=== PATIENT | male | born 1935 | race Caucasian/White ===

== ENCOUNTER 2019-12-08 00:03 | Day surgery (SDC) | payer MEDICARE, OTHER ==
[~2019-12-08 00:03] MED LIST: ACET325 PO; AMIT25 PO; AMLO10 PO; AMOCLA875 PO; ATOR20 PO; AZIT500 PO; Aspirin EC81 MG PO; BASAGLAR K100 UNIT/1 SC; DOXY100 IV; GABA100 PO; GABA300; GUAI600T33 PO; INSUASPI; INSULANI SC; LISI5 PO; OMEP20ER PO; PIOG15 PO; POTA10T PO; RANI150 PO; SACC250C PO; SIMV20; SULTRIDS PO; TORSE20 PO
[2019-12-14] MEDS ORDERED: CLIN300 PO (11:14)
[2019-12-14] MEDS ORDERED: PROBIOTIC ACID PO (11:18)
== END 2019-12-08 12:02 | disposition home or self-care (01) ==
LOC: ATC 00:03
DX: E11.621 Type 2 diabetes mellitus with foot ulcer (principal); L97.419 Non-pressure chronic ulcer of right heel and midfoot with unspecified severity; L03.115 Cellulitis of right lower limb; I10 Essential (primary) hypertension; E11.42 Type 2 diabetes mellitus with diabetic polyneuropathy; K21.9 Gastro-esophageal reflux disease without esophagitis; E11.22 Type 2 diabetes mellitus with diabetic chronic kidney disease; I12.9 Hypertensive chronic kidney disease with stage 1 through stage 4 chronic kidney disease, or unspecified chronic kidney disease; N18.3 Chronic kidney disease, stage 3 (moderate); E78.5 Hyperlipidemia, unspecified; F32.9 Major depressive disorder, single episode, unspecified; Z79.899 Other long term (current) drug therapy; Z79.4 Long term (current) use of insulin; Z79.82 Long term (current) use of aspirin; Z88.8 Allergy status to other drugs, medicaments and biological substances; Z87.891 Personal history of nicotine dependence; Z66 Do not resuscitate; Z85.51 Personal history of malignant neoplasm of bladder
CPT/HCPCS: 96365; 96366; C1751

== ENCOUNTER 2020-01-04 12:46 | Inpatient (IN) | payer OTHER, MEDICARE ==
[~2020-01-04] VITALS: Ht 190.5 cm; Wt 109.0 kg
[~2020-01-04 12:46] MED LIST changes: +CLIN300 PO; +PROBIOTIC ACID PO
[2020-01-04 13:29] LABS: BASOPHILS ABSOLUTE AUTO 0.04 K/mm3 (0.00-0.23); BASOPHILS PERCENT AUTO 0 % (0-2); EOSINOPHILS ABSOLUTE AUTO 0.04 K/mm3 (0.00-0.68); EOSINOPHILS PERCENT AUTO 0 % (0-6); Hematocrit 34.1 % (37.0-53.0); IMMATURE GRAN ABSOLUTE AUTO 0.08 K/mm3 (0.00-0.10); IMMATURE GRAN PERCENT AUTO 1 % (0-1); LYMPHOCYTES PERCENT AUTO 22 % (21-46); MONOCYTES ABSOLUTE AUTO 0.97 K/mm3 (0.16-1.47); MONOCYTES PERCENT AUTO 10 % (4-13); Mean Corpuscular HGB Conc 32.3 g/dL (31.5-36.5); Mean Corpuscular Volume 96 fL (80-100); NEUTROPHILS ABSOLUTE AUTO 6.51 K/mm3 (1.96-9.15); NEUTROPHILS PERCENT AUTO 67 % (41-73); Platelet Count 220 K/mm3 (150-400); RDW Coefficient Variation 15.5 % (11.7-14.2); RDW Standard Deviation 54.4 fL (35.1-46.3); Red Blood Cell Count 3.55 M/mm3 (4.30-5.90); White Blood Cell Count 9.74 K/mm3 (4.00-11.30)
[2020-01-04 13:55] LABS: Albumin, Blood 2.5 g/dL (3.4-5.0); Albumin/Globulin Ratio 0.8 (0.8-1.8); Bilirubin, Total 0.7 mg/dL (0.1-1.0); Bun/Creatinine Ratio 13.1 (12.0-20.0); Calcium, Blood 8.5 mg/dL (8.5-10.1); Creatinine, Blood 1.68 mg/dL (0.60-1.20); Globulin, Blood 3.3 g/dL (2.2-4.0); Potassium, Blood 3.5 mmol/L (3.5-5.5); Total Protein, Blood 5.8 g/dL (6.4-8.2); Troponin I 0.2 ng/mL (0.000-0.040)
[2020-01-04] MEDS ORDERED: CARVEDILOL12.5 MG PO (14:11)
[2020-01-04] MEDS ORDERED: ATOR20 PO (14:11)
[2020-01-04] MEDS ORDERED: AMLO10 PO (14:11)
[2020-01-04] MEDS ORDERED: BASAGLAR K100 UNIT/1 SC (14:11)
[2020-01-04] MEDS ORDERED: OMEP20ER PO (14:12)
[2020-01-04] MEDS ORDERED: LEVO750 PO (14:12)
[2020-01-04] MEDS ORDERED: Aspir 8181 MG PO (14:13)
[2020-01-04] MEDS ORDERED: SENN187 PO (14:13)
[2020-01-04] MEDS ORDERED: PREG150 PO (14:14)
[2020-01-04] MEDS ORDERED: DOCU100 PO (16:38)
[2020-01-04] MEDS ORDERED: Vitamin B Comple1 EA PO (16:39)
[2020-01-04] MEDS ORDERED: MULTI-VITAMIN1 EAC2 PO (16:39)
--- NOTE | 2020-01-04 22:07 | NUR ---
2138 PT ADMITTED TO ROOM 361 PER CART FROM ER; PT MOVED INTO BED VIA SLIDER SHEET X 4 ASSIST; PT ALERT AND ORIENTED X 4; PICTURES OBTAINED LEFT FOOT (PERMIT SIGNED); DENIES PAIN.
--- NOTE | 2020-01-04 23:08 | NUR ---
PTS NIGHTLY MEDS WERE INITIALLY ORDERED TO START 01/05/20; THIS NURSE CALLED Siena LANDAVERDE NP REGARDING PT REQUESTING NIGHT MEDS WITH THE FOLLOWING MEDS ORDERED: --LYRICA 150MG PO NOW --ASA 81MG PO NOW --LIPITOR 20MG PO NOW
--- NOTE | 2020-01-05 04:19 | NUR ---
SHIFT SUMMARY: 84 Y/O MALE RESTED COMFORTABLY ALL SHIFT; PTS RIGHT FOOT WITH DRAINAGE AND LEFT OPEN TO AIR; DENIES PAIN OR NAUSEA; PT HAS PODIATRY CONSULT WITH NO SERVICES AVAILABLE UNTIL 01/06; ALERT AND ORIENTED X 4; BED LOW POSITION WITH CALL LIGHT AT SIDE.
[2020-01-05 05:10] LABS: BASOPHILS ABSOLUTE AUTO 0.02 K/mm3 (0.00-0.23); BASOPHILS PERCENT AUTO 0 % (0-2); EOSINOPHILS ABSOLUTE AUTO 0.09 K/mm3 (0.00-0.68); EOSINOPHILS PERCENT AUTO 1 % (0-6); Hematocrit 32.3 % (37.0-53.0); Hemoglobin 10.5 g/dL (13.5-17.5); IMMATURE GRAN ABSOLUTE AUTO 0.05 K/mm3 (0.00-0.10); IMMATURE GRAN PERCENT AUTO 1 % (0-1); LYMPHOCYTES ABSOLUTE AUTO 1.76 K/mm3 (0.84-5.20); LYMPHOCYTES PERCENT AUTO 23 % (21-46); MONOCYTES ABSOLUTE AUTO 0.71 K/mm3 (0.16-1.47); MONOCYTES PERCENT AUTO 9 % (4-13); Mean Corpuscular HGB 30.7 pg (26.0-34.0); Mean Corpuscular HGB Conc 32.5 g/dL (31.5-36.5); Mean Corpuscular Volume 94 fL (80-100); Mean Platelet Volume 9.3 fL (9.1-12.4); NEUTROPHILS ABSOLUTE AUTO 4.91 K/mm3 (1.96-9.15); NEUTROPHILS PERCENT AUTO 65 % (41-73); Platelet Count 236 K/mm3 (150-400); RDW Coefficient Variation 15.6 % (11.7-14.2); RDW Standard Deviation 53.6 fL (35.1-46.3); Red Blood Cell Count 3.42 M/mm3 (4.30-5.90); White Blood Cell Count 7.54 K/mm3 (4.00-11.30)
--- NOTE | 2020-01-05 13:41 | NUR ---
ECHOCARDIOGRAM COMPLETE
--- NOTE | 2020-01-05 17:06 | NUR ---
SHIFT SUMMARY PATIENT HAS BEEN ALERT AND ORIENTED THROUGHOUT THIS SHIFT. PATIENT IS FRIENDLY AND COOPERATIVE WITH CARE. PATIENT HAS BEEN IN BED THROUGHOUT THIS SHIFT DUE TO DIFFICULTY TRANSFERING WITH WOUND ON HIS FOOT. PATIENT'S SPOUSE IN THE ROOM THIS AM. PATIENT CURRENTLY LAYING IN BED SLEEPING.
--- NOTE | 2020-01-05 22:14 | NUR ---
ALERT AND ORIENTED. TOLERATED HS MEDS, REQUESTED AND RECEIVED STOOL SOFTENER WHICH WAS ALREADY ORDERED - CUSHION DRESSING APPLIED TO DRY ULCER ON BOTTOM OF RIGHT FOOT. VOICED HE WOULD DISCUSS IT WITH THE MD IN THE AM. CALL LIGHT IN REACH
[2020-01-06 04:51] LABS: BASOPHILS ABSOLUTE AUTO 0.02 K/mm3 (0.00-0.23); BASOPHILS PERCENT AUTO 0 % (0-2); EOSINOPHILS ABSOLUTE AUTO 0.08 K/mm3 (0.00-0.68); EOSINOPHILS PERCENT AUTO 1 % (0-6); Hematocrit 33.5 % (37.0-53.0); Hemoglobin 10.8 g/dL (13.5-17.5); IMMATURE GRAN ABSOLUTE AUTO 0.05 K/mm3 (0.00-0.10); IMMATURE GRAN PERCENT AUTO 1 % (0-1); LYMPHOCYTES ABSOLUTE AUTO 2.19 K/mm3 (0.84-5.20); LYMPHOCYTES PERCENT AUTO 31 % (21-46); MONOCYTES ABSOLUTE AUTO 0.72 K/mm3 (0.16-1.47); MONOCYTES PERCENT AUTO 10 % (4-13); Mean Corpuscular HGB 30.7 pg (26.0-34.0); Mean Corpuscular HGB Conc 32.2 g/dL (31.5-36.5); Mean Corpuscular Volume 95 fL (80-100); Mean Platelet Volume 9.2 fL (9.1-12.4); NEUTROPHILS ABSOLUTE AUTO 3.96 K/mm3 (1.96-9.15); NEUTROPHILS PERCENT AUTO 56 % (41-73); Platelet Count 247 K/mm3 (150-400); RDW Coefficient Variation 15.8 % (11.7-14.2); RDW Standard Deviation 55.3 fL (35.1-46.3); Red Blood Cell Count 3.52 M/mm3 (4.30-5.90); White Blood Cell Count 7.02 K/mm3 (4.00-11.30)
--- NOTE | 2020-01-06 05:03 | NUR ---
SHIFT SUMMARY HAS BEEN RESTING QUIETLY WITH FEW INTERRUPTIONS THIS SHIFT. RECEIVED PAIN MED X 1, MED EFFECTIVE. THOMAS DRAINING. CALL LIGHT IN REACH
[2020-01-06 05:25] LABS: Bun/Creatinine Ratio 11.5 (12.0-20.0); Calcium, Blood 8.7 mg/dL (8.5-10.1); Creatinine, Blood 1.3 mg/dL (0.60-1.20); Potassium, Blood 3.7 mmol/L (3.5-5.5)
--- NOTE | 2020-01-06 14:55 | NUR ---
PATIENT HAS NO ACUTE EVENTS TO REPORT OF AT THIS TIME. CONTINUES ON IV ABX WITHOUT S/SX OF ADVERSE REACTIONS NOTED OR REPORTED. VITALS ARE STABLE. WILL CONTINUE TO MONITOR AND PROVIDE CARE NEEDED.
[2020-01-06 16:08] LABS: Vancomycin, Trough 9.8 ug/mL (5.0-10.0)
--- NOTE | 2020-01-06 19:33 | NUR ---
AWAKENED FOR SHIFT CHANGE. AFFECT PLEASANT. REQUESTED AND RECEIVED CUP OF COLD WATER AND EYE DROPS. NO COMPLAINTS VOICED. CALL LIGHT IN REACH.
--- NOTE | 2020-01-07 05:40 | NUR ---
SHIFT SUMMARY HAS BEEN RESTING QUIETLY WITH EFW INTERRUPTIONS THIS SHIFT AFTER RECEIVING HS MEDS. NO NOTED DISTRESS. DRESSING OF RIGHT FOOT INTACT. CALL LIGHT IN REACH.
--- NOTE | 2020-01-07 17:59 | NUR ---
SHIFT SUMMARY PT IS A&OX4. PT IS NON WEIGHT BEARING AND HAS REMAINED IN BED DURING SHIFT. PT ABLE TO CHANGE POSITIONS IN BED WITHOUT ASSISTANCE. HE HAS COMPLAINED OF EYE PAIN DURING SHIFT. PRN ACETOMENTOPHEN AND COOL WASH CLOTH WAS USED TO REDUCE PAIN LEVEL. BEFORE ADDITIONAL ACETAMINOPHEN COULD BE GIVEN PT REQUESTED ADDITIONAL PAIN MED FOR EYE PAIN. PRN NORCO WAS GIVEN, COOLD WASH CLOTH WAS USED AND EYE PAIN REDUCED. PT STILL USING COOL WASH CLOTH ON EYE. PT HAS BEEN IN ROOM THROUGHOUT SHIFT. PT DENIES N/V. PT IS DNR BUT IS NOT WEARING BRACELET. PT DOES NOT WANT TO WEAR BRACELET IN SURGERY BUT CONFIRMED DNR STATUS. PT IN ROOM WITH WATCHING TV.
--- NOTE | 2020-01-08 04:32 | NUR ---
SHIFT SUMMARY HAS BEEN RESTING QUIETLY WITH EFW INTERRUPTIONS THIS SHIFT. MED TELE SINUS ERIC. REQUESTED AND RECEIVED "TWO SENOKOT". RESTING QUIETLY AT THIS WRITING. CALL LIGHT IN REACH. RIGHT FOOT SLIGHTLY SWOLLEN, AWAITING PROCEDURE APPARENTLY SCHEDULED FOR TOMORROW.
[2020-01-08 05:00] LABS: BASOPHILS ABSOLUTE AUTO 0.03 K/mm3 (0.00-0.23); BASOPHILS PERCENT AUTO 0 % (0-2); EOSINOPHILS ABSOLUTE AUTO 0.13 K/mm3 (0.00-0.68); EOSINOPHILS PERCENT AUTO 1 % (0-6); Hematocrit 34.6 % (37.0-53.0); IMMATURE GRAN ABSOLUTE AUTO 0.09 K/mm3 (0.00-0.10); IMMATURE GRAN PERCENT AUTO 1 % (0-1); LYMPHOCYTES PERCENT AUTO 24 % (21-46); MONOCYTES ABSOLUTE AUTO 0.82 K/mm3 (0.16-1.47); MONOCYTES PERCENT AUTO 8 % (4-13); Mean Corpuscular HGB 30.1 pg (26.0-34.0); Mean Corpuscular HGB Conc 31.8 g/dL (31.5-36.5); Mean Corpuscular Volume 95 fL (80-100); Mean Platelet Volume 8.9 fL (9.1-12.4); NEUTROPHILS ABSOLUTE AUTO 6.48 K/mm3 (1.96-9.15); NEUTROPHILS PERCENT AUTO 65 % (41-73); Platelet Count 253 K/mm3 (150-400); RDW Coefficient Variation 15.8 % (11.7-14.2); RDW Standard Deviation 54.5 fL (35.1-46.3); Red Blood Cell Count 3.65 M/mm3 (4.30-5.90); White Blood Cell Count 9.95 K/mm3 (4.00-11.30)
[2020-01-08 05:24] LABS: Anion Gap 4 mmol/L (6-16); Blood Urea Nitrogen 13 mg/dL (8-24); Bun/Creatinine Ratio 10.9 (12.0-20.0); CO2, Blood 28 mmol/L (21-32); Chloride, Blood 110 mmol/L (98-108); Creatinine, Blood 1.19 mg/dL (0.60-1.20); Glomerular Filtration Rate >60 (60-); Glucose, Blood 66 mg/dL (70-99); Potassium, Blood 4.4 mmol/L (3.5-5.5); Sodium, Blood 142 mmol/L (136-145)
--- NOTE | 2020-01-08 11:28 | NUR ---
Pt. id much better encouraged pt. and offered prayers.
[2020-01-08 15:43] LABS: Vancomycin, Trough 13.8 ug/mL (5.0-10.0)
--- NOTE | 2020-01-08 17:56 | NUR ---
SHIFT SUMMARY PT IS A&OX4. PT EXPERIENCED EYE PAIN IN THE MORNING AND MEDICATED WITH PRN NORCO THAT HELPED TO REDUCE THE PAIN. PT HAD A HEADACHE IN THE AFTERNOON AND RECEIVED PRN ACETAMENOPHEN AND COOL WASHCLOTH. PT REPORTED THE HEADACHE WAS RESOLVED. PT FAMILY, AND DAUGHTER, HAS COME TO VISIT DURING SHIFT. PT WAS GIVEN THE OKAY TO SIT ON THE SIDE OF THE BED DRUING MEALS BY PT. SURGERY IS SCHEDULE FOR TOMORROW. AFTERNOON SCHEDULED COREG HELD DUE TO PULSE OF 53. PT IS WATCHING TV IN ROOM, DENIES N,V & P AT THIS.
--- NOTE | 2020-01-09 00:25 | NUR ---
covid 19 specimen obtained and taken to lab for processing. Call light in reach
--- NOTE | 2020-01-09 03:57 | NUR ---
SHIFT SUMMARY HAS BEEN NPO SINCE 99 FOR PROCEDURE SCHEDULED TODAY OF RIGHT FOOT. RESTING QUIETLY WITH FEW INTERRUPTIONS. CALL LIGHT IN REACH
--- NOTE | 2020-01-09 13:37 | NUR ---
Met. pt. lying in bed and is much better,encouraged pt. and offered spirfitual support and prayers
--- NOTE | 2020-01-09 15:00 | NUR ---
TRANSFERED TO [facility]IA GURNEY FROM [facility]. History, Chart, Medications and Allergies reviewed before start of procedure. Lungs clear T/O to Auscultation. Patient confirms NPO status and agrees with scheduled surgery. Pre-Op teaching done. Pt verbalizes understanding.
--- NOTE | 2020-01-09 17:21 | NUR ---
DR. GIL ORDERED 25ML 50% DEXTROSE IV NOW FOR CBG 81.
--- NOTE | 2020-01-09 17:24 | NUR ---
SHIFT SUMMARY PT NPO FOR SURGICAL PROCEDURE. PT BG AT 66 AND GAVE IV DEXTROSE X2 THIS SHIFT PRIOR TO SURGERY. PT TRANSFERRED FOR SURGERY AT 1435. PT MEDICATED X1 FOR HEADACHE THIS SHIFT PRIOR TO SURGERY PER EMAR. CURRENTLY AWAITING PT TRANSFER BACK TO UNIT.
--- NOTE | 2020-01-10 06:43 | NUR ---
SHIFT SUMMARY PT IS AN 84 Y/O MALE, ADMITTED FOR RLE OSTEOMYELITIS. HE IS A&0 X 2, AND CURRENTLY ON BEDREST. PT IS 1 DAY POST R GREAT TOE AMPUTATION. SURGICAL DRESSING IS C/D/I. PT WAS MEDICATED ONCE FOR PAIN IN HIS SURGICAL SITE WITH PO NORCO. NO COMPLAINTS OF NAUSEA OR SOB. UROSTOMY IN PLACE, PATENT AND DRAINING CLEAR YELLOW URINE. TELE SHOWING SINUS ERIC IN THE 50S. VITAL SIGNS OTHERWISE STABLE. PT SLEPT WELL THROUGH THE NIGHT. NO OTHER ACUTE CHANGES IN PT CONDITION NOTED. WILL CONTINUE TO MONITOR AND TREAT PER EMAR UNTIL HAND OFF TO DAY SHIFT RN.
[2020-01-10 15:35] LABS: Vancomycin, Trough 17.1 ug/mL (5.0-10.0)
--- NOTE | 2020-01-10 17:20 | NUR ---
SHIFT SUMMARY PT MEDICATED FOR PAIN X3 THIS SHIFT. PT GROANS WHEN IN PAIN AND DID NOT CALL TO NOTIFY ABOUT PAIN. FREQUENT ROUNDING REQUIRED TO MANAGE PT STATUS DUE TO PT COGNITION. PT REPORTS INFREQUENT PAIN IN RIGHT FOOT. PT DID NOT NEED INSULIN COVERAGE THIS SHIFT AND HAS POOR INTAKE FOR BREAKFAST AND LUNCH. PT WORKED WITH THE PT THIS AM. PT REPORTS PT IS A 2 PERSON TRANSFER. PATIENT IS AOX2-3. RIGHT FOOT IS ELEVATED ON A PILLOW. HAS BEEN IN AND OUT THROUGHOUT THE DAY. CALL LIGHT IS IN REACH AND BED IS IN LOW POSITION.
--- NOTE | 2020-01-11 06:26 | NUR ---
SHIFT SUMMARY PT IS AN 84 Y/O MALE, ADMITTED FOR RLE OSTEOMYELITIS AND 1 DAY POST R GREAT TOE AMPUTATION. SURGICAL DRESSING IS C/D/I. PT IS A&O X 2, AND CURRENTLY ON BEDREST/2P MAX ASSIST. HE WAS MEDICATED TWICE FOR PAIN WITH PRN HYDROCODONE. NO COMPLAINTS OF NAUSEA OR SOB. VITAL SIGNS STABLE. PT SLEPT WELL THROUGH THE NIGHT. NO ACUTE CHANGES IN PT CONDITION NOTED. WILL CONTINUE TO MONITOR AND TREAT PER EMAR UNTIL HAND OFF TO DAY SHIFT RN.
--- NOTE | 2020-01-11 07:21 | NUR ---
ASSUMED CARE OF PT- BEDSIDE REPORT COMPLETED WITH NIGHT NATE JOY. PT ALERT AND ORIENTED 2P MAX ASSIST WITH TRANSFERS RIGHT GREAT TOE AMPUTATION TUESDAY. STILL HAS SURGICAL DRESSING IN PLACE. PT ON TELE SBR AT 57. PT CALLED JUST AFTER REPORT C/O "REAL PAIN" IN HIS RIGHT FOOT. PT HAS PAIN MEDS IN EMAR AVAILABLE SHORTLY, WILL MEDICATE WHEN AVAILABLE.
[2020-01-11 09:14] LABS: Albumin, Blood 2.4 g/dL (3.4-5.0); Anion Gap 6 mmol/L (6-16); Blood Urea Nitrogen 16 mg/dL (8-24); Bun/Creatinine Ratio 15.2 (12.0-20.0); CO2, Blood 25 mmol/L (21-32); Calcium, Blood 8.4 mg/dL (8.5-10.1); Chloride, Blood 108 mmol/L (98-108); Creatinine, Blood 1.05 mg/dL (0.60-1.20); Glomerular Filtration Rate >60 (60-); Glucose, Blood 98 mg/dL (70-99); Phosphorus, Blood 2.6 mg/dL (2.5-4.9); Potassium, Blood 4.2 mmol/L (3.5-5.5); Sodium, Blood 139 mmol/L (136-145)
[2020-01-11 09:26] LABS: Hematocrit 33.3 % (37.0-53.0); Hemoglobin 10.6 g/dL (13.5-17.5); Mean Corpuscular HGB 30.5 pg (26.0-34.0); Mean Corpuscular HGB Conc 31.8 g/dL (31.5-36.5); Mean Corpuscular Volume 96 fL (80-100); Mean Platelet Volume 9.2 fL (9.1-12.4); Platelet Count 244 K/mm3 (150-400); RDW Coefficient Variation 16.1 % (11.7-14.2); RDW Standard Deviation 55.8 fL (35.1-46.3); Red Blood Cell Count 3.48 M/mm3 (4.30-5.90); White Blood Cell Count 10.35 K/mm3 (4.00-11.30)
--- NOTE | 2020-01-11 19:49 | NUR ---
SHIFT SUMMARY- PT HAS HAD NO ACUTE CHANGE T/O THE SHIFT. PAIN MEDS PRN. CALLED DR TO GET PARAMETERS FOR CARVEDILOL THE PT HR HAS BEEN ERIC. SEE EMAR FOR DETAILS. LANTUS DOSE ADRESSED WELL SINCE THE PT BG'S HAVE BEEN A LITTLE LOW AND THE PT HAS DECLINED TO TAKE HIS LANTUS DT LOW SUGARS A COUPLE OF TIMES RECENTLY. CAME AND CHANGED THE WOUND DRESSING AT THE SURGICAL SITE. REQUESTED THAT HE PLACE WOUND CARE ORDERS FOR STAFF IF WE ARE TO DO THE DRESSING CHANGE. STATED THE DRESSING WILL NOT NEED TO BE CHANGED UNTIL TUESDAY. BEDSIDE REPORT COMPLETED WITH NIGHT RN PT IN BED CALL LIGHT IN REACH NO S&S OF DISTRESS NOTED AT THE TIME OF SHIFT CHANGE.
--- NOTE | 2020-01-12 04:02 | NUR ---
SHIFT SUMMARY ADMITTED FOR OSTEOMYELITIS OF RT FOOT. DNR CODE. PLAN IS FOR DC TO [facility], POSSIBLY TUESDAY. A UROSTOMY IS IN PLACE AND DRAINING PATENT INTO A THOMAS BAG. THAT DRESSING WAS CHANGED 01/10. THIS PT UNDERWENT AN AMPUTATION OF HIS RT GREAT TOE. HIS RT FOOT DRESSING WAS CHANGED ON 01/10. IV ANTIBIOTICS ARE SCHEDULED. TELEMETRY: ERIC @ 53 BPM. HE DOES DESATURATE WHEN LAYING FLAT. PERTINENT HX: NEUROPATHY, DM2
--- NOTE | 2020-01-12 07:17 | NUR ---
ASSUMED CARE OF PT- BEDSIDE REPORT COMPLETED WITH NIGHT NATE RUBI. PT HAD NO ACUTE CHANGE T/O THE NIGHT. PT REFUSED TO WEAR THE CPAP SATS MAINTAINED UNTIL HE SLEPT ON HIS BACK THEN HE DESATURATED TO THE LOW 80'S. SATS IN THE LOW TO MID 90'S AT THIS TIME LYING ON HIS RIGHT SIDE.
[2020-01-12 15:40] LABS: Vancomycin, Trough 16.9 ug/mL (5.0-10.0)
--- NOTE | 2020-01-12 17:15 | NUR ---
SHIFT SUMMARY- PT HAS HAD NO ACUTE CHANGES T/O THE SHIFT. PT HAS BEEN UP IN CHAIR FOR ALL MEALS AND RECIEVED A FULL BED BATH. ALL HEPARIN INJECTIONS REQUIRE A BANDAID. PT WILL BLEED PROFUSELY FROM THE INJECTION SITE WITHOUT IT. PT CURRENTLY UP IN THE CHAIR AWAITING DINNER, MEDICATED FOR PAIN IN THE RIGHT FOOT /10 PER EMAR. PT CARVEDILOL GIVEN, HR HAS BEEN TRENDING IN THE 60'S MOST OF THE DAY. PER MD PARAMETERS MED ADMINISTERED.
--- NOTE | 2020-01-13 04:01 | NUR ---
[employer] UNIT FEEDER SUMMARY PT APPEARED TO SLEEP T/O MOST OF SHIFT. USES CALL LIGHT APPROPRIATELY. DENIES PAIN OR DISCOMFORT. NO ACUTE CHANGES OR SIGNS OF DISTRESS. RA WITH CONTINOUS BIOX IN PLACE. BED IN LOWEST POSITION WITH CALL LIGHT IN REACH. WILL CONTINUE TO MONITOR AND REPORT TO ONCOMING RN.
--- NOTE | 2020-01-13 18:43 | NUR ---
SHIFT SUMMARY- PT PLANNED TO GET BACK INTO BED AT 1630 FOR THE VANCO INFUSION AND RN WOULD PERFORM WOUND CARE. BOTH OF PT IV ACCESS WERE LOST ONE INFILTRATED AND THE OTHER NOT PATENT AND LEAKING. ATTEMPTED TO START IV IN THE RIGHT FOREARM, UNSUCESSFUL, CALLED CLINICAL ACCOUNT MANAGER TO ATTEMPT A POWER GLIDE, CLINICAL ACCOUNT MANAGER TRIED PG PLACEMENT AND THEN TRIED A PERIPHERAL AND GOT A GOOD PATENT IV IN THE LEFT AC. PT MAY NEED A PICC LINE FOR OUT PT ABX. IV VANCO STARTED LATE D/T NO ACCESS, PO CARVEDILOL HAS BEEN HELD TODAY D/T BRADYCARDIA ON TELE PER PARAMETERS. PT HAS NOT YET HAD THE PLANNED WOUND CARE TODAY D/T ATTEMPTS TO GAIN IV ACCESS. PT HAS HAD NO ACUTE CHANGES T/O THE SHIFT AND HAS NOT NEEDED ANY PAIN MANAGEMENT MEDS TODAY SO FAR. PT CURRENTLY IN BED CALL LIGHT IN REACH, IV VANCO RUNNING IN NEW LEFT AC IV AND PT IS ATTEMPTING TO EAT DINNER.
[2020-01-14] MEDS ORDERED: UBID10 PO (11:37)
[2020-01-14] MEDS ORDERED: AMOCLA875 PO (11:38)
[2020-01-14] MEDS ORDERED: ARTIFICIAL TEAR15 M2 BOTHEYES (11:38)
[2020-01-14] MEDS ORDERED: LACT PO (11:38)
--- NOTE | 2020-01-14 12:24 | NUR ---
pt wanted to rest will return to attemtp advance directives.
--- NOTE | 2020-01-14 15:03 | NUR ---
Met pt. sitting in a chair resting ,pt. reports doing and may be harvey g home today or felicita offered prayers for the pt.
--- NOTE | 2020-01-14 16:20 | NUR ---
SUMMARY/DISCHARGE PT UP w [facility] THIS AM, AMBULATE IN [place] w [facility] TO EXERCISE ROOM & BACK. OCCTHER IN FOR TX/EVAL. PT/OT RECOMMEND HOME w HOMEHEALTH. DR SINGER INITIALLY ORDER [facility] HOWEVER CHANGE ORDERS TO HOME w HH. LEATHER PIECE INSPECTOR STATE HH WILL BE UNAVAIL X 2WKS. DR ORDER WOUND CLINIC DRSG CHANGES HOWEVER SOLE CEMENTER STATE WHEN ATTEMPT TO ARRANGE WAS TOLD WOUND CLINIC BOOKED OUT 3 WKS. ARRANGE APPT w DR LAST FOR THUR FOR NEXT WOUND CARE/DRSG CHANGE. NOC RN PLACED NEW DRSG DURING NOC. PT STATE SHE IS FAMILIAR AFTER WATCHING PROCEDURE w DR LAST, STATE FEELS CAPABLE OF WOUND CARE. SUPPLIES PROVIDED, DRSG CHANGE ORDERS REVIEWED w . D/C INSTRUCT PROVIDED. IV D/C INTACT. RECREATION THERAPY DIRECTOR PROVIDE BEDBATH & ASSIST PT TO DRESS/GATHER BELONGINGS. W/C ESCORT FROM HOSP PROVIDED. PT & STATE SATISFACTION, PLEASANT/APPRECIATIVE.
== END 2020-01-14 16:08 | disposition home health service (06) | DRG 616 ==
LOC: ER 12:46 → MEDS 22:00
PROVIDERS: Emergency Medicine; Internal Medicine; Nurse Practitioner Acute Care; Pharmacist; Podiatrist; ADMIT Internal Medicine
PROC: 0Y6R0Z0 Detachment at Right 2nd Toe, Complete, Open Approach (ICD-10-PCS; 2020-01-09)
PROC: 0Y6P0Z0 Detachment at Right 1st Toe, Complete, Open Approach (ICD-10-PCS; principal; 2020-01-09 17:15)
DX: E11.621 Type 2 diabetes mellitus with foot ulcer (principal); I21.A1 Myocardial infarction type 2; C85.90 Non-Hodgkin lymphoma, unspecified, unspecified site; M86.171 Other acute osteomyelitis, right ankle and foot; M00.9 Pyogenic arthritis, unspecified; L97.514 Non-pressure chronic ulcer of other part of right foot with necrosis of bone; Z11.59 Encounter for screening for other viral diseases; E11.69 Type 2 diabetes mellitus with other specified complication; E11.40 Type 2 diabetes mellitus with diabetic neuropathy, unspecified; F32.9 Major depressive disorder, single episode, unspecified; I35.0 Nonrheumatic aortic (valve) stenosis; I48.91 Unspecified atrial fibrillation; K21.9 Gastro-esophageal reflux disease without esophagitis; I12.9 Hypertensive chronic kidney disease with stage 1 through stage 4 chronic kidney disease, or unspecified chronic kidney disease; E11.22 Type 2 diabetes mellitus with diabetic chronic kidney disease; N18.3 Chronic kidney disease, stage 3 (moderate); R55 Syncope and collapse; K59.09 Other constipation; Z91.81 History of falling; Z85.51 Personal history of malignant neoplasm of bladder; E78.5 Hyperlipidemia, unspecified; Z85.46 Personal history of malignant neoplasm of prostate; Z87.891 Personal history of nicotine dependence; Z66 Do not resuscitate
CPT/HCPCS: 36415; 70450; 73630; 80048; 80053; 80069; 80202; 82565; 82947; 83605; 83880; 84484; 85025; 85027; 85651; 86140; 87040; 87071; 87075; 87205; 88305; 88311; 93005; 93010; 93306; 93922; 93971; 94762; 96365; 96366; 97110; 97112; 97116; 97162; 97166; 97530; 97535; 99285-25; A9270; A9270-GY; J0696; J1644; J2704; J3010; J3370; J7050; U0002

== ENCOUNTER 2020-02-16 14:40 | Inpatient (IN) | payer MEDICARE, OTHER ==
[~2020-02-16] VITALS: Ht 190.5 cm; Wt 104.1 kg
[~2020-02-16 14:40] MED LIST changes: +ARTIFICIAL TEAR15 M2 BOTHEYES; +Aspir 8181 MG PO; +CARVEDILOL12.5 MG PO; +DOCU100 PO; +LACT PO; +LEVO750 PO; +MULTI-VITAMIN1 EAC2 PO; +PREG150 PO; +SENN187 PO; +UBID10 PO; +Vitamin B Comple1 EA PO
[2020-02-16 15:13] LABS: BASOPHILS ABSOLUTE AUTO 0.05 K/mm3 (0.00-0.23); BASOPHILS PERCENT AUTO 0 % (0-2); EOSINOPHILS ABSOLUTE AUTO 0.03 K/mm3 (0.00-0.68); EOSINOPHILS PERCENT AUTO 0 % (0-6); Hematocrit 34.7 % (37.0-53.0); Hemoglobin 11.2 g/dL (13.5-17.5); IMMATURE GRAN ABSOLUTE AUTO 0.17 K/mm3 (0.00-0.10); IMMATURE GRAN PERCENT AUTO 1 % (0-1); LYMPHOCYTES ABSOLUTE AUTO 3.56 K/mm3 (0.84-5.20); LYMPHOCYTES PERCENT AUTO 18 % (21-46); MONOCYTES ABSOLUTE AUTO 1.11 K/mm3 (0.16-1.47); MONOCYTES PERCENT AUTO 6 % (4-13); Mean Corpuscular HGB 30.6 pg (26.0-34.0); Mean Corpuscular HGB Conc 32.3 g/dL (31.5-36.5); Mean Corpuscular Volume 95 fL (80-100); Mean Platelet Volume 9.4 fL (9.1-12.4); NEUTROPHILS ABSOLUTE AUTO 14.53 K/mm3 (1.96-9.15); NEUTROPHILS PERCENT AUTO 75 % (41-73); NRBC ABSOLUTE 0.03 K/mm3 (0.00-0.02); NRBC Auto 0.2 /100 WBC (0.0-0.2); Platelet Count 196 K/mm3 (150-400); RDW Coefficient Variation 18.6 % (11.7-14.2); RDW Standard Deviation 65.3 fL (35.1-46.3); Red Blood Cell Count 3.66 M/mm3 (4.30-5.90); White Blood Cell Count 19.45 K/mm3 (4.00-11.30)
[2020-02-16 15:39] LABS: Albumin, Blood 3.5 g/dL (3.4-5.0); Albumin/Globulin Ratio 1.5 (0.8-1.8); Bun/Creatinine Ratio 17.6 (12.0-20.0); Calcium, Blood 8.6 mg/dL (8.5-10.1); Creatinine, Blood 1.25 mg/dL (0.60-1.20); Globulin, Blood 2.3 g/dL (2.2-4.0); Potassium, Blood 4.1 mmol/L (3.5-5.5); Total Protein, Blood 5.8 g/dL (6.4-8.2); Troponin I 0.031 ng/mL (0.000-0.040)
[2020-02-16 18:02] LABS: Adenovirus Not Detected (NOT DETECT); Bordetella pertussis Not Detected (NOT DETECT); Chlamydophila pneumoniae Not Detected (NOT DETECT); Coronavirus 229E Not Detected (NOT DETECT); Coronavirus HKU1 Not Detected (NOT DETECT); Coronavirus NL63 Not Detected (NOT DETECT); Coronavirus OC43 Not Detected (NOT DETECT); Human Metapneumovirus Not Detected (NOT DETECT); Human Rhinovirus/Enterovirus Not Detected (NOT DETECT); Influenza A/2009-H1 Not Detected (NOT DETECT); Influenza A/H1 Not Detected (NOT DETECT); Influenza A/H3 Not Detected (NOT DETECT); Influenza B Not Detected (NOT DETECT); Mycoplasma pneumoniae Not Detected (NOT DETECT); Parainfluenza Virus 1 Not Detected (NOT DETECT); Parainfluenza Virus 2 Not Detected (NOT DETECT); Parainfluenza Virus 3 Not Detected (NOT DETECT); Parainfluenza Virus 4 Not Detected (NOT DETECT); Respiratory Syncytial Virus Not Detected (NOT DETECT); SARS-Cov-2 (COVID-19), BioFire Not Detected (NOT DETECT)
[2020-02-17 02:20] LABS: Hematocrit 35.2 % (37.0-53.0); Hemoglobin 11.3 g/dL (13.5-17.5); Mean Corpuscular HGB 30.8 pg (26.0-34.0); Mean Corpuscular HGB Conc 32.1 g/dL (31.5-36.5); Mean Corpuscular Volume 96 fL (80-100); Mean Platelet Volume 9.5 fL (9.1-12.4); Platelet Count 212 K/mm3 (150-400); RDW Coefficient Variation 18.9 % (11.7-14.2); RDW Standard Deviation 67.7 fL (35.1-46.3); Red Blood Cell Count 3.67 M/mm3 (4.30-5.90); White Blood Cell Count 32.76 K/mm3 (4.00-11.30)
[2020-02-17 02:36] LABS: Bun/Creatinine Ratio 18.7 (12.0-20.0); Calcium, Blood 8.4 mg/dL (8.5-10.1); Creatinine, Blood 1.39 mg/dL (0.60-1.20); Potassium, Blood 4.5 mmol/L (3.5-5.5)
--- NOTE | 2020-02-17 06:13 | NUR ---
SHIFT SUMMARY PT WAS A NEW ADMIT DURING THE NIGHT, ADMITTED FOR NEW ONSET CHEST PAIN. HE IS A&O X 2, VERY FORGETFUL AT TIMES. PT DENIED CHEST PAIN ON ARRIVAL, BUT PER INSULATOR APPRENTICE DID COMPLAIN OF CHEST PAIN FOR A SHORT PERIOD OF TIME WHILE IN IMAGING FOR CTA, BUT DENIED ON RETURN TO THE FLOOR. TROP INCREASED DURING THE NIGHT, FROM 0.031 IN THE ED, TO 4.190 AT 2003 [address]0 16.[address] KIMBROUGH NOTIFIED, PT STARTED ON HEPARIN DRIP AT 13 U/KG/HR OR 26 ML/HR. PT ADMITTED AND REMAINED ON BIPAP WITH 8L BLEED IN DUE TO DESATTING TO THE 80S WHEN ASLEEP. VITAL SIGNS OTHERWISE STABLE. NO COMPLAINTS OF ACUTE SOB OR NAUSEA. NO OTHER CHANGES IN PT CONDITION NOTED SINCE ADMISSION. WILL CONTINUE TO MONITOR AND TREAT PER EMAR UNTIL HAND OFF TO DAY SHIFT RN.
--- NOTE | 2020-02-17 09:38 | NUR ---
ASSUME CARE: PT IS ALERT BUT IS FORGETFUL, WAS ON BIPAP THIS MORNING WITH 8L O2 BLEED SATS ABOVE 90%, HRR SINUS AT 70'S, BP SYSTOLIC 125, AFEBRILE. PT STARTED GETTING A LITTLE AGITATED TOOK OFF HIS BIPAP PT WAS PUT ON 8L O2 VIA OXIMYZER THEN PT TOOK IT OFF AGAIN PT DESATS TO 70-80'S RT WAS CALLED AND WAS IN THE ROOM SWITCED PT BACK TO BIPAP, PT COMPLAINING HE COULDNT BREATHE WITH THE MASK ON THEN STARTED HAVING CHEST PAINS THAT STAYS ON THE CENTER OF THE CHEST 5/10 PAIN, DR BROWNLEE MADE AWARE ORDER TO DO EKG, NITRO PATCH AND TABLET. EKG SHOWS SOME ST DEPRESSION PER DR BROWNLEE, PT STATED THE NITRO HELPED WITH THE PAIN WENT DOWN TO 4/[address] BANDA AND DR BROWNLEE DISCUSSED WITH THE ABOUT THE ANGIO PROCEDURE, PT FOR ANGIO TODAY. PT REMAINED ON BIPAP, HEPARIN GTT AT 13U/KG/HR, REMAINS AT BEDSIDE.
--- NOTE | 2020-02-17 10:18 | NUR ---
PT TAKEN TO HEALTHCARE RISK CONTROL CONSULTANT AT THIS TIME FOR ANGIO PROCEDURE.
--- NOTE | 2020-02-17 12:30 | NUR ---
INITIAL ASSESSMENT PATIENT LETH[place], [place]. PATIENT ALERT AND ORIENTED EXCEPT TO TOWN AND WHY HE IS IN THE HOSPITAL. PATIENT WEAK BUT ABLE TO MOVE ALL EXTREMITIES. PATIENT AFEBRILE. PATIENT COMPLAINS OF 4/10 CHEST PAIN. NITRO DRIP INFUSING. PATIENT SATTING 90% AND GREATER ON CPAP 20/10, 8 L OXYGEN BLEED IN. INSPIRATORY WHEEZE NOTED IN RIA. RUL CLEAR. LOWER LOBES DIMINISHED TO AUSCULTATION. PATIENT COUGHING UP SMALL AMOUNT OF THIN, BLOODY SECRETIONS. PATIENT NORMALLY RA AT HOME AND USES HOME CPAP AT HS. PATIENT IN SR, HR 70S TO 80S. SBP 130S. 1+ BLE EDEMA NOTED. GI WNL. UROSTOMY TO R ABDOMEN, DRAINING ORANGE COLORED URINE. STOMA PINK AND MOIST. SKIN AROUND STOMA APPEARS C/D/I. SCATTERED BRUISING T/O BODY NOTED. MIDLINE ABD SCAR NOTED. R GREAT TOE AMPUTATED- DRESSING IN PLACE, C/D/I. R FOOT REDDENED/ SURGICAL GARMENT FITTER AMPUTATION AREA. R RADIAL TR BAND IN PLACE FROM DOUGH MOLDER HAND. 10 CC AIR INSTILLED PER DOUGH MOLDER HAND RNS. NO BLEEDING, BRUISING, OR HEMATOMA NOTED. NITRO INFUSING AT 15 MCG/ MINUTE. BED LOW, CALL LIGHT IN REACH. PRESENT. PATIENT ORIENTED TO UNIT, ROOM AND CALL LIGHT. WILL CONTINUE TO MONITOR PATIENT FREQUENTLY THROUGHOUT SHIFT.
--- NOTE | 2020-02-17 13:19 | NUR ---
ECHOCARDIOGRAM COMPLETE
--- NOTE | 2020-02-17 14:57 | NUR ---
2 CC AIR DEFLATED FROM TR BAND. NO BLEEDING, BRUISING, HEMATOMA NOTED.
--- NOTE | 2020-02-17 15:20 | NUR ---
2 CC AIR DEFLATED FROM TR BAND. SITE REMAINS WITHOUT CHANGE.
--- NOTE | 2020-02-17 15:30 | NUR ---
2 CC AIR DEFLATED FROM TR BAND. REMAINS WNL.
--- NOTE | 2020-02-17 16:00 | NUR ---
2 CC AIR REMAINS IN TR BAND. R RADIAL REMAINS WNL- NO BLEEDING, BRUISING, HEMATOMA NOTED. PATIENT REMAINS ON CPAP WITH 10 L OF O2 BLED IN. PATIENT AFEBRILE. HR 60S TO 70S. SBP 130S. PATIENT DENIES CHEST PAIN. WILL CONTINUE TO MONITOR.
--- NOTE | 2020-02-17 16:01 | NUR ---
2 CC AIR DEFLATED FROM TR BAND. SITE REMAINS STABLE WITH NO CHANGES.
--- NOTE | 2020-02-17 16:27 | NUR ---
TR BAND COMPLETELY DEFLATED. TR BAND AND ARMBOARD REMAIN IN PLACE. SITE REMAINS STABLE WITH NO BLEEDING, BRUISING, OR HEMATOMA NOTED.
--- NOTE | 2020-02-17 19:23 | NUR ---
SHIFT SUMMARY PATIENT PLEASANT AND COOPERATIVE T/O SHIFT. PATIENT STATES HE IS FEELING MUCH BETTER. STATES IT IS NICE TO SEE PATIENT SMILING AND LAUGHING AGAIN. PATIENT HAS REMAINED AFEBRILE. PATIENT CP VANISHED DURING SHIFT. DR. BROWNLEE WOULD STILL LIKE NITRO DRIP TO REMAIN ON THROUGHOUT NIGHT AT 10 MCG/ MINUTE. STATED NITRO DRIP CAN STILL BE INCREASED IF CHEST PAIN COMES BACK. PATIENT ON CPAP WITH 8 TO 10 L O2 BLEED IN. PATIENT TOOK BREAK FROM CPAP AND PLACED ONTO OXYMIZER 8 TO 10 L FOR MORE THAN TWO HOURS AND TOLERATED WELL. PATIENT REMAINED IN SR. HR AND BP STABLE. NO BM THIS SHIFT. PATIENT STARTED ON SOFT/ ADA/ CARDIAC DIET. PATIENT WAS VERY HUNGRY BUT THEN ONLY TOOK A COUPLE BITES OF HIS FOOD BEFORE WANTING TO GO BACK TO SLEEP. UROSTOMY DRAINED 550 MLS OF ORANGE COLORED URINE. NO CHANGE TO SKIN. TR BAND DEFLATED DURING SHIFT. TR BAND AND ARM BOARD REMAIN IN PLACE. NO BLEEDING, BRUISING, OR HEMATOMA NOTED. NITRO INFUSING AT 10 MCG/ MINUTE, HEPARIN AT 13 UNITS/ KG/ HOUR. PATIENT HAD ECHO THIS SHIFT. BED LOW, CALL LIGHT IN REACH. NO COMPLAINTS AT THIS TIME. REPORT HAS BEEN GIVEN TO ASSUMING MATERIAL HANDLER NURSE.
--- NOTE | 2020-02-17 21:30 | NUR ---
ASSUMPTION OF CARE PT RESTING IN BED, ORIENTED x4, PT ON 8L PER OXIMIZER, TOLERATING WELL. MONITOR SHOWS SINUS RHYTHM WITH HR 70'S, MILD HYPERTENSION NOTED. PT MOVES ALL EXTREMETIES INDEPENDENTLY, UROSTOMY IN PLACE DRAINING ORANGE COLORED URINE. AT APPROX 1930 PT REPORTED INCREASING CP TO A 4/10, NITRO GTT INCREASED, O2 SATURATIONS BEGAN DECREASING TO LOW TO MID 80'S, PT WAS PLACED ON CPAP DID NOT TOLERATE WELL AND WAS PLACED BACK ON OXIMIZER DUE TO AGITATION WITH CPAP, PTS CHEST PAIN CONTINUED TO INCREASE, PT REPROTED WORSE WITH INSPIRATION BUT WAS ALSO A CONSTANT ACHE. O2 SATURATIONS CONTINUED IN LOW 80'S, CPAP PLACED BACK ON PATIENT WITH 15L BLEED IN. CALL TO DR BROWNLEE AND NEW ORDER FOR EKG, 2MG MORPHINE Q4H PRN, AND ONE TIME DOSE OF 300mg PLAVIX PO. EKG COMPLETE, MEDICATIONS ADMINISTERED, PT CONTINUES ON CPAP WITH 15L O2 BLEED IN AND O2 SATURATIONS MAINTAINING AT 88-89%, RT CALLED TO ROOM TO ADJUST SETTINGS.
--- NOTE | 2020-02-17 23:08 | NUR ---
RT TO ROOM FOR SUSTAINED HYPOXIA, O2 SATURATIONS 88-89%, CPAP SETTINGS CHANGED TO 18/14.
--- NOTE | 2020-02-18 | NUR ---
PT RESTING WELL, DENIES CP, NITRO GTT TITRATED DOWN (SEE FLOWSHEET)
--- NOTE | 2020-02-18 02:54 | NUR ---
O2 CONTINUES TO DECREASE, PT MAINTAINING O2 SATURATIONS @ 89%, PT TRANSITIONED TO V60 WITH CPAP SETTINGS OF 10 AND FIO2 70%.
[2020-02-18 03:36] LABS: BASOPHILS ABSOLUTE AUTO 0.03 K/mm3 (0.00-0.23); BASOPHILS PERCENT AUTO 0 % (0-2); EOSINOPHILS PERCENT AUTO 0 % (0-6); Hematocrit 32.1 % (37.0-53.0); Hemoglobin 10.3 g/dL (13.5-17.5); IMMATURE GRAN ABSOLUTE AUTO 0.13 K/mm3 (0.00-0.10); IMMATURE GRAN PERCENT AUTO 1 % (0-1); LYMPHOCYTES ABSOLUTE AUTO 2.84 K/mm3 (0.84-5.20); LYMPHOCYTES PERCENT AUTO 17 % (21-46); MONOCYTES ABSOLUTE AUTO 1.32 K/mm3 (0.16-1.47); MONOCYTES PERCENT AUTO 8 % (4-13); Mean Corpuscular HGB 30.8 pg (26.0-34.0); Mean Corpuscular HGB Conc 32.1 g/dL (31.5-36.5); Mean Corpuscular Volume 96 fL (80-100); Mean Platelet Volume 9.7 fL (9.1-12.4); NEUTROPHILS ABSOLUTE AUTO 12.14 K/mm3 (1.96-9.15); NEUTROPHILS PERCENT AUTO 74 % (41-73); Platelet Count 196 K/mm3 (150-400); RDW Coefficient Variation 19.1 % (11.7-14.2); RDW Standard Deviation 67.5 fL (35.1-46.3); Red Blood Cell Count 3.34 M/mm3 (4.30-5.90); White Blood Cell Count 16.46 K/mm3 (4.00-11.30)
[2020-02-18 03:53] LABS: Albumin, Blood 2.8 g/dL (3.4-5.0); Anion Gap 5 mmol/L (6-16); Blood Urea Nitrogen 32 mg/dL (8-24); Bun/Creatinine Ratio 19.6 (12.0-20.0); CO2, Blood 25 mmol/L (21-32); Calcium, Blood 8.6 mg/dL (8.5-10.1); Chloride, Blood 112 mmol/L (98-108); Creatinine, Blood 1.63 mg/dL (0.60-1.20); Glomerular Filtration Rate 43 (60-); Glucose, Blood 144 mg/dL (70-99); Magnesium, Blood 2.1 mg/dL (1.6-2.4); Phosphorus, Blood 2.5 mg/dL (2.5-4.9); Potassium, Blood 4.2 mmol/L (3.5-5.5); Sodium, Blood 142 mmol/L (136-145)
--- NOTE | 2020-02-18 04:19 | NUR ---
NEW UROSTOMY BAG PLACED ON PT. SPECIMEN COLLECTED FROM CLEAN BAG AND SENT TO LAB.
[2020-02-18 04:29] LABS: Source, Urine Urostomy Bag
[2020-02-18 05:04] LABS: Appearance, Urine Hazy (Clear); Bilirubin, Urine Neg (Neg); Blood, Urine 5+ (Neg); Color, Urine Yellow (P-Yellow); Glucose Qualitative, Urine Neg (Neg); Ketones, Urine Neg (Neg); Leukocyte Esterase, Urine 1+ (Neg); Nitrite, Urine Neg (Neg); Protein, Urine 3+ (Neg); Specific Gravity, Urine 1.015 (1.003-1.022); Urobilinogen, Urine NORM (Normal)
[2020-02-18 05:20] LABS: Red Blood Cells, Urine 25-50 /hpf (0-2)
[2020-02-18 05:21] LABS: Squamous Epithelial Cells Not Seen /hpf (Few)
[2020-02-18 05:22] LABS: Bacteria Mod /hpf
--- NOTE | 2020-02-18 06:17 | NUR ---
SHIFT SUMMARY PT WITH INCREASED OXYGEN NEEDS THIS SHIFT, PT PLACED ON V60 CPAP 10 FIO2 70% TOLERATED WELL FOR MOST OF NIGHT. PT TRANSFERRED TO 15L PER OXYMIZER FOR BREAK FROM CPAP, O2 SATURATIONS 90-92% FOR APPROX 1.5 HOURS AND THEN STARTED DESATURATIING TO 82-86%, PT THEN REPORTED 3/10 CP, PT TRANSFERED BACK TO CPAP 10 FIO2 100% WITH SLOW RECOVER TO SATURATIONS>90%, NITRO GTT INCREASED TO 20. HEMOPTYSIS FROM BEGINNING OF SHIFT . NO CHANGES TO HEPARIN INFUSION THIS SHIFT. R RADIAL SITE STABLE WITH OPSITE OVER INSERTION SITE. PT TOLERATING PO INTAKE AND SWALLOWS PILLS WHOLE WITH WATER. URINE SPECIMENT FROM UROSTOMY SENT TO LAB, SEE CHART FOR RESULTS. PT VERY PLEASANT AND COOPERATIVE T/O NIGHT, ENJOYS REFLECTING ON HIS LIFE AND TALKING ABOUT HOW HE AND HIS MET.
--- NOTE | 2020-02-18 07:15 | NUR ---
REC'D BEDSIDE REPORT FROM NATE ZAMUDIO AND AM NOW ASSUMING CARE OF THIS PT.
--- NOTE | 2020-02-18 09:27 | NUR ---
DR BROWNLEE AT THE BEDSIDE TO ASSESS PT. UPDATED WITH PT'S CURRENT STATUS. NEW ORDER FOR METOPROLOL AND DISCUSSED POTENTIALLY STARTING SOME DIURETICS. SEE NEW ORDERS.
--- NOTE | 2020-02-18 10:36 | NUR ---
RETURNED DR LAST OFFICE CALL RE: THIS PT. DR LAST CONCERNED THAT PT'S WOUND VAC IS NOT IN PLACE. ASKED OFFICE STAFF IF DR LAST WOULD BE WILLING TO PRINTING MACHINE MECHANIC PT'S CASE AND DO A CONSULT AND FOLLOW IN THE HOSPITAL. DR ALST AGREEABLE TO TAKE ON PT'S CASE AND WILL SEE THIS AFTERNOON/EVENING.
--- NOTE | 2020-02-18 17:03 | NUR ---
Initial spiritual care note: Mr. Shen appears quite weak and very tired. He said little to me, but smiled weakly at me. I spoke to spouse at bedside and provided assurance of care. Encouraged self-care and rest. Pt and family are active in their Jainism yvrose. Father Bairon will be providing their spiritual needs throughout hospitalization. I will remain available for mental health counselor/encouragement. Spouse reports hope that pt will return to baseline.
--- NOTE | 2020-02-18 17:20 | NUR ---
DR BROWNLEE IN TO REASSESS PT AND DIURETIC EFFECT OF LASIX. WILL KEEP PT IN ICU OVERNIGHT.
--- NOTE | 2020-02-18 17:25 | NUR ---
CALLED DR BANDA TO INFORM HIM THAT PT'S IS AT THE BEDSIDE. HE WANTED TO SPEAK WITH HER ABOUT PT'S TX OPTIONS.
--- NOTE | 2020-02-18 19:00 | NUR ---
SHIFT SUMMARY: PT SOMEWHAT DROWSY T/O, BUT AWAKENS EASILY TO VERBAL STIMULI. ALERT AND ORIENTED TO SELF/FAMILY/SITUATION/FOLLOWS DIRECTIONS. ANSWERS QUESTIONS SLOWLY BUT APPROPRIATELY. LA JOLLA AND WEARS BILATERAL HEARING AIDS. PT ABLE TO MINIMALLY ASSIST WITH TURNS IN THE BED. PT'S REPORTS HIS MOBILITY HAS RAPIDLY DECLINED SINCE HIS RT GREAT TOE AMPUTATION. LUNGS ARE CLEAR IN THE UPPER LOBES, DIMINISHED IN BILATERAL BASES/RML WITH CRACKLES HEARD IN THE RT BASES. PT HAD A LONG BREAK FROM CPAP THIS AM. SP02 92-94% ON 15L O2 PER OXYMIZER, THEN PT HAS REMAINED ON CPAP FOR MOST OF THE REMAINDER OF THE SHIFT. PT WAS TAKEN OFF CPAP FOR A SHORT BREAK TO DO ORAL CARE, WHICH PT FOUND TO HAVE BLOODY CONTENT IN ORAL CAVITY. PT STARTED COUGHING UP LARGE AMTS OF THICK, BLOODY SECREATIONS IMMEDIATLY AFTER BEING TAKEN OFF CPAP, TO WHICH SP02 DECREASED TO MID 60% RANGE AND PT DID NOT RECOVER. PT QUICKLY PLACED BACK ON CPAP AND HAS REMAINED ON THIS FOR THE REST OF THIS SHIFT. PT APPEARS VERY COMFORTABLE WITH NO NOTED RESP DISTRESS WHILE ON CPAP AND ABLE TO WEAN FI02 FROM 100% TYO 65% TODAY WITH SP02 90-92%. HR REGULAR, SR-70'S RANGE. ABLE TO WEAN PT OFF TITRATED NTG THIS SHIFT AND PT STARTED ON IMDUR. ALSO ADDED METROLOL AND NORVASC THIS SHIFT. HEPARIN GTT CONT AT 14 UNITS/KG/HR PER PHARMACY. ABD ROUND/SOFT/NON-TENDER WITH ACTIVE BT'S X 4. PT ONLY ABLE TO CONSUME BREAKFAST AND WAS REQUIRING CPAP AT LUNCH AND DECLINED DINNER. PT DRAINING CLEAR, YELLOW COLORED URINE PER UROSTOMY. ADDED OVERNIGHT BAG WITH CONVERSION VALVE THIS SHIFT. PT GIVEN LASIX 40MG IVP FOR SUSPECTED FLUID OVERLOAD. -DNR STATUS -CBG'S AC/HS, NO COVERAGE NEEDED THIS SHIFT -MONITOR FOR CHEST PAIN. TX PER ORDERS
--- NOTE | 2020-02-18 19:30 | NUR ---
ASSESSMENT PT RESTING QUIELTY WITH CPAP ON. REMOVED CPAP FOR ORAL CARE. PT DENIES PAIN OR DISCOMFORT. LUNGS CLEAR BUT DECREASED IN THE BASES. PT ON 15 LITERS OXMIZER FOR ORAL CARE AND MEDS. SPO2 DOWN TO 87% AFTER ORAL CARE PLACED BACK ON CPAP 10 FIO2 65%. HEART RATE REGULAR. BP STABLE. BT+ ABD SOFT AND NONTENDER. DENIES N/V. UROSTOMY TO RIGHT ABD DRAINING CLEAR YELLOW URINE. 1+ EDEMA TO BILAT LOWER EXT. PT REPOSITONED TO BACK WITH HOB UP.
--- NOTE | 2020-02-18 19:37 | NUR ---
REPORTED OFF TO NATE ESPINAL WHOM IS ASSUMING ARE OF THIS PT. PT GIVEN 1900 NORVASC AND IMDUR. HOWEVER, PT DID NOT TOLERATE BEING OFF CPAP FOR MORE THAN 5 MINUTES SPO2 DECREAED TO 84-88% RNGE ON 15 L PER OXYMIZER.
--- NOTE | 2020-02-18 22:00 | NUR ---
UROSTOMY UROSTOMY LEAKING AROUND APPLIANCE. OLD APPLIANCE REMOVED. SKIN CLEANED AND DRIED. NEW APPLIANCE APPLIED WITH SKIN PREP. STOMA BRIGHT RED AND MOIST. PT TOLERATED WELL. REPOSITIONED PT AFTER LINEN CHANGED. PT HAD A SNACK OF ICE CREAM ATE 100%. CPAP REAPPLIED AFTER SNACK AND REPOSITIONING.
--- NOTE | 2020-02-19 02:37 | NUR ---
CPAP/SPUTUM PT TOOK OFF CPAP AND COUGHED UP LARGE AMT BLOODY SPUTUM. CONFUSED AT FIRST REGARDING WHERE HE IS. REORIENTED TO PLACE AND WHAT IS GOING ON. GOWN CHANGED AND ORAL CARE DONE. CPAP BACK ON.
--- NOTE | 2020-02-19 03:20 | NUR ---
CONFUSION PT PULLED OFF CPAP STATES,"I DON'T BELIEVE I'M AT THE HOSPITAL". TRIED TO REORIENT PT. PT STATED,"I DON'T BELIEVE YOU. I'M IN SOME ALTERNATE PLACE BUT NOT AT [facility]". PT PLACE ON 15 LITERS VIA OXMIZER. PT STATES,"I'M NOT GOING TO USE THAT MACHINE ANYMORE IT IS NOT HELPING. IT IS CAUSING ME TO HAVE O2 INTOXACATION". PT PULLING ON O2 STATING,"I'M NOT GOING TO USE THAT. I'M NO AT THE HOSPITAL. I WANT TO SEE THE POLICE".
--- NOTE | 2020-02-19 03:40 | NUR ---
PAIN PT STARTED C/O CHEST PAIN 10/30, SPO2 DOWN TO 57% ON ROOMAIR. PT CONT TO NOT BELIEVE STAFF ABOUT BEING IN THE HOSPITAL. PT FINALLY AGREED TO USE CPAP. RT PLACED PT BACK ON CPAP AT 100%. PT MED WITH MORPHINE FOR CHEST PAIN. PT NOW RESTING QUIELTY WITH CPAP ON
--- NOTE | 2020-02-19 03:55 | NUR ---
SLEEPING PT NOW SLEEPING WITH CPAP ON.
--- NOTE | 2020-02-19 06:24 | NUR ---
SHIFT SUMMARY PT RESTING QUIETLY AT THIS TIME WITH CPAP ON. COUPLE OF TIMES PT HAS HAD CONFUSION DURING THE NIGHT. NO FOLLOWING INSTUCTIONS. PT MED WITH MORPHINE ONCE FOR C/O CHEST PAIN AFTER PT TOOK OFF HIS CPAP AND REFUSED O2. AFTER CPAP BACK ON AND MORPHINE GIVEN C/P RESOLVED. VSS. PT TURNED Q2HRS. UROSTOMY APPLIANCE CHANGED DURING THE NIGHT DUE TO LEAKING. REPORT TO ON COMING NURSE.
--- NOTE | 2020-02-19 07:29 | NUR ---
REC'D REPORT FROM NATE ESPINAL AND AM NOW ASSUMING CARE OF THIS PT. PT IS VERY CONFUSED. PULLED OF CPAP MASK. PT ABLE TO STATE HE WAS AT [facility], HOWEVER, UNABLE TO REASON WITH PT AND PT NOT UNDERSTANDING THAT HE NEEDS EITHER CPAP OR 02 ON TO MAINTAIN 02 LEVELS. SP02 LEVELS QUICKLY DROPPED TO THE MID 60% RANGE AND PT WOULD NOT ALLOW ANY NURSING STAFF TO PLACE O2. PT PLACED IN BILATERAL SOFT WRIST RESTRAINTS AND EXPLAINED TO PT WHY. HIS WAS INFORMED OF BEHAVIOR AND POTENTIAL NEED FOR RESTRAINTS JUST PRIOR TO PLACING. SHE WAS AGREEABLE TO THIS. CALLED DR SHORE TO INFORM HER OR PT'S NEUROLOGICAL CHANGE. LABS/CXR PENDING.
[2020-02-19 08:26] LABS: BASOPHILS ABSOLUTE AUTO 0.03 K/mm3 (0.00-0.23); BASOPHILS PERCENT AUTO 0 % (0-2); EOSINOPHILS ABSOLUTE AUTO 0.01 K/mm3 (0.00-0.68); EOSINOPHILS PERCENT AUTO 0 % (0-6); Hematocrit 29.5 % (37.0-53.0); Hemoglobin 9.4 g/dL (13.5-17.5); IMMATURE GRAN ABSOLUTE AUTO 0.13 K/mm3 (0.00-0.10); IMMATURE GRAN PERCENT AUTO 1 % (0-1); LYMPHOCYTES ABSOLUTE AUTO 2.81 K/mm3 (0.84-5.20); LYMPHOCYTES PERCENT AUTO 24 % (21-46); MONOCYTES ABSOLUTE AUTO 1.05 K/mm3 (0.16-1.47); MONOCYTES PERCENT AUTO 9 % (4-13); Mean Corpuscular HGB 30.3 pg (26.0-34.0); Mean Corpuscular HGB Conc 31.9 g/dL (31.5-36.5); Mean Corpuscular Volume 95 fL (80-100); Mean Platelet Volume 9.5 fL (9.1-12.4); NEUTROPHILS ABSOLUTE AUTO 7.61 K/mm3 (1.96-9.15); NEUTROPHILS PERCENT AUTO 65 % (41-73); Platelet Count 213 K/mm3 (150-400); RDW Coefficient Variation 18.6 % (11.7-14.2); RDW Standard Deviation 64.5 fL (35.1-46.3); White Blood Cell Count 11.64 K/mm3 (4.00-11.30)
--- NOTE | 2020-02-19 08:39 | NUR ---
DR SHORE IN TO ASSESS PT. UPDATED ON HYPOGLYCEMIA. RECHECK WAS 97 AFTER 1/2 AMP OF D50% GIVEN. PT REPORTS HE IS HUNGRY, HOWEVER, PT UNABLE TO TOLERATE BEING OFF OF CPAP AT THIS TIME. SETTINGS REMAIN CPAP 10/100% WITH SP02 LOW 90% RANGE.
[2020-02-19 08:50] LABS: Albumin, Blood 2.6 g/dL (3.4-5.0); Albumin/Globulin Ratio 0.8 (0.8-1.8); Bilirubin, Total 1.1 mg/dL (0.1-1.0); Bun/Creatinine Ratio 23.1 (12.0-20.0); Creatinine, Blood 1.47 mg/dL (0.60-1.20); Globulin, Blood 3.1 g/dL (2.2-4.0); Magnesium, Blood 2.4 mg/dL (1.6-2.4); Potassium, Blood 3.7 mmol/L (3.5-5.5); Total Protein, Blood 5.7 g/dL (6.4-8.2)
--- NOTE | 2020-02-19 09:40 | NUR ---
CALLED AND SPOKE WITH DR MOORE RE: PT HAVING CHEST PAIN. CONSIDERING PT IS CPAP DEPENDENT AT THIS TIME, PT UNABLE TO TAKE AM IMDUR. WILL RESTART NTG GTT PER CARDIO. WILL REFER ALL FURTHER QUESTIONS TO DR BROWNLEE, WHOM IS ALSO FOLLOWING PT.
--- NOTE | 2020-02-19 10:15 | NUR ---
CALLED PALLATIVE CARE RN TO READDRESS CODE STATUS W/ PT, HE HAS SAID 2 TIMES THIS AM THAT HE DOES NOT WANT TO BE A DNR. NATE RODRIGUEZ AT THE [facility] TO ADDRESS PT'S CONCERN.
--- NOTE | 2020-02-19 10:39 | NUR ---
PT UPDATE: PT STARTED ON NTG GTT AT 20MCG/MIN IV. SHARP/SUBSTERNAL CHEST PAIN DECREASED FROM 6/10 TO 3/10. PT DENIES ANY NAUSEA/PAIN RADIATION.
--- NOTE | 2020-02-19 11:01 | NUR ---
CALLED DR SHORE: SPOKE WITH DR MARROQUIN: BLOOD SUGARS NOT MAINTAINING WHILE ON CPAP. CBG WENT FROM 97 TO 78 ON EARLY LUNCH CHECK. SEE NEW ORDERS FOR D5 IVF'S.
--- NOTE | 2020-02-19 12:28 | NUR ---
DR BROWNLEE IN TO ASSESS PT. UPDATED WITH PT'S STATUS. DISCUSSED RESTARTING NTG GTT. WILL CONTINUE ON THIS GTT FOR NOW AND CONT TO WATCH FLUID BALANCE AND KIDNEY FUNCTION IN HOPES TO TAKE PT BACK TO TOLL TEST DESK WORKER OR TUESDAY PER DR MOORE.
--- NOTE | 2020-02-19 15:03 | NUR ---
called to meet with patient and . pt very anxious and stated he had anightmare theat the room was crubling in on him and he was feafull. reassurance and carful listening. Review with his icu delirium and stress. opened blinds and had him look outside. He wanted to talk about recusitation and levels of care very anxious to settle the discussion. Slow careful conversation facilitaed him expressing his frears and needs. We reviewed CPR and life support. we reviewed advance directives and levels of care depending on dieseas process or event. pt does not want recussitation if he has a large stroke . He would want treatment for a cardiac event and a chance on the vent. If no reponse his felt she could make the decision to withdraw care. the had alphonse loving conversation that reduced some stress. nahum completed. will follow up for suppot.
--- NOTE | 2020-02-19 15:34 | NUR ---
Pt.is in bed resting prayed for him
--- NOTE | 2020-02-19 15:52 | NUR ---
DR LAST IN TO SEE PT. DISCUSSED IF PT NEEDED WOUND VAC. PLAN TO DO FOAM DRESSING, EXUDATE AT THIS TIME IS MINIMAL AND CHANGE EVERY 2-3 DAYS/PRN.
--- NOTE | 2020-02-19 18:39 | NUR ---
SHIFT SUMMARY: PT WITH MUCH IMPROVEMNT T/O SHIFT. PT INITIALLY CONFUSED AND COMBATIVE THIS AM AND REQUIRED PT BEING IN RESTAINTS R/T PT PULLING OFF CPAP AND OXYMIZER. PT IS NOW ALERT AND ORIENTED. COOPERATIVE WITH CARE. ANSWERS QUESTIONS AND FOLLOWS DIRECTIONS SLOWLY BUT APPROPRIATLEY. ASSIST WITH TURNS IN BED. LUNGS ARE DIMINISHED T/O BILATERALLY. PT INITIALLY REQUIRING CPAP 10/ [id number]% T/O MOST OF MORNING. PT PLACED ON 15L 02 VIA OXYMIZER FOR A SHORT TIME, THEN ABLE TO WEAN O2 DOWN TO 7L, UNTIL PT BECAME FATIGUED THIS EVENING AND NEEDED TO BE PLACED BACK ON CPAP- 10/FI02-35%, WITH SP02 LOW 90% RANGE. HR REGULAR, SR-70'S. PT STILL PENDING GOING BACK TO HUMANITIES COORDINATOR ONCE KINEYS IMPROVEME MORE TO PLACE STENT. CONTINUE TO FOLLOW LABS. ABD SOFT ROUND/NON-TENDER. PT WITH POOR/FAIR APPETITE. PT DID HAVE A LOW CBG DURING TIME OF CONFUSION THAT REQUIRED 1/2 AMP OF D50% TO BE GIVEN WHILE ON CPAP AND NPO. PT IS NOW MAINTAINING CBG'S HE IS EATING THIS EVENING. PT DIURESED WELL WITH LASIX IVP THROUGH UROSTOMY IN RT LOWER QUAD WITH 2300ML OUT OF CLEAR, YELLOW URINE. DR LAST IN TO ASSESS PT AND REPORTS A FOAM DRSG IS FINE DRAINAGE IS MINIMAL. RT FOOT CLEANSED AND FOAM DRSG APPLIED AND PT MCKINLEY HAS F/U APPT MADE TO F/U WITH DR LAST IN THE OFFICE POST DISCHARGE. PT/ SPOKE WITH PALLATIVE CARE AND CHANGED FROM DNR TO FULL CODE. POLST FORM ON CHART AND AWAITING DR'S SIGNATURE.
--- NOTE | 2020-02-19 19:26 | NUR ---
REPORTED OFF TO RAUL/NATE HARVEY AND IS ASSUMING CARE OF THIS PT.
--- NOTE | 2020-02-19 19:40 | NUR ---
SHIFT ASSESSMENT REPORT RECV'D FROM NATE PUENTES. PT A&0X3. APPEARS TO BE COMFORTABLE IN BED. ON CPAP c O2 SATS >94%. NO C/O CHEST PAIN. LS CLEAR, DIMINISHED LOWERS. UROSTOMY IN PLACE, DRAINING CLEAR, YELLOW URINE. BILATERAL LE PITTING EDEMA 3+. WILL CONTINUE TO MONITOR PTS TOLERANCE TO CPAP.
[2020-02-20 03:47] LABS: BASOPHILS ABSOLUTE AUTO 0.03 K/mm3 (0.00-0.23); BASOPHILS PERCENT AUTO 0 % (0-2); EOSINOPHILS ABSOLUTE AUTO 0.04 K/mm3 (0.00-0.68); EOSINOPHILS PERCENT AUTO 0 % (0-6); Hematocrit 27.9 % (37.0-53.0); Hemoglobin 9.1 g/dL (13.5-17.5); IMMATURE GRAN ABSOLUTE AUTO 0.16 K/mm3 (0.00-0.10); IMMATURE GRAN PERCENT AUTO 2 % (0-1); LYMPHOCYTES PERCENT AUTO 31 % (21-46); MONOCYTES ABSOLUTE AUTO 0.94 K/mm3 (0.16-1.47); MONOCYTES PERCENT AUTO 10 % (4-13); Mean Corpuscular HGB 30.6 pg (26.0-34.0); Mean Corpuscular HGB Conc 32.6 g/dL (31.5-36.5); Mean Corpuscular Volume 94 fL (80-100); Mean Platelet Volume 9.5 fL (9.1-12.4); NEUTROPHILS ABSOLUTE AUTO 5.28 K/mm3 (1.96-9.15); NEUTROPHILS PERCENT AUTO 57 % (41-73); NRBC ABSOLUTE 0.02 K/mm3 (0.00-0.02); NRBC Auto 0.2 /100 WBC (0.0-0.2); Platelet Count 223 K/mm3 (150-400); RDW Coefficient Variation 17.9 % (11.7-14.2); RDW Standard Deviation 62.2 fL (35.1-46.3); Red Blood Cell Count 2.97 M/mm3 (4.30-5.90); White Blood Cell Count 9.35 K/mm3 (4.00-11.30)
[2020-02-20 04:07] LABS: Albumin, Blood 2.5 g/dL (3.4-5.0); Albumin/Globulin Ratio 0.8 (0.8-1.8); Bilirubin, Total 1.1 mg/dL (0.1-1.0); Bun/Creatinine Ratio 20.8 (12.0-20.0); Calcium, Blood 8.4 mg/dL (8.5-10.1); Creatinine, Blood 1.3 mg/dL (0.60-1.20); Globulin, Blood 3.1 g/dL (2.2-4.0); Magnesium, Blood 2.1 mg/dL (1.6-2.4); Potassium, Blood 3.5 mmol/L (3.5-5.5); Total Protein, Blood 5.6 g/dL (6.4-8.2)
--- NOTE | 2020-02-20 06:34 | NUR ---
SHIFT SUMMARY PT A&OX3. NO NIGHTMARES OR BOUTS OF CONFUSION. LONG ACTING INSULIN WITHELD DUE TO THE PREVIOUS EVENINGS BORDERLINE HYPOGLYCEMIC EVENT WHICH MAY HAVE TRIGGERED THE CONFUSION. SLEPT INTERMITTENTLY T/O THE NIGHT. BREAKS FROM CPAP PROVIDED T/O THE NIGHT. OXYMIZER SUPPLEMENTED DURING BREAKS UNTIL O2 SATS WOULD DROP BELOW 90%, CORRESPONDING c PT FALLING BACK ASLEEP. PTS O2 SATS WOULD QUICKLY RECOVER ONCE CPAP PUT BACK ON. NO C/O CP T/O THE NIGHT/MORNING.
--- NOTE | 2020-02-20 07:30 | NUR ---
ASSUMED CARE BEDSIDE REPORT RECIEVED. PT IS LAYING IN BED AWAKE, ALERT, AND ORIENTED. PT FOLLOWING DIRECTIONS APPROPRIATELY. PT WITH PERIODS OF ANXIETY THAT PASS QUICKLY. PT DENIES CHEST PAIN OR SOB AT THIS TIME. PT ON 15L O2 VIA OXYMIZER. VITAL SIGNS STABLE. HEPARIN GTT INFUSING AT 15 UNITS/KG/HR. PT WITH UROSTOMY IN PLACE TO RIGHT ABDOMEN, DRAINING YELLOW URINE OUTPUT. SITE IS C/D/I. PT WITH FOAM DRESSING TO RIGHT GREAT TOE AMPUTATION SITE. SITE IS C/D/I. RIGHT RADIAL ACCESS SITE IS C/D/I WITH OPSITE AND ARMBOARD IN PLACE. WILL CONTINUE TO MONITOR.
--- NOTE | 2020-02-20 08:55 | NUR ---
DR VISITS DR SHORE AND DR JOHANSEN IN TO SEE PT THIS MORNING. NEW POLST SIGNED BY DR SHORE AND PLACED IN CHART. DR JOHNASEN PLANS TO TAKE PT BACK TO MANAGER TESTING TOMORROW OR TUESDAY IF PT REMAINS ASYMPTOMATIC. NO NEW ORDERS RECIEVED. WILL CONTINUE TO MONITOR.
--- NOTE | 2020-02-20 09:38 | NUR ---
pt affect bright today. He is more alert he expressed his stress over upcoming procedure. therputic conversation will continue supportive visits to pt and his . They are both anxious aout his tolerace of interventions due to his age.
--- NOTE | 2020-02-20 11:22 | NUR ---
Pt. is doing much better , offered prayers.
--- NOTE | 2020-02-20 17:14 | NUR ---
SHIFT SUMMARY NO ACUTE CHANGES. PT DID WELL TODAY. REMAINS ALERT, ORIENTED, AND PLEASANT. PT HAS DENIED CHEST PAIN OR SOB THROUGHOUT THE SHIFT. VITAL SIGNS REMAIN STABLE. O2 TITRATED DOWN TO 9L VIA OXYMIZER. PT TOLERATING PO DIET WELL. HEPARIN INFUSING AT 15 UNITS/KG/HR PER PHARMACY. UROSTOMY IN PLACE, APPLIANCE IS C/D/I. PT WITH EXCELLENT CLEAR YELLOW URINE OUTPUT THIS SHIFT. ARM BOARD REMAINS IN PLACE TO RIGHT RADIAL ACCESS SITE. PT SPOUSE HERE TO VISIT FOR PART OF THE DAY. WILL CONTINUE TO MONITOR AND REPORT OFF TO ONCOMING RN.
--- NOTE | 2020-02-20 20:57 | NUR ---
ASSUMPTION OF CARE PT RESTING IN BED, ON CPAP 10 FIO2 35%, TOLERATES BREAK ON 15L PER OXIMIZER. ORIENTED TO SELF, EVENT, DATE, LOCATION AND FOLLOWING DIRECTIONS. MAKING CONVERSATION WITH STAFF ABOUT LIFE, CURRENT EVENT, AND FAMILY. PT IS CALM, PLEASANT AND COOPERATIVE. MONITOR SHOWS SINUS RHYTHM WITH HR 70'S, BP STABLE. DENIES CP AT THIS TIME. HEPARIN GTT INF, SEE FLOWSHEET FOR RATES AND TITRATIONS. PT TOLERATES PO INTAKE, SWALLOWS PILLS WHOLE WITH WATER. UROSTOMY TO RLQ, DRAINING TO URINE COLLECTION BAG, SKIN AROUND SITE C/D/I. R GREAT TOE AMPUTATION, MEPILEX IN PLACE, SCABS TO R LATERAL FOOT OPEN TO AIR. PT MOVES ALL EXTREMETIES INDEPENDENTLY. CALL LIGHT WITHIN REACH, PT CURRENTLY RESTING COMFORTABLY WATCHING TELEVISION.
--- NOTE | 2020-02-20 23:17 | NUR ---
PT RESTING IN BED, CPAP PLACED FOR SLEEPING, PT TOLERATING WELL. MILD CONFUSION NOTED, PT ASKS WHY HE'S WEARING THE CPAP AND STS HE THOUGHT WE WERE TAKING HIM OFF OF IT TO GIVE TO SOMEONE ELSE. ASSURED PT THERE ARE OTHER MACHINES AVAILABLE FOR PTS THAT NEED THEM AND ENCOURAGED PT TO WEAR CPAP T/O NIGHT FOR RESPIRATORY/CARDIAC SUPPORT. PT AGREEABLE.
--- NOTE | 2020-02-20 23:58 | NUR ---
PT HAVING DIFFICULTY FALLING ASLEEP, CALL PLACED TO DR KIMBROUGH, NEW ONE TIME ORDER FOR 5MG MELATONIN PO.
--- NOTE | 2020-02-21 03:06 | NUR ---
TO PTS ROOM AFTER PT REMOVED PULSE OXIMETER, PT HAD REMOVED CPAP, SOMEWHAT AGITATED, CONFUSED STATED HE WAS IN A BASEMENT, ATTEMPTED TO REORIENT PT TO PLACE, PT STS "I CAN'T BE IN A HOSPITAL, IT'S FILTHY HERE!" CBG RESULT 107. PT BEGAN REPORTED CP, 12/30, REFUSING CPAP AND OXIMIZER. 2mg MORPHINE ADMINISTERED FOR CP, PT THEN AGREEABLE TO CPAP. PT CURRENTLY RESTING WITH CPAP IN PLACE.
--- NOTE | 2020-02-21 03:11 | NUR ---
PT REMOVING CPAP, ASKS "WHY ARE YOU DOING THIS TO ME?" ATTEMPTED TO ASSURE PT THE CPAP/OXIMIZER IS TO HELP, PT STS HE WOULD LIKE TO SPEAK TO A WELDER TACK. ENOURAGED PT TO WEAR CPAP TO HELP HIS HEART, PT AGREES TO PUT CPAP IN PLACE.
--- NOTE | 2020-02-21 03:34 | NUR ---
PT WITH INCREASED AGITATION, REMOVING CPAP, VERY CONFUSED, NOT REDIRECTABLE. PT BECAME VERY AGITATED WITH LAB DRAW, SWUNG LEGS OVER EDGE OF BED, YELLING AT STAFF, PULLING ARM AWAY WITH BUTTERFLY NEEDLE STILL IN ARM. CALL PLACED TO DR KEITA, ORDER FOR STAT VBG AND BILAT SOFT WRIST RESTRAINTS. PT REFUSING CPAP, STS WE ARE TRYING TO KILL HIM. PLACED PT ON 15L PER OXYMIZER.
[2020-02-21 03:47] LABS: Base Excess Venous 3.1 mmol/L; Bicarbonate Venous 26.3 mmol/L (24.0-30.0); PCO2 Venous 51.4 mmHg (38-42); PO2 Venous 54.8 mmHg (38-42); pH Blood Venous 7.36 (7.34-7.37)
[2020-02-21 04:03] LABS: BASOPHILS ABSOLUTE AUTO 0.05 K/mm3 (0.00-0.23); BASOPHILS PERCENT AUTO 1 % (0-2); EOSINOPHILS ABSOLUTE AUTO 0.12 K/mm3 (0.00-0.68); EOSINOPHILS PERCENT AUTO 1 % (0-6); Hemoglobin 10.4 g/dL (13.5-17.5); IMMATURE GRAN ABSOLUTE AUTO 0.28 K/mm3 (0.00-0.10); IMMATURE GRAN PERCENT AUTO 3 % (0-1); LYMPHOCYTES ABSOLUTE AUTO 4.08 K/mm3 (0.84-5.20); LYMPHOCYTES PERCENT AUTO 39 % (21-46); MONOCYTES ABSOLUTE AUTO 1.07 K/mm3 (0.16-1.47); MONOCYTES PERCENT AUTO 10 % (4-13); Mean Corpuscular HGB 30.5 pg (26.0-34.0); Mean Corpuscular HGB Conc 32.5 g/dL (31.5-36.5); Mean Corpuscular Volume 94 fL (80-100); Mean Platelet Volume 9.5 fL (9.1-12.4); NEUTROPHILS ABSOLUTE AUTO 4.96 K/mm3 (1.96-9.15); NEUTROPHILS PERCENT AUTO 47 % (41-73); Platelet Count 267 K/mm3 (150-400); RDW Coefficient Variation 17.6 % (11.7-14.2); RDW Standard Deviation 60.9 fL (35.1-46.3); Red Blood Cell Count 3.41 M/mm3 (4.30-5.90); White Blood Cell Count 10.56 K/mm3 (4.00-11.30)
--- NOTE | 2020-02-21 04:20 | NUR ---
VBG RESULTS DISCUSSED WITH DR KEITA, ORDER FOR REPEAT VBG @ 0700 AND OKAY TO LEAVE PT ON 15L PER OXYMIZER. MORPHINE DC'D R/T KIDNEY FUNCTION AND NEW ORDER FOR FENTANYL PRN.
[2020-02-21 04:29] LABS: Alanine Aminotransfer (ALT/SGP 33 U/L (12-78); Albumin, Blood 2.9 g/dL (3.4-5.0); Albumin/Globulin Ratio 0.8 (0.8-1.8); Alk Phos 113 U/L (50-136); Anion Gap 8 mmol/L (6-16); Aspartate Aminotrans (AST/SGOT 38 U/L (12-37); Bilirubin, Total 1.2 mg/dL (0.1-1.0); Blood Urea Nitrogen 23 mg/dL (8-24); Bun/Creatinine Ratio 19.7 (12.0-20.0); CO2, Blood 28 mmol/L (21-32); Calcium, Blood 9.1 mg/dL (8.5-10.1); Chloride, Blood 106 mmol/L (98-108); Creatinine, Blood 1.17 mg/dL (0.60-1.20); Globulin, Blood 3.5 g/dL (2.2-4.0); Glomerular Filtration Rate >60 (60-); Glucose, Blood 115 mg/dL (70-99); Potassium, Blood 3.7 mmol/L (3.5-5.5); Sodium, Blood 142 mmol/L (136-145); Total Protein, Blood 6.4 g/dL (6.4-8.2)
--- NOTE | 2020-02-21 04:40 | NUR ---
PT YELLING "HELP" FROM BED, TO PTS ROOM AND PT REPORTS CP, OXYMIZER NOT IN PLACE, O2 SATURATIONS DECREASING TO 80'S. PT CONTINUES TO YELL "HELP! HELP!" ATTEMPTED TO REPLACE OXYMIZER WHEN PT GRABBED MY SCRUB TOP, ASSISTANCE CALLED TO ROOM, OXYMIZER PLACED, RESTRAINTS CHECKED AND REMAIN IN PLACE.
--- NOTE | 2020-02-21 06:25 | NUR ---
SHIFT SUMMARY PT CONTINUES TO BE VERY AGITATED, STS STAFF ARE TRYING TO KILL HIM, STS HE WANTS TO SPEAK TO A HOSPITAL DIRECTOR TRANSLATIONAL, IS ORIENTED TO DATE, BUT DOES NOT DISCUSSING WITH SPOUSE AND DOCTOR PLAN TO GO TO PRINCIPAL HARDWARE ARCHITECT TODAY. PT STS HE WANTS TO CALL HIS . CALLED @ APPROX 0540 AND UPDATED ON PTS STATUS, SHE PLANS TO COME TO HOSPITAL SOON POSSIBLE. HEPARIN REMAINS INFUSING. BILAT SOFT WRIST RESTRAINTS IN PLACE. CALL LIGHT WITHIN REACH.
--- NOTE | 2020-02-21 06:52 | NUR ---
SPOUSE TO ROOM
--- NOTE | 2020-02-21 07:47 | NUR ---
ASSUMED CARE BEDSIDE REPORT RECIEVED. PT IS AWAKE, ALERT, AND ORIENTED UPON ENTERING THE ROOM. PT SPOUSE AT BEDSIDE. PT DOES NOT REMEMBER EVENTS FROM NOC SHIFT WHEN ASKED ABOUT HOW THE NIGHT WENT. PT IN RESTRAINTS UPON ENTERING ROOM, RESTRAINTS REMOVED AT 0710. VITAL SIGNS STABLE. PT ON 10L VIA OXYMIZER. HEPARIN GTT INFUSING AT 15 UNITS/KG/HR. UROSTOMY IN PLACE TO RIGHT ABDOMEN, DRAINAGE BAG C/D/I, DRAINING YELLOW URINE OUTPUT. WOUND TO RIGHT GREAT TOE WITH DRESSING C/D/I. ANESTHESIA IN ROOM, PT TAKEN TO GIN POLE OPERATOR AT THIS TIME.
[2020-02-21 07:59] LABS: Base Excess Venous 3.7 mmol/L; PCO2 Venous 47.1 mmHg (38-42); pH Blood Venous 7.39 (7.34-7.37)
--- NOTE | 2020-02-21 10:30 | NUR ---
RETURN FROM SCHOOL BUS DRIVER/TEACHER ASSISTANT PT RETURNED FROM SCHOOL BUS DRIVER/TEACHER ASSISTANT AT 1015. PT IS AWAKE, ALERT, ORIENTED, BUT DROWSEY. PT DENIES ANY PAIN OR DISCOMFORT. VITAL SIGNS STABLE. PT WITH ARTERIAL SHEATH IN PLACE TO RIGHT FEMORAL SITE. DRESSING AND SHEATH C/D/I. NO BRUISING OR HEMATOM NOTED. RIGHT LOWER EXTREMITY IS PINK AND WARM. CALLED DR JOHANSEN TO CLARIFY ORDERS. PT SPOUSE AT BEDSIDE. WILL CONTINUE TO MONITOR. PLAN TO PULL SHEATH WHEN PTT BELOW 40.
--- NOTE | 2020-02-21 13:48 | NUR ---
AGITATION PT WITH INCREASING AGITATION AND CONFUSION. PT TAKING OXYGEN OFF AND STATES "I CANT BREATHE AND YOU GUYS ARE TRYING TO SUFFOCATE ME, THERE IS NO OXYGEN IN THIS PLACE." ATTEMPTED TO REORIENT PT. WITH REASURANCE AND COACHING PT IS AGREEABLE TO TRY CPAP. VITAL SIGNS STABLE. PT PLACED ON CPAP AT THIS TIME. PT CONTINUES TO PULL AT CPAP/LINES. PT REMAINS SUPINE, SHEATH TO RIGHT GROIN REMAINS IN PLACE AND IS C/D/I. PT SPOUSE NOT AT BEDSIDE AT THIS TIME. PT MED PER EMAR FOR PAIN. PT STATES HIP PAIN. WILL CONTINUE TO MONITOR.
--- NOTE | 2020-02-21 18:16 | NUR ---
SHIFT SUMMARY PT HAS CONTINUED TO HAVE LABILE MOODS AND BEHAVIOR TODAY. PT WITH ALTERNATING EPISODES OF BEING ALERT, ORIENTED, AND PLEASANT, THEN EPISODES OF CONFUSION, AGITATION, AND RESTLESSNESS. WHEN PT IS CONFUSED, PT IS NOT REDIRECTABLE OR ABLE TO BE REORIENTED. VITAL SIGNS STABLE. PT STARTED THE DAY ON 10L OXYMIZER, AND HAS BEEN ABLE TO BE TITRATED TO ROOM AIR AFTER COMING BACK FROM THE SMELTER OPERATOR. PT SPOUSE IN AND OUT THROUGHOUT THE DAY. PT WITH RIGHT FEMORAL ACCESS SITE, SHEATH PULLED AT 1642. SITE IS SOFT, NONTENDER, NO HEMATOMA. PT WITH IV'S SALINE LOCKED. UROSOTOMY APPLIANCE TO RIGHT ABD C/D/I WITH GOOD URINE OUTPUT THIS SHIFT. WOUND TO RIGHT GREAT TOE REMAINS UNCHANGED WITH DRESSING C/D/I. PT COMPLAINS OF CHEST PAIN DURING PERIODS OF AGITATION AND CONFUSION, PT MED PER EMAR. WILL CONTINUE TO MONITOR AND REPORT OFF TO ONCOMING RN.
--- NOTE | 2020-02-21 20:00 | NUR ---
ASSUMED CARE OF PT AT 1915. REPORT RECEIVED. PT PRESENTS IN BED. SOMEWHAT CONFUSED. DOES FOLLOW COMMANDS AND ASKS APPROPRIATE QUESTIONS. NEEDS TO BE REMINDED OF RESTRICTIONS POST SHEATH REMOVAL. RIGHT GROIN SITE CHECKED. NO HEMATOMA. DOES HAVE SOME SUPERIOR TENDERNESS. NO OOZING TO NOTE. WILL REVIEW CHART AND PLAN OF CARE FOR THIS PT.
--- NOTE | 2020-02-21 21:13 | NUR ---
PT MEDICATED WITH SEROQUEL AND WITH TYLENOL WITH HIS HS MEDICATIONS. PT STATES HE HAS INTERMITTENT CHEST PAINS POST PCI. AT THIS TIME, PT HAS HAD DECREASING PAIN. HAS SATURATIONS DROPS TO 88 PERCENT WHICH RETURNS WNL WITHIN SHORT PERIOD. PLACED O2 ON AT 2L/M TO PREVENT SUB 90 PERCENT SATURATIONS. PT NOTED TO PULL OXYGEN OFF WITHING MINUTES OF THIS RN LEAVING ROOM. PT EDUCATED ON RATIONALE FOR OXYGEN, AND THAT IT WOULD BE HIS CHOICE TO HAVE THIS. PT DOES THEN AGREES TO KEEP OXYGEN ON FOR THE TIME. WILL CONTINUE TO MONITOR PT. REORIENT PT NEEDED. POST SHEATH REMOVAL AT 6 HOURS WILL PROGRESS PT TO BE ABLE TO MOVE ABOUT IN BED ON HIS OWN. AT THIS TIME, CONTINUES WITHOUT HEMATOMA OR OOZING.
--- NOTE | 2020-02-21 23:33 | NUR ---
PT HAS COMPLETED HIS RESTRICTED SUPINE POSITION POST SHEATH REMOVAL. NO HEMATOMA OR OOZING AT SITE. TEACHING DONE WITH PT ON HIS ABILITY TO MOVE ABOUT IN BED. REMAINS WITH GOOD DISTAL CMS CHECKS. PT DOES NOT LEAVE HIS OXYMIZER ON, AND IS NOTED TO DESATURATION TO 85-89 PERCENT WITH RETURN TO ABOVE 90 PERCENT. HAVE OPTED TO CHANGE TO REGULAR NASAL CANNULA. OF CURRENT, PT IS KEEPING CANNULA IN PLACE. HAS NO COMPLAINTS OF PAIN AT THIS TIME. WILL CONTINUE TO MONITOR PT. BED ALARM IN USE FOR PT SAFETY.
[2020-02-22 03:56] LABS: BASOPHILS ABSOLUTE AUTO 0.04 K/mm3 (0.00-0.23); BASOPHILS PERCENT AUTO 0 % (0-2); EOSINOPHILS ABSOLUTE AUTO 0.06 K/mm3 (0.00-0.68); EOSINOPHILS PERCENT AUTO 1 % (0-6); Hematocrit 25.5 % (37.0-53.0); Hemoglobin 8.3 g/dL (13.5-17.5); IMMATURE GRAN ABSOLUTE AUTO 0.33 K/mm3 (0.00-0.10); IMMATURE GRAN PERCENT AUTO 3 % (0-1); LYMPHOCYTES ABSOLUTE AUTO 3.51 K/mm3 (0.84-5.20); LYMPHOCYTES PERCENT AUTO 28 % (21-46); MONOCYTES ABSOLUTE AUTO 1.21 K/mm3 (0.16-1.47); MONOCYTES PERCENT AUTO 10 % (4-13); Mean Corpuscular HGB 30.4 pg (26.0-34.0); Mean Corpuscular HGB Conc 32.5 g/dL (31.5-36.5); Mean Corpuscular Volume 93 fL (80-100); Mean Platelet Volume 9.7 fL (9.1-12.4); NEUTROPHILS ABSOLUTE AUTO 7.41 K/mm3 (1.96-9.15); NEUTROPHILS PERCENT AUTO 59 % (41-73); NRBC ABSOLUTE 0.04 K/mm3 (0.00-0.02); NRBC Auto 0.3 /100 WBC (0.0-0.2); Platelet Count 311 K/mm3 (150-400); RDW Coefficient Variation 17.7 % (11.7-14.2); RDW Standard Deviation 60.4 fL (35.1-46.3); Red Blood Cell Count 2.73 M/mm3 (4.30-5.90); White Blood Cell Count 12.56 K/mm3 (4.00-11.30)
[2020-02-22 04:11] LABS: Albumin, Blood 2.4 g/dL (3.4-5.0); Anion Gap 11 mmol/L (6-16); Blood Urea Nitrogen 28 mg/dL (8-24); CO2, Blood 25 mmol/L (21-32); Calcium, Blood 8.5 mg/dL (8.5-10.1); Chloride, Blood 108 mmol/L (98-108); Creatinine, Blood 1.27 mg/dL (0.60-1.20); Glomerular Filtration Rate 57 (60-); Glucose, Blood 110 mg/dL (70-99); Magnesium, Blood 2.2 mg/dL (1.6-2.4); Phosphorus, Blood 2.7 mg/dL (2.5-4.9); Sodium, Blood 144 mmol/L (136-145)
--- NOTE | 2020-02-22 05:25 | NUR ---
PT HAS BEEN SOMEWHAT RESTLESS THIS MORNING. HAS PULLED OFF HIS OXYMITER MULTIPLE TIMES, AND UNFORTUNATELY, PRESUMED IN PROCESS OF OXYMITER REMOVAL, PULLED OUT HIS IV FROM RIGHT FOREARM. NEW IV 20 GAUGE X 80 MM PLACED TO RIGHT UA. PT TOLERATED THIS WELL. HAVE INCREASED DIRECT VISUALIZATION OF PT FOR PT SAFETY. RIGHT GROIN SITE REMAINS WNL. NO HEMATOMA OR OOZING. UROSTOMY PATENT. DRAINS TO BEDSIDE BAG. PT DOES TURN HIMSELF SOME IN BED ON HIS OWN. CALL MADE TO DR VEGA CONCERNING POTASSIUM LEVEL OF 3.0. ORDER RECEIVED. WILL CONTINUE TO MONITOR PT, AND WILL REPORT OFF TO ONCOMING RN.
--- NOTE | 2020-02-22 07:15 | NUR ---
Assumed care of pt at 0700. Bedside report received from Mitch SULLIVAN. Pt A&O x 3. Answers questions. Follows commands. Verbalizes needs. Pt on 2 LPM NC. SpO2 90% or greater. Atrial fibrillation per monitor with HR ranging between 85-95. BP stable. Pt has right radial site from first angiogram, CHIEF ENTERPRISE ARCHITECT. Color, sensation, capillary refill equal BUE. Site free of drainage or hematoma. Quarter-sized bruise to site. Pt has right femoral site from second angiogram. Color, sensation, pulses, capillary refill equal BLE. Site free of drainage or hematoma. Site dressed with beingno patch, C/D/I. Urostomy connected to urine collection bag. Bed in lowest position. Call light in reach. Pt denies need at this time.
--- NOTE | 2020-02-22 09:30 | NUR ---
Dr Katz in to see pt. Discussed AM labs and PO potassium given. Provider ordered additional 20 meq PO. Ordered PT/OT and PCU transfer.
--- NOTE | 2020-02-22 11:14 | NUR ---
Dr Bueno in to see pt. Discussed atrial fibrillation. Discussed that patient was in SR early in admission and pt is currently not on atrial fibrillation anticoagulation. Provider discussed additional anticoagulation with patient and spouse. Aspirin to be held today and xarelto to be given. Provider stated pt will most likely be able to discharge on Tuesday. Okay to transfer to PCU.
--- NOTE | 2020-02-22 18:27 | NUR ---
SUMMARY Pt sat up in chair for two hours today before inisiting to go back to bed. Pt then slept for remainder of afternoon. Remained A&O x 3, pleasant and cooperative with care. Pt titrated from 2 LPM NC to room air. SpO2 90% or greater with activity and at rest. Atrial fibrillation per monitor with HR in 80s. BP stable. Pt transferred to PCU 8. Telephone report given to Jessi SULLIVAN.
[2020-02-23 04:00] LABS: BASOPHILS ABSOLUTE AUTO 0.06 K/mm3 (0.00-0.23); BASOPHILS PERCENT AUTO 1 % (0-2); EOSINOPHILS ABSOLUTE AUTO 0.26 K/mm3 (0.00-0.68); EOSINOPHILS PERCENT AUTO 2 % (0-6); Hematocrit 25.8 % (37.0-53.0); Hemoglobin 8.4 g/dL (13.5-17.5); IMMATURE GRAN ABSOLUTE AUTO 0.59 K/mm3 (0.00-0.10); IMMATURE GRAN PERCENT AUTO 5 % (0-1); LYMPHOCYTES ABSOLUTE AUTO 3.09 K/mm3 (0.84-5.20); LYMPHOCYTES PERCENT AUTO 24 % (21-46); MONOCYTES ABSOLUTE AUTO 1.14 K/mm3 (0.16-1.47); MONOCYTES PERCENT AUTO 9 % (4-13); Mean Corpuscular HGB 30.4 pg (26.0-34.0); Mean Corpuscular HGB Conc 32.6 g/dL (31.5-36.5); Mean Corpuscular Volume 94 fL (80-100); Mean Platelet Volume 9.5 fL (9.1-12.4); NEUTROPHILS ABSOLUTE AUTO 7.81 K/mm3 (1.96-9.15); NEUTROPHILS PERCENT AUTO 60 % (41-73); NRBC ABSOLUTE 0.14 K/mm3 (0.00-0.02); NRBC Auto 1.1 /100 WBC (0.0-0.2); Platelet Count 352 K/mm3 (150-400); RDW Coefficient Variation 18.3 % (11.7-14.2); Red Blood Cell Count 2.76 M/mm3 (4.30-5.90); White Blood Cell Count 12.95 K/mm3 (4.00-11.30)
[2020-02-23 04:18] LABS: Albumin, Blood 2.6 g/dL (3.4-5.0); Anion Gap 4 mmol/L (6-16); Blood Urea Nitrogen 29 mg/dL (8-24); CO2, Blood 31 mmol/L (21-32); Calcium, Blood 8.6 mg/dL (8.5-10.1); Chloride, Blood 109 mmol/L (98-108); Creatinine, Blood 1.32 mg/dL (0.60-1.20); Glomerular Filtration Rate 55 (60-); Glucose, Blood 133 mg/dL (70-99); Phosphorus, Blood 2.1 mg/dL (2.5-4.9); Potassium, Blood 3.3 mmol/L (3.5-5.5); Sodium, Blood 144 mmol/L (136-145)
--- NOTE | 2020-02-23 06:22 | NUR ---
SHIFT SUMMARY PT SLEPT T/O SHIFT. PT ALERT AND ORIENTED BUT CONFUSED AT TIMES. PT REPOSITIONED Q 2 HRS. PT REPORTS NO CP OR PRESSURE. R GROIN SITE WNL. R RADIAL SITE WNL WITH BANDAID COVERING. BP STABLE. HR STABLE. O2 SATURATION MAINTAINED ABOVE 92% WHILE ON 1 L OF O2 AND BIPAP. PT ALTERNATED BIPAP AND NASAL CANULA T/O NIGHT. WILL CONTINUE TO MONITOR UNTIL REPORT GIVEN TO DAYSHIFT RN.
--- NOTE | 2020-02-23 18:41 | NUR ---
SHIFT SUMMARY PATIENT IS PLEASANT, ALERT AND ORFIENTED. FAMILY IS A LITTLE DIFFICULT AND DEMANDING. PATIENT HAS BEEN TO IMAGING SINCE HE CAME TO THE FLOOR. NO ACUTE CONCERNS PER PATIENT. AWAITING DISCHARGE AT THIS TIME.
--- NOTE | 2020-02-24 05:14 | NUR ---
SUMMARY PT HAD NO NEW ISSUES NOTED. PT DENIES CX PAIN. PT DID NOTTOLERATE HIS CPAP DURING NIGHT AND PT PLACED ON NC. PT HAS SLEPT AND VOIDED WELL. PT CURRENTLY SLEEPING AND BREATHING EASY. CALL LIGHT IN REACH.
[2020-02-24 05:22] LABS: BASOPHILS ABSOLUTE AUTO 0.06 K/mm3 (0.00-0.23); BASOPHILS PERCENT AUTO 0 % (0-2); EOSINOPHILS ABSOLUTE AUTO 0.36 K/mm3 (0.00-0.68); EOSINOPHILS PERCENT AUTO 2 % (0-6); Hematocrit 24.7 % (37.0-53.0); Hemoglobin 7.9 g/dL (13.5-17.5); IMMATURE GRAN ABSOLUTE AUTO 0.63 K/mm3 (0.00-0.10); IMMATURE GRAN PERCENT AUTO 4 % (0-1); LYMPHOCYTES ABSOLUTE AUTO 3.63 K/mm3 (0.84-5.20); LYMPHOCYTES PERCENT AUTO 24 % (21-46); MONOCYTES PERCENT AUTO 7 % (4-13); Mean Corpuscular HGB 30.5 pg (26.0-34.0); Mean Corpuscular Volume 95 fL (80-100); Mean Platelet Volume 9.8 fL (9.1-12.4); NEUTROPHILS ABSOLUTE AUTO 9.55 K/mm3 (1.96-9.15); NEUTROPHILS PERCENT AUTO 62 % (41-73); NRBC ABSOLUTE 0.15 K/mm3 (0.00-0.02); Platelet Count 383 K/mm3 (150-400); RDW Coefficient Variation 18.6 % (11.7-14.2); RDW Standard Deviation 63.7 fL (35.1-46.3); Red Blood Cell Count 2.59 M/mm3 (4.30-5.90); White Blood Cell Count 15.33 K/mm3 (4.00-11.30)
[2020-02-24 05:44] LABS: Albumin, Blood 2.7 g/dL (3.4-5.0); Anion Gap 7 mmol/L (6-16); Blood Urea Nitrogen 24 mg/dL (8-24); Bun/Creatinine Ratio 19.2 (12.0-20.0); CO2, Blood 28 mmol/L (21-32); Calcium, Blood 8.6 mg/dL (8.5-10.1); Chloride, Blood 108 mmol/L (98-108); Creatinine, Blood 1.25 mg/dL (0.60-1.20); Glomerular Filtration Rate 58 (60-); Glucose, Blood 133 mg/dL (70-99); Phosphorus, Blood 2.7 mg/dL (2.5-4.9); Sodium, Blood 143 mmol/L (136-145)
[2020-02-24 08:31] LABS: Percent Saturation 19.6 % (20.0-50.0)
[2020-02-24 13:22] LABS: Hematocrit 25.9 % (37.0-53.0); Hemoglobin 8.1 g/dL (13.5-17.5)
--- NOTE | 2020-02-24 17:13 | NUR ---
SHIFT SUMMARY PATIENT IS PLEASNT, ALERT AND ORIENTED. DENIES ANY CHEST PAIN OR SHORTNESS OF BREATH. FMAILY AT BEDSIDE CURRENTLY. NO INSULIN NEEDED TODAY. HE HAS HAD MULTIPLE BOWEL MOVEMENTS. HE DENIES ANY CURRENT CONCERNS.
--- NOTE | 2020-02-25 04:17 | NUR ---
RESIDENCY COORDINATOR SUMMARY PT DENIED ANY CHEST PAIN OR SOB DURING THE SHIFT. PT REFUSED TO WEAR HIS CPAP AT NIGHT BUT REMAINED >89 O2 SAT ON 2L VIA NC. PT DENIED ANY PAIN OR NAUSEA DURING THE NIGHT. PT IS AXO X4 BUT BECOMES CONFUSED AT NIGHT ESPECIALLY UPON AWAKENING. PT IS RESTING COMFORTABLY IN BED W CALL LIGHT WITHIN REACH.
[2020-02-25 04:40] LABS: BASOPHILS ABSOLUTE AUTO 0.08 K/mm3 (0.00-0.23); BASOPHILS PERCENT AUTO 1 % (0-2); EOSINOPHILS ABSOLUTE AUTO 0.38 K/mm3 (0.00-0.68); EOSINOPHILS PERCENT AUTO 3 % (0-6); Hematocrit 26.6 % (37.0-53.0); Hemoglobin 8.3 g/dL (13.5-17.5); IMMATURE GRAN ABSOLUTE AUTO 0.78 K/mm3 (0.00-0.10); IMMATURE GRAN PERCENT AUTO 5 % (0-1); LYMPHOCYTES ABSOLUTE AUTO 3.36 K/mm3 (0.84-5.20); LYMPHOCYTES PERCENT AUTO 23 % (21-46); MONOCYTES ABSOLUTE AUTO 1.06 K/mm3 (0.16-1.47); MONOCYTES PERCENT AUTO 7 % (4-13); Mean Corpuscular HGB 29.9 pg (26.0-34.0); Mean Corpuscular HGB Conc 31.2 g/dL (31.5-36.5); Mean Corpuscular Volume 96 fL (80-100); Mean Platelet Volume 9.4 fL (9.1-12.4); NEUTROPHILS ABSOLUTE AUTO 9.16 K/mm3 (1.96-9.15); NEUTROPHILS PERCENT AUTO 62 % (41-73); NRBC ABSOLUTE 0.15 K/mm3 (0.00-0.02); Platelet Count 382 K/mm3 (150-400); RDW Coefficient Variation 18.6 % (11.7-14.2); RDW Standard Deviation 64.9 fL (35.1-46.3); Red Blood Cell Count 2.78 M/mm3 (4.30-5.90); White Blood Cell Count 14.82 K/mm3 (4.00-11.30)
[2020-02-25 04:58] LABS: BAND PERCENT MAN 1 % (0-8); BASOPHILS PERCENT MAN 0 % (0-2); EOSINOPHILS ABSOLUTE MAN 0.59 K/mm3 (0.00-0.68); EOSINOPHILS PERCENT MAN 4 % (0-6); LYMPHOCYTES ABSOLUTE MAN 1.92 K/mm3 (0.84-5.20); LYMPHOCYTES PERCENT MAN 13 % (21-46); METAMYELOCYTE ABSOLUTE MAN 0.44 K/mm3 (0.00-0.00); METAMYELOCYTE PERCENT MAN 3 % (0-0); MONOCYTES ABSOLUTE MAN 0.29 K/mm3 (0.16-1.47); MONOCYTES PERCENT MAN 2 % (4-13); MYELOCYTE ABSOLUTE MAN 0.14 K/mm3 (0.00-0.00); MYELOCYTE PERCENT MAN 1 % (0-0); NEUTROPHILS ABSOLUTE MAN 11.26 K/mm3 (1.96-9.15); PROMYELOCYTE ABSOLUTE MAN 0.14 K/mm3 (0.00-0.00); PROMYELOCYTE PERCENT MAN 1 % (0-0); SEG NEUTROPHILS PERCENT MAN 75 % (41-73); TOTAL CELLS COUNTED 100
[2020-02-25 05:04] LABS: Albumin, Blood 2.7 g/dL (3.4-5.0); Anion Gap 5 mmol/L (6-16); Blood Urea Nitrogen 20 mg/dL (8-24); Bun/Creatinine Ratio 17.5 (12.0-20.0); CO2, Blood 29 mmol/L (21-32); Calcium, Blood 8.6 mg/dL (8.5-10.1); Chloride, Blood 108 mmol/L (98-108); Creatinine, Blood 1.14 mg/dL (0.60-1.20); Glomerular Filtration Rate >60 (60-); Glucose, Blood 122 mg/dL (70-99); Phosphorus, Blood 2.8 mg/dL (2.5-4.9); Potassium, Blood 3.5 mmol/L (3.5-5.5); Sodium, Blood 142 mmol/L (136-145)
[2020-02-25] MEDS ORDERED: PANT40 PO (12:54)
[2020-02-25] MEDS ORDERED: CLOP75 PO (12:55)
[2020-02-25] MEDS ORDERED: FURO40 PO (12:55)
[2020-02-25] MEDS ORDERED: ACET325 PO (12:55)
[2020-02-25] MEDS ORDERED: LIDO700A20 TOP (12:56)
[2020-02-25] MEDS ORDERED: Isosorbide Mono30 MG PO (12:56)
[2020-02-25] MEDS ORDERED: XARELTO20 MG PO (12:57)
[2020-02-25] MEDS ORDERED: METO50 PO (12:57)
[2020-02-25 13:49] LABS: Hematocrit 26.2 % (37.0-53.0); Hemoglobin 8.2 g/dL (13.5-17.5)
--- NOTE | 2020-02-25 14:45 | NUR ---
SUMMARY ATTEMPTED TO CALL REPORT TO [facility], THE NURSE WILL CALL BACK
--- NOTE | 2020-02-25 14:52 | NUR ---
REPORT TO IZABELA THE NURSE AT [facility], PT TAKEN VIA WHEELCHAIR
--- NOTE | 2020-02-25 15:03 | NUR ---
Pt. is dischard and transfered to Rehab.
== END 2020-02-25 14:37 | DRG 853 ==
LOC: ER 14:40 → ICUE 17:57 → PCU 17:57 → ICUE 02-17 12:13 → PCU 02-22 18:14 → MEDS 02-23 15:01 → ENPENDDIS 02-25 13:03 → MEDS 02-25 14:37
PROVIDERS: Emergency Medicine; Family Medicine; Internal Medicine; ADMIT Internal Medicine
PROC: 5A09357 Assistance with Respiratory Ventilation, Less than 24 Consecutive Hours, Continuous Positive Airway Pressure (ICD-10-PCS; principal; 2020-02-16)
PROC: B2111ZZ Fluoroscopy of Multiple Coronary Arteries using Low Osmolar Contrast (ICD-10-PCS; 2020-02-17)
PROC: B240ZZ3 Ultrasonography of Single Coronary Artery, Intravascular (ICD-10-PCS; 2020-02-17)
PROC: 027036Z Dilation of Coronary Artery, One Artery with Three Drug-eluting Intraluminal Devices, Percutaneous Approach (ICD-10-PCS; 2020-02-21)
PROC: B240ZZ3 Ultrasonography of Single Coronary Artery, Intravascular (ICD-10-PCS; 2020-02-21)
DX: A41.9 Sepsis, unspecified organism (principal); J96.01 Acute respiratory failure with hypoxia; J18.9 Pneumonia, unspecified organism; I50.31 Acute diastolic (congestive) heart failure; I21.4 Non-ST elevation (NSTEMI) myocardial infarction; L03.115 Cellulitis of right lower limb; N17.9 Acute kidney failure, unspecified; I13.0 Hypertensive heart and chronic kidney disease with heart failure and stage 1 through stage 4 chronic kidney disease, or unspecified chronic kidney disease; R65.20 Severe sepsis without septic shock; E11.40 Type 2 diabetes mellitus with diabetic neuropathy, unspecified; Z89.411 Acquired absence of right great toe; Z90.89 Acquired absence of other organs; Z85.46 Personal history of malignant neoplasm of prostate; Z79.4 Long term (current) use of insulin; N18.30 Chronic kidney disease, stage 3 unspecified; E11.22 Type 2 diabetes mellitus with diabetic chronic kidney disease; Z20.828 Contact with and (suspected) exposure to other viral communicable diseases; Z93.6 Other artificial openings of urinary tract status; Z92.21 Personal history of antineoplastic chemotherapy; Z92.3 Personal history of irradiation; I25.10 Atherosclerotic heart disease of native coronary artery without angina pectoris; I48.0 Paroxysmal atrial fibrillation; D63.1 Anemia in chronic kidney disease; Z87.891 Personal history of nicotine dependence
CPT/HCPCS: 0202U; 36415; 71045; 71046; 71275; 73630; 76882; 76937; 80048; 80053; 80069; 81001; 82607; 82728; 82746; 82803; 82947; 83540; 83550; 83605; 83735; 83880; 84145; 84484; 85014; 85018; 85025; 85027; 85347; 85379; 85651; 85730; 87040; 87077; 87086; 87186; 92920; 92978; 93005; 93010; 93308; 93321; 93454; 94660; 94762; 96361; 96365; 96367; 96375; 97116; 97162; 97165; 97530; 99152; 99153; 99285-25; A9270; A9270-GY; C1725; C1753; C1769; C1874; C1887; C1894; C9600; J0456; J0696; J1170; J1644; J1940; J2250; J2270; J2370; J2405; J2543; J2704; J3010; J7030; J7050; J7120; Q9967

== ENCOUNTER → 2020-04-30 | Outpatient (CLI) | payer MEDICARE, OTHER ==
[~2020-04-30] MED LIST changes: +CLOP75 PO; +FURO40 PO; +Isosorbide Mono30 MG PO; +LIDO700A20 TOP; +METO50 PO; +PANT40 PO; +XARELTO20 MG PO
[2020-04-30 15:58] LABS: Appearance, Urine Cloudy (Clear); Bilirubin, Urine Neg (Neg); Blood, Urine 5+ (Neg); Color, Urine Yellow (P-Yellow); Glucose Qualitative, Urine Neg (Neg); Ketones, Urine 1+ (Neg); Leukocyte Esterase, Urine 3+ (Neg); Nitrite, Urine Neg (Neg); Protein, Urine 2+ (Neg); Urobilinogen, Urine NORM (Normal)
[2020-04-30 16:12] LABS: Bacteria Many /hpf; Red Blood Cells, Urine TNTC /hpf (0-2); Squamous Epithelial Cells Few /hpf (Few); White Blood Cells, Urine 25-50 /hpf (0-5)
[2020-04-30 16:13] LABS: Amorphous Mod (0-Heavy)
== END | disposition home or self-care (01) ==
LOC: LAB 14:54
PROVIDERS: Internal Medicine
DX: R39.89 Other symptoms and signs involving the genitourinary system (principal)
CPT/HCPCS: 81001; 87077; 87086; 87186

== ENCOUNTER 2020-10-27 11:43 | Emergency (ER) | payer MEDICARE, OTHER ==
[~2020-10-27] VITALS: Ht 190.5 cm; Wt 108.9 kg
[2020-10-27 12:06] LABS: BASOPHILS ABSOLUTE AUTO 0.02 K/mm3 (0.00-0.23); BASOPHILS PERCENT AUTO 0 % (0-2); EOSINOPHILS ABSOLUTE AUTO 0.01 K/mm3 (0.00-0.68); EOSINOPHILS PERCENT AUTO 0 % (0-6); Hematocrit 30.6 % (37.0-53.0); Hemoglobin 10.1 g/dL (13.5-17.5); IMMATURE GRAN ABSOLUTE AUTO 0.03 K/mm3 (0.00-0.10); IMMATURE GRAN PERCENT AUTO 0 % (0-1); LYMPHOCYTES ABSOLUTE AUTO 1.74 K/mm3 (0.84-5.20); LYMPHOCYTES PERCENT AUTO 20 % (21-46); MONOCYTES ABSOLUTE AUTO 0.99 K/mm3 (0.16-1.47); MONOCYTES PERCENT AUTO 11 % (4-13); Mean Corpuscular Volume 91 fL (80-100); Mean Platelet Volume 9.3 fL (9.1-12.4); NEUTROPHILS ABSOLUTE AUTO 6.02 K/mm3 (1.96-9.15); NEUTROPHILS PERCENT AUTO 68 % (41-73); Platelet Count 174 K/mm3 (150-400); RDW Coefficient Variation 18.3 % (11.7-14.2); RDW Standard Deviation 60.3 fL (35.1-46.3); Red Blood Cell Count 3.37 M/mm3 (4.30-5.90); White Blood Cell Count 8.81 K/mm3 (4.00-11.30)
[2020-10-27 12:24] LABS: Albumin, Blood 3.1 g/dL (3.4-5.0); Albumin/Globulin Ratio 1.2 (0.8-1.8); Bilirubin, Total 1.2 mg/dL (0.1-1.0); Bun/Creatinine Ratio 20.5 (12.0-20.0); Calcium, Blood 8.4 mg/dL (8.5-10.1); Creatinine, Blood 1.51 mg/dL (0.60-1.20); Globulin, Blood 2.5 g/dL (2.2-4.0); Potassium, Blood 3.7 mmol/L (3.5-5.5); Total Protein, Blood 5.6 g/dL (6.4-8.2)
[2020-10-27] MEDS ORDERED: AMOCLA875 PO (14:27)
== END 2020-10-27 14:55 | disposition home or self-care (01) ==
LOC: ER 11:43
PROVIDERS: Emergency Medicine
DX: J18.9 Pneumonia, unspecified organism (principal); I11.0 Hypertensive heart disease with heart failure; I50.9 Heart failure, unspecified; E11.9 Type 2 diabetes mellitus without complications; E11.40 Type 2 diabetes mellitus with diabetic neuropathy, unspecified; Z79.02 Long term (current) use of antithrombotics/antiplatelets; Z79.01 Long term (current) use of anticoagulants; Z79.899 Other long term (current) drug therapy; Z91.09 Other allergy status, other than to drugs and biological substances; Z88.1 Allergy status to other antibiotic agents
CPT/HCPCS: 36415; 71046; 80053; 85025; 93005; 93010; 94640; 99284-25; A9270

== ENCOUNTER → 2021-03-11 | Outpatient (CLI) | payer MEDICARE, OTHER | END | disposition home or self-care (01) | LOC: LAB 08:45 → LAB SHORT 08:45 | DX: L08.0 Pyoderma (principal) | CPT/HCPCS: 87070; 87205 ==

== ENCOUNTER → 2021-04-02 | Outpatient (CLI) | payer MEDICARE, OTHER ==
[~2021-04-02] MED LIST changes: +CEFDINIR300 M4; +DOXYCYCLINE HY100 M1; +LISI5; +LISINOPRIL TAB 5MG; +MUPIROCIN22 G6; +Tessalon200 MG; +Ventolin/Prove6.7 GM
[2021-04-02 15:09] LABS: BASOPHILS ABSOLUTE AUTO 0.02 K/mm3 (0.00-0.23); BASOPHILS PERCENT AUTO 0 % (0-2); EOSINOPHILS ABSOLUTE AUTO 0.08 K/mm3 (0.00-0.68); EOSINOPHILS PERCENT AUTO 1 % (0-6); Hematocrit 32.7 % (37.0-53.0); Hemoglobin 10.8 g/dL (13.5-17.5); IMMATURE GRAN ABSOLUTE AUTO 0.05 K/mm3 (0.00-0.10); IMMATURE GRAN PERCENT AUTO 1 % (0-1); LYMPHOCYTES ABSOLUTE AUTO 1.27 K/mm3 (0.84-5.20); LYMPHOCYTES PERCENT AUTO 16 % (21-46); MONOCYTES ABSOLUTE AUTO 0.96 K/mm3 (0.16-1.47); MONOCYTES PERCENT AUTO 12 % (4-13); Mean Corpuscular HGB 30.3 pg (26.0-34.0); Mean Corpuscular Volume 92 fL (80-100); NEUTROPHILS ABSOLUTE AUTO 5.55 K/mm3 (1.96-9.15); NEUTROPHILS PERCENT AUTO 70 % (41-73); Platelet Count 170 K/mm3 (150-400); RDW Coefficient Variation 18.6 % (11.7-14.2); RDW Standard Deviation 62.5 fL (35.1-46.3); Red Blood Cell Count 3.56 M/mm3 (4.30-5.90); White Blood Cell Count 7.93 K/mm3 (4.00-11.30)
[2021-04-02 15:12] LABS: Bun/Creatinine Ratio 17.4 (12.0-20.0); Calcium, Blood 8.8 mg/dL (8.5-10.1); Creatinine, Blood 1.44 mg/dL (0.60-1.20); Potassium, Blood 3.7 mmol/L (3.5-5.5)
== END | disposition home or self-care (01) ==
LOC: LAB SHORT 15:02 → LAB 15:02
PROVIDERS: Physician Assistant Surgical
DX: R53.83 Other fatigue (principal)
CPT/HCPCS: 80048; 85025

== ENCOUNTER 2021-04-03 22:41 | Inpatient (IN) | payer MEDICARE, OTHER ==
[~2021-04-03] VITALS: Ht 190.5 cm; Wt 105.1 kg
[~2021-04-03 22:41] MED LIST changes: -CEFDINIR300 M4; -DOXYCYCLINE HY100 M1; -LISI5; -LISINOPRIL TAB 5MG; -MUPIROCIN22 G6; -Tessalon200 MG; -Ventolin/Prove6.7 GM
[2021-04-04 00:13] LABS: Source, Urine Urostomy Bag
[2021-04-04 00:17] LABS: BASOPHILS ABSOLUTE AUTO 0.02 K/mm3 (0.00-0.23); BASOPHILS PERCENT AUTO 0 % (0-2); EOSINOPHILS ABSOLUTE AUTO 0.04 K/mm3 (0.00-0.68); EOSINOPHILS PERCENT AUTO 1 % (0-6); Hematocrit 34.6 % (37.0-53.0); Hemoglobin 11.2 g/dL (13.5-17.5); IMMATURE GRAN ABSOLUTE AUTO 0.06 K/mm3 (0.00-0.10); IMMATURE GRAN PERCENT AUTO 1 % (0-1); LYMPHOCYTES ABSOLUTE AUTO 0.99 K/mm3 (0.84-5.20); LYMPHOCYTES PERCENT AUTO 12 % (21-46); MONOCYTES ABSOLUTE AUTO 0.85 K/mm3 (0.16-1.47); MONOCYTES PERCENT AUTO 10 % (4-13); Mean Corpuscular HGB 29.8 pg (26.0-34.0); Mean Corpuscular HGB Conc 32.4 g/dL (31.5-36.5); Mean Corpuscular Volume 92 fL (80-100); Mean Platelet Volume 9.3 fL (9.1-12.4); NEUTROPHILS ABSOLUTE AUTO 6.42 K/mm3 (1.96-9.15); NEUTROPHILS PERCENT AUTO 77 % (41-73); Platelet Count 185 K/mm3 (150-400); RDW Coefficient Variation 18.3 % (11.7-14.2); RDW Standard Deviation 61.8 fL (35.1-46.3); Red Blood Cell Count 3.76 M/mm3 (4.30-5.90); White Blood Cell Count 8.38 K/mm3 (4.00-11.30)
[2021-04-04 00:19] LABS: Appearance, Urine Cloudy (Clear); Bilirubin, Urine Neg (Neg); Blood, Urine 5+ (Neg); Color, Urine Amber (P-Yellow); Glucose Qualitative, Urine Neg (Neg); Ketones, Urine Neg (Neg); Leukocyte Esterase, Urine 3+ (Neg); Nitrite, Urine Pos (Neg); Protein, Urine 3+ (Neg); Urobilinogen, Urine NORM (Normal); pH, Urine 6.5 (5.0-8.0)
[2021-04-04 00:24] LABS: Bacteria Many /hpf; Mucus Light (0-Heavy); Red Blood Cells, Urine TNTC /hpf (0-2); Squamous Epithelial Cells Not Seen /hpf (Few); White Blood Cells, Urine 50-100 /hpf (0-5)
[2021-04-04 00:29] LABS: Albumin, Blood 3.3 g/dL (3.4-5.0); Albumin/Globulin Ratio 1.1 (0.8-1.8); Bun/Creatinine Ratio 19.3 (12.0-20.0); Calcium, Blood 8.9 mg/dL (8.5-10.1); Creatinine, Blood 1.35 mg/dL (0.60-1.20); Globulin, Blood 2.9 g/dL (2.2-4.0); Potassium, Blood 3.7 mmol/L (3.5-5.5); Total Protein, Blood 6.2 g/dL (6.4-8.2)
[2021-04-04 02:20] LABS: SARS-Cov-2 (COVID-19) PCR, MMC NEGATIVE (NEGATIVE)
[2021-04-04] MEDS ORDERED: Tessalon200 MG (03:48)
[2021-04-04] MEDS ORDERED: CEFDINIR300 M4 (03:48)
[2021-04-04] MEDS ORDERED: DOXYCYCLINE HY100 M1 (03:48)
[2021-04-04] MEDS ORDERED: LISI5 (03:49)
[2021-04-04] MEDS ORDERED: Ventolin/Prove6.7 GM (03:49)
[2021-04-04] MEDS ORDERED: LISINOPRIL TAB 5MG (03:49)
[2021-04-04] MEDS ORDERED: MUPIROCIN22 G6 (03:49)
[2021-04-04 06:35] LABS: BASOPHILS ABSOLUTE AUTO 0.03 K/mm3 (0.00-0.23); BASOPHILS PERCENT AUTO 0 % (0-2); EOSINOPHILS ABSOLUTE AUTO 0.01 K/mm3 (0.00-0.68); EOSINOPHILS PERCENT AUTO 0 % (0-6); Hematocrit 33.2 % (37.0-53.0); Hemoglobin 10.6 g/dL (13.5-17.5); IMMATURE GRAN PERCENT AUTO 1 % (0-1); LYMPHOCYTES ABSOLUTE AUTO 3.61 K/mm3 (0.84-5.20); LYMPHOCYTES PERCENT AUTO 30 % (21-46); MONOCYTES ABSOLUTE AUTO 0.92 K/mm3 (0.16-1.47); MONOCYTES PERCENT AUTO 8 % (4-13); Mean Corpuscular HGB 29.9 pg (26.0-34.0); Mean Corpuscular HGB Conc 31.9 g/dL (31.5-36.5); Mean Corpuscular Volume 94 fL (80-100); Mean Platelet Volume 9.7 fL (9.1-12.4); NEUTROPHILS PERCENT AUTO 62 % (41-73); Platelet Count 189 K/mm3 (150-400); RDW Coefficient Variation 18.5 % (11.7-14.2); RDW Standard Deviation 63.8 fL (35.1-46.3); Red Blood Cell Count 3.55 M/mm3 (4.30-5.90); White Blood Cell Count 12.17 K/mm3 (4.00-11.30)
[2021-04-04 06:54] LABS: Bilirubin, Total 0.9 mg/dL (0.1-1.0); Bun/Creatinine Ratio 19.8 (12.0-20.0); Calcium, Blood 8.4 mg/dL (8.5-10.1); Creatinine, Blood 1.26 mg/dL (0.60-1.20); Potassium, Blood 3.5 mmol/L (3.5-5.5)
--- NOTE | 2021-04-04 17:52 | NUR ---
SHIFT SUMMARY PT ALERT AND ORIENTED. PT CAME UP FROM ER ON 6L NC. PT WAS DESATURATING TO MID 80'S. BREATHING LABORED AND LS WHEEZES THROUGHOUT AND COARSE IN THE BASES. PT PLACED ON BIPAP WITH 10L BLEED IN TO INCREASE O2 SATS TO >90%. BREATHING TX PROVIDED. PT REPORTS WORK OF BREATHING HAS IMPROVED. TEMP ELEVATED AND PT PROVIDED TYLENOL. TROP ELEVATED AND CARDIOLOGY CONSULTED. DR. RASHEED IN TO SEE PT THIS EVENING. WILL CONTINUE TO MONITOR CLOSELY.
[2021-04-04 19:44] LABS: International Normalized Ratio 1.13; Prothrombin Time Results 11.8 Sec (9.7-11.5)
[2021-04-05 02:21] LABS: BASOPHILS ABSOLUTE AUTO 0.01 K/mm3 (0.00-0.23); BASOPHILS PERCENT AUTO 0 % (0-2); EOSINOPHILS PERCENT AUTO 0 % (0-6); Hematocrit 32.2 % (37.0-53.0); Hemoglobin 10.4 g/dL (13.5-17.5); IMMATURE GRAN ABSOLUTE AUTO 0.07 K/mm3 (0.00-0.10); IMMATURE GRAN PERCENT AUTO 1 % (0-1); LYMPHOCYTES ABSOLUTE AUTO 0.37 K/mm3 (0.84-5.20); LYMPHOCYTES PERCENT AUTO 7 % (21-46); MONOCYTES ABSOLUTE AUTO 0.14 K/mm3 (0.16-1.47); MONOCYTES PERCENT AUTO 3 % (4-13); Mean Corpuscular HGB Conc 32.3 g/dL (31.5-36.5); Mean Corpuscular Volume 93 fL (80-100); Mean Platelet Volume 9.5 fL (9.1-12.4); NEUTROPHILS ABSOLUTE AUTO 4.96 K/mm3 (1.96-9.15); NEUTROPHILS PERCENT AUTO 89 % (41-73); Platelet Count 157 K/mm3 (150-400); RDW Coefficient Variation 18.3 % (11.7-14.2); RDW Standard Deviation 62.1 fL (35.1-46.3); Red Blood Cell Count 3.47 M/mm3 (4.30-5.90); White Blood Cell Count 5.55 K/mm3 (4.00-11.30)
[2021-04-05 02:38] LABS: Bun/Creatinine Ratio 22.7 (12.0-20.0); Calcium, Blood 8.4 mg/dL (8.5-10.1); Creatinine, Blood 1.32 mg/dL (0.60-1.20); Potassium, Blood 3.9 mmol/L (3.5-5.5)
--- NOTE | 2021-04-05 03:15 | NUR ---
HEPARIN HEPARIN GTT ON STANDBY FOR 1 HOUR PER PHARMACY DUE TO CRITICAL HIGH PTT. WATER SYSTEMS ENGINEER CALLED PHARMACY, SEE UPDATED ORDERS.
--- NOTE | 2021-04-05 05:28 | NUR ---
SHIFT SUMMARY PATIENT ALERT AND ORIENTED ALL SHIFT. VSS. 6L NC REMAINS IN PLACE THROUGH OUT THE NIGHT WITH OXYGEN SATURATION ABOVE 90%. CPAP AT BEDSIDE BUT PATIENT REFUSED TO WEAR DURING NIGHT. DENIES CHEST PAIN OR PRESSURE. UROSTOMY DRAINING DARK YELLOW/TEA URINE. HEPARIN GTT INFUSING. MEDIACTED WITH TYLENOL ONCE DURING THE NIGHT FOR HEADACHE AND LOW FEVER WITH RELIEF. NO SIGNIFICANT CHANGES OR COMPLAINTS. WILL CONTINUE TO MONITOR.
--- NOTE | 2021-04-05 10:17 | NUR ---
UPDATE PHYSICIAN UPDATED ON PT'S BLOOD TINGED SPUTUM THIS AM. PHYSICIAN TO SEE PT AT BEDSIDE. HEMATURIA NOTED AT THIS TIME. HOSPITALIST AND DR. RASHEED AWARE. HEPARIN GTT STOPPED AT THIS TIME PER PHYSICIAN ORDERS. WILL CONT TO MONITOR.
--- NOTE | 2021-04-05 11:43 | NUR ---
ECHOCARDIOGRAM COMPLETE
[2021-04-05 12:11] LABS: Hematocrit 33.2 % (37.0-53.0); Hemoglobin 10.8 g/dL (13.5-17.5)
--- NOTE | 2021-04-05 17:54 | NUR ---
SHIFT SUMMARY PT ALERT AND ORIENTED X 4. HR STABLE. BP STABLE. OXYGEN SATURATION MAINTIANED ABOVE 92% ON 2-4 L OF OXYGEN VIA NC. NO CP OR PRESSURE REPORTED. PT COUGHED UP SMALL QUARTER SIZED AMOUNTS OF BLOOD THIS AM. AND HAD HEMATURIA. PHYSICIAN AWARE, ORDERS TO STOP HEPARIN GTT. NO MORE BLEEDING DURING SHIFT. PT WORKED WITH OT THIS AFTERNOON. PT A SBA. TO SEE P TDURING SHIFT. WILL CONT TO MONITOR UNTIL REPORT GIVEN TO NIGHTSHIFT RN.
--- NOTE | 2021-04-05 19:52 | NUR ---
CHEST PAIN REPORTED PT REPORTED SEVERE CRUSHING CHEST PAIN. EKG DONE, NITRO GIVEN. DR. RASHEED NOTIFIED. DR. RASHEED AT BEDSIDE TO SEE PT AT THIS TIME. REPORT GIVEN TO NATE ALLISON
[2021-04-06 04:10] LABS: BASOPHILS ABSOLUTE AUTO 0.01 K/mm3 (0.00-0.23); BASOPHILS PERCENT AUTO 0 % (0-2); EOSINOPHILS PERCENT AUTO 0 % (0-6); Hematocrit 30.7 % (37.0-53.0); Hemoglobin 10.1 g/dL (13.5-17.5); IMMATURE GRAN ABSOLUTE AUTO 0.13 K/mm3 (0.00-0.10); IMMATURE GRAN PERCENT AUTO 1 % (0-1); LYMPHOCYTES ABSOLUTE AUTO 0.37 K/mm3 (0.84-5.20); LYMPHOCYTES PERCENT AUTO 4 % (21-46); MONOCYTES ABSOLUTE AUTO 0.43 K/mm3 (0.16-1.47); MONOCYTES PERCENT AUTO 4 % (4-13); Mean Corpuscular HGB 29.8 pg (26.0-34.0); Mean Corpuscular HGB Conc 32.9 g/dL (31.5-36.5); Mean Corpuscular Volume 91 fL (80-100); Mean Platelet Volume 9.7 fL (9.1-12.4); NEUTROPHILS ABSOLUTE AUTO 9.13 K/mm3 (1.96-9.15); NEUTROPHILS PERCENT AUTO 91 % (41-73); NRBC ABSOLUTE 0.02 K/mm3 (0.00-0.02); NRBC Auto 0.2 /100 WBC (0.0-0.2); Platelet Count 178 K/mm3 (150-400); RDW Standard Deviation 59.7 fL (35.1-46.3); Red Blood Cell Count 3.39 M/mm3 (4.30-5.90); White Blood Cell Count 10.07 K/mm3 (4.00-11.30)
[2021-04-06 04:41] LABS: Bun/Creatinine Ratio 25.6 (12.0-20.0); Calcium, Blood 8.6 mg/dL (8.5-10.1); Creatinine, Blood 1.25 mg/dL (0.60-1.20); Troponin I 0.454 ng/mL (0.000-0.040)
--- NOTE | 2021-04-06 05:33 | NUR ---
SHIFT SUMMARY PT RESTED SOME THROUGH THE NIGHT. ALERT AND ORIENTED X3, ABLE TO MAKE NEEDS KNOWN AND COOPERATIVE WITH PLAN OF CARE. AT START OF SHIFT, PT BEGAN TO C/O CHEST PAIN RATING 7/10, WAS IN OBVIOUS DISTRESS HAVING DIFFICULTY BREATHING. DAY RN CALLED MD SHANNON. MD CAME TO BEDSIDE. RN GAVE 3 NITRO TABLETS - SEE EMAR. CHEST PAIN IMPROVED TO 1/10 WITH VITALS STABLE. MD NOTED IF THIS SHOULD HAPPEN AGAIN, PT MAY NEED TO BE TRANSFERRED TO ICU FOR A NITRO GTT. FORTUNATELY, CHEST PAIN REMAINED AT 1/10 THROUGH REST OF NIGHT. TROPONINS RESULTED 0.490 AND 0.454. SATS >90% ON 3LNC. TELE RUNNING AFIB RATE 90-110'S. VOIDING TO URINAL. NO BM. Q2 TURNS. VSS. CALL LIGHT WITHIN REACH, BED IN LOWEST POSITION. WILL CONTINUE TO MONITOR.
--- NOTE | 2021-04-06 16:28 | NUR ---
I went and spoke with patient today in his room. His Kendra Shen was there . Patient and stated they live in their single-level home. Patient has two walkers and a CPAP machine he uses regularly. We anticipate maybe having to order home 02 for the patient. Patient previously received home health services from [facility]. Pt also previously went to [facility] - patients would request not to return there and would prefer him not to go to a SNF. Patient's provides a lot of support.
--- NOTE | 2021-04-06 18:27 | NUR ---
SHIFT SUMMARY: PT A&O T/OUT SHIFT, FORGETFUL OF LIMITATIONS AT TIMES BUT BED/CHAIR ALARMS ENGAGED T/OUT DAY FOR SAFETY. AT BEGINNING OF SHIFT, PT FOUND TO BE ON O2 AT 6L/MIN, HAS BEEN TITRATED TO 4L/MIN AND ABLE TO MAINTAIN O2 SATS >92%. AFIB CONTINUES ON MONITOR. PT WALKED TO RESTROOM W/FWW AND SBA, MILD WEAKNESS NOTED. PT RECEIVED BEDBATH TODAY. UROSTOMY CONTINUES IN PLACE W/GOOD URINE OUTPUT. HEPARIN INFUSING PER ORDERS, NO SIGNS OF ADVERSE BLEEDING NOTED THUS FAR. AT THIS TIME, PT RESTING QUIETLY IN BED W/TV ON AND CALL LIGHT W/IN REACH. WILL CONTINUE TO MONITOR AND TREAT ACCORDINGLY UNTIL CHANGE OF SHIFT.
--- NOTE | 2021-04-07 00:02 | NUR ---
CARE NOTE PT IS ALERT AND ORIENTED X 4. SPO2 IN 90'S VIA 4L NC. HEPARIN DRIP INFUSING IN LEFT AC AT ORDERED DOSE OF 13UNITS/KG/HOUR. PT REPORTED FEELING CHEST PAIN RATING 2/10 APPROX. 1930. PT REPORTED PAIN CAME AND WENT AND DID NOT INCREASE PAST 2/10 ON PAIN SCALE. THIS NURSE SPOKE WITH CHARGE NURSE ESTEFANY Vanessa TO UPDATE ABOUT CHEST PAIN. WILL CONTINUE TO MONITOR. CUSTOMS OPENER VERIFIER PACKER IN PLACE. JERAMIE ON MONITOR CALLED THIS NURSE TO UPDATE THAT OCCASIONAL SVT'S WERE NOTED BUT REPORTED THAT PT HAD BEATS OF SVT'S EARLIER IN SHIFT. THIS NURSE TOLD JERAMIE TO CONTINUE TO UPDATE IF RUNS OF SVT'S CONTINUE. PT'S UROSTOMY IS DRAINING YELLOW OUTPUT, STOMA APPEARS PINK AND NON-IRRITATED. LIDOCAINE PATCH ON PT'S RIGHT FOOT REMOVED DURING MEDICATION PASS AT 2100. PT IS CURRENTLY WATCHING TV, CALL LIGHT IN REACH. WILL CONTINUE TO MONITOR.
[2021-04-07 04:01] LABS: BASOPHILS ABSOLUTE AUTO 0.01 K/mm3 (0.00-0.23); BASOPHILS PERCENT AUTO 0 % (0-2); EOSINOPHILS PERCENT AUTO 0 % (0-6); Hematocrit 28.6 % (37.0-53.0); Hemoglobin 9.6 g/dL (13.5-17.5); IMMATURE GRAN PERCENT AUTO 2 % (0-1); LYMPHOCYTES ABSOLUTE AUTO 0.42 K/mm3 (0.84-5.20); LYMPHOCYTES PERCENT AUTO 5 % (21-46); MONOCYTES ABSOLUTE AUTO 0.46 K/mm3 (0.16-1.47); MONOCYTES PERCENT AUTO 6 % (4-13); Mean Corpuscular HGB Conc 33.6 g/dL (31.5-36.5); Mean Corpuscular Volume 89 fL (80-100); Mean Platelet Volume 9.6 fL (9.1-12.4); NEUTROPHILS PERCENT AUTO 87 % (41-73); Platelet Count 187 K/mm3 (150-400); RDW Coefficient Variation 18.1 % (11.7-14.2); RDW Standard Deviation 59.6 fL (35.1-46.3); White Blood Cell Count 8.39 K/mm3 (4.00-11.30)
--- NOTE | 2021-04-07 04:10 | NUR ---
CARE NOTE PT IS ALERT AND ORIENTED X 4. HE DENIED FEELINGS OF CHEST PAIN, RANKED 0/10 FROM PREVIOUS ASSESSMENT OF 2/10. HEPARIN DRIP CONTINUES AT 13UNITS/KG/HR, 25ML/HR PER EMAR ORDERS. UROSTOMY CONTINUES TO PRODUCE YELLOW OUTPUT. PT EXPRESSED CONCERN OF INABILITY TO HAVE A BM. WILL REVIEW EMAR FOR PHARMACEUTICAL INTERVENTION WELL PASS ON TO DAY NURSE IN REPORT. PT REMAINS IN AFIB, HR 90'S, SPO2 97% VIA 3L NC, OTHER VITAL SIGNS STABLE. PT REPORTED SCANT AMOUNT OF BROWN COLORED SPUTUM, NO OTHER SIGNS OF BLEEDING. WILL CONTINUE TO MONITOR. CALL LIGHT IN REACH. BED IN LOW, PT NOW WATCHING TV.
[2021-04-07 04:25] LABS: Alanine Aminotransfer (ALT/SGP 22 U/L (12-78); Albumin, Blood 2.6 g/dL (3.4-5.0); Albumin/Globulin Ratio 0.9 (0.8-1.8); Alk Phos 62 U/L (50-136); Anion Gap 7 mmol/L (6-16); Aspartate Aminotrans (AST/SGOT 22 U/L (12-37); Bilirubin, Total 0.7 mg/dL (0.1-1.0); Blood Urea Nitrogen 29 mg/dL (8-24); Bun/Creatinine Ratio 26.4 (12.0-20.0); CO2, Blood 26 mmol/L (21-32); Calcium, Blood 8.5 mg/dL (8.5-10.1); Chloride, Blood 106 mmol/L (98-108); Globulin, Blood 2.8 g/dL (2.2-4.0); Glomerular Filtration Rate >60 (60-); Glucose, Blood 230 mg/dL (70-99); Sodium, Blood 139 mmol/L (136-145); Total Protein, Blood 5.4 g/dL (6.4-8.2)
--- NOTE | 2021-04-07 05:56 | NUR ---
SHIFT SUMMARY PT REMAINED ALERT AND ORIENTED X 4. HE IS PLEASANT AND COOPERATIVE WITH CARE. FEELINGS OF CHEST PAIN DENIED AT THIS TIME. HEPARIN DRIP INFUSING PER EMAR ORDERS AT 13UNITS/KG/HR. SPO2 MAINTAINED 96% VIA 3L NC. OCCASIONAL PRODUCTIVE COUGH NOTED. PT REMAINED AFEBRILE DURING SHIFT AND IS IN AFIB 90'S. ELECTRONIC INDUSTRIAL CONTROLS MECHANIC IN PLACE. UROSTOMY IS PATENT AND DRAINING YELLOW OUTPUT. THIS NURSE ASKED PATENT IF HE WANTED PRN LAXITIVE WHEN PROTONIX GIVEN AND PT STATED THAT HE WOULD RATHER TAKE LAXITIVE DURING 0900 MED PASS, WILL LET ONCOMING RN KNOW. NO OTHER ACUTE CHANGES NOTED. WILL CONTINUE TO MONITOR. CALL LIGHT IN REACH.
--- NOTE | 2021-04-07 12:57 | NUR ---
Met pt. sitting up in a chair resting ,pt. reports doing much better today encouraged pt. prayed and gave spiritual support.
--- NOTE | 2021-04-07 16:43 | NUR ---
SHIFT SUMMARY: PT CONTINUES A&O T/OUT SHIFT, MAINTAINING O2 SATS >92%, O2 FLOW HAS BEEN TITRATED TO 1 L/MIN, PT TOLERATING WELL THUS FAR, AFIB CONTINUES ON MONITOR W/RATE 80s-110. PT AMBULATES IN ROOM W/FWW TO RESTROOM TO ATTEMPT BM, BUT REPORTS JUST PASSING GAS. HEPARIN INFUSION CONTINUES W/NO SIGNS OF BLOOD IN URINE OR SPUTUM. PT HAS CONTINUED TO DENY CHEST PAIN/PRESSURE T/OUT DAY. AT THIS TIME, PT IS RESTING QUIETLY IN ROOM W/TV ON AND CALL LIGHT WITHIN REACH. WILL CONTINUE TO MONITOR AND TREAT ACCORDINGLY UNTIL CHANGE OF SHIFT.
--- NOTE | 2021-04-07 22:29 | NUR ---
CHEST PAIN PATIENT CALLED AND REPORTED 1-2/10 CHEST PAIN AROUND 2019. MEDICATED WITH 2 NITRO, PATIENT REFUSED 3rd NITRO. SEE EMAR. TELE REPORTED INCREASE IN HR TO 140s. ALL OTHER VTIALS STABLE. MEDICATED WITH 2100 MEDS. PATIENT REPORTED RELIEF OF CHEST PAIN AFTER MED PASS. WILL CONTINUE TO MONITOR CLOSELY.
[2021-04-08 02:15] LABS: BASOPHILS ABSOLUTE AUTO 0.03 K/mm3 (0.00-0.23); BASOPHILS PERCENT AUTO 0 % (0-2); EOSINOPHILS PERCENT AUTO 0 % (0-6); Hematocrit 29.4 % (37.0-53.0); Hemoglobin 9.7 g/dL (13.5-17.5); IMMATURE GRAN ABSOLUTE AUTO 0.41 K/mm3 (0.00-0.10); IMMATURE GRAN PERCENT AUTO 4 % (0-1); LYMPHOCYTES ABSOLUTE AUTO 0.52 K/mm3 (0.84-5.20); LYMPHOCYTES PERCENT AUTO 6 % (21-46); MONOCYTES ABSOLUTE AUTO 0.47 K/mm3 (0.16-1.47); MONOCYTES PERCENT AUTO 5 % (4-13); Mean Corpuscular HGB 29.5 pg (26.0-34.0); Mean Corpuscular Volume 89 fL (80-100); Mean Platelet Volume 9.3 fL (9.1-12.4); NEUTROPHILS PERCENT AUTO 85 % (41-73); Platelet Count 208 K/mm3 (150-400); RDW Coefficient Variation 18.1 % (11.7-14.2); RDW Standard Deviation 59.6 fL (35.1-46.3); Red Blood Cell Count 3.29 M/mm3 (4.30-5.90); White Blood Cell Count 9.23 K/mm3 (4.00-11.30)
[2021-04-08 02:32] LABS: Alanine Aminotransfer (ALT/SGP 22 U/L (12-78); Albumin, Blood 2.7 g/dL (3.4-5.0); Alk Phos 63 U/L (50-136); Anion Gap 8 mmol/L (6-16); Aspartate Aminotrans (AST/SGOT 15 U/L (12-37); Bilirubin, Total 0.9 mg/dL (0.1-1.0); Blood Urea Nitrogen 29 mg/dL (8-24); Bun/Creatinine Ratio 27.6 (12.0-20.0); CO2, Blood 27 mmol/L (21-32); Calcium, Blood 8.7 mg/dL (8.5-10.1); Chloride, Blood 103 mmol/L (98-108); Creatinine, Blood 1.05 mg/dL (0.60-1.20); Globulin, Blood 2.7 g/dL (2.2-4.0); Glomerular Filtration Rate >60 (60-); Glucose, Blood 283 mg/dL (70-99); Potassium, Blood 3.9 mmol/L (3.5-5.5); Sodium, Blood 138 mmol/L (136-145); Total Protein, Blood 5.4 g/dL (6.4-8.2)
--- NOTE | 2021-04-08 04:57 | NUR ---
SHIFT SUMMARY PATIENT ALERT AND ORIENTED THROUGHOUT SHIFT. VSS. ON 2L NC WITH OXYGEN SATURATION ABOVE 90%. PATIENT MEDICATED FOR CHEST PAIN, SEE PREVIOUS NOTE. NO OTHER EPISODES OF CHEST PAIN OR DISCOMFORT FOR REST OF SHIFT. HEPARIN GTT INFUSING, NO SIGNS OF BLEEDING. UROSTOMY DRAINING CLEAR/YELLOW URINE. PATIENT ABLE TO MAKE NEEDS KNOWN TO STAFF. NO OTHER SIGNIFICANT CHANGES. WILL CONTINUE TO MONITOR.
--- NOTE | 2021-04-08 11:47 | NUR ---
Pt sitting up in chair, talking with his son. States he feels great today because he had a shower. States he understands that he will be staying in the hospital until he has completed the course of antibiotics and his pneumonia is cleared up. Continuous oxymetry in place, as pt has hx of sleep apnea and uses a cpap at home. Encouraged him to have his bring in his home machine for use at night to help him sleep. He complains that he hasn't been able to sleep well the past few nights.
--- NOTE | 2021-04-08 11:53 | NUR ---
Spoke with pt's regarding home cpap machine; she states that the pt really doesn't use it when he has a lot of congestion, because he is not able to tolerate it except when he is feeling well. 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
--- NOTE | 2021-04-08 17:41 | NUR ---
Pt has not required any supplemental oxygen throughout the day. He walked into the bathroom this morning, attempted a BM but only had a lot of gas, then took a shower with PCT assistance, and since then has been sitting up in a chair in his room all day. Pleasantly conversant, without any complaints. Appetite good, urine draining clear yellow urine from the urostomy.
[2021-04-09 04:09] LABS: Hematocrit 29.2 % (37.0-53.0); Hemoglobin 9.8 g/dL (13.5-17.5); Mean Corpuscular HGB 29.8 pg (26.0-34.0); Mean Corpuscular HGB Conc 33.6 g/dL (31.5-36.5); Mean Corpuscular Volume 89 fL (80-100); Mean Platelet Volume 9.3 fL (9.1-12.4); NRBC ABSOLUTE 0.02 K/mm3 (0.00-0.02); NRBC Auto 0.2 /100 WBC (0.0-0.2); Platelet Count 203 K/mm3 (150-400); RDW Coefficient Variation 18.1 % (11.7-14.2); RDW Standard Deviation 59.2 fL (35.1-46.3); Red Blood Cell Count 3.29 M/mm3 (4.30-5.90)
[2021-04-09 04:33] LABS: BAND PERCENT MAN 4 % (0-8); BASOPHILS PERCENT MAN 0 % (0-2); EOSINOPHILS PERCENT MAN 0 % (0-6); LYMPHOCYTES ABSOLUTE MAN 0.38 K/mm3 (0.84-5.20); LYMPHOCYTES PERCENT MAN 4 % (21-46); MONOCYTES ABSOLUTE MAN 0.47 K/mm3 (0.16-1.47); MONOCYTES PERCENT MAN 5 % (4-13); MYELOCYTE ABSOLUTE MAN 0.28 K/mm3 (0.00-0.00); MYELOCYTE PERCENT MAN 3 % (0-0); NEUTROPHILS ABSOLUTE MAN 8.36 K/mm3 (1.96-9.15); SEG NEUTROPHILS PERCENT MAN 84 % (41-73); TOTAL CELLS COUNTED 100
--- NOTE | 2021-04-09 05:05 | NUR ---
SHIFT SUMMARY NO ACUTE CHANGES THIS SHIFT. PT A&OX4. C/O OF NEUROPATHY IN FEET. SP02>96% ON 2L NC WHILE SLEEPING. PT HAS DRY OCCASIONAL COUGH. TELEMETRY READS AFIB HR 90'S-120'S. PT DENIES CP THIS SHIFT. PT HAS UROSTOMY DRAINING CLEAR YELLOW URINE TO GRAVITY. EMPTIED MULTIPLE TIMES. NO BM THIS SHIFT. PT RECEVIED ORAL BOWEL CARE MEDICATION BUT REFUSED RECTAL MEDICATION. HEPARIN INFUSED PER EMAR. PT SLEPT OFF AND ON DURING SHIFT. CALL LIGHT IN REACH.
[2021-04-09 05:28] LABS: Alanine Aminotransfer (ALT/SGP 23 U/L (12-78); Albumin, Blood 2.6 g/dL (3.4-5.0); Albumin/Globulin Ratio 1.1 (0.8-1.8); Alk Phos 64 U/L (50-136); Anion Gap 8 mmol/L (6-16); Aspartate Aminotrans (AST/SGOT 19 U/L (12-37); Blood Urea Nitrogen 28 mg/dL (8-24); Bun/Creatinine Ratio 25.9 (12.0-20.0); CO2, Blood 28 mmol/L (21-32); Calcium, Blood 8.7 mg/dL (8.5-10.1); Chloride, Blood 104 mmol/L (98-108); Creatinine, Blood 1.08 mg/dL (0.60-1.20); Globulin, Blood 2.4 g/dL (2.2-4.0); Glomerular Filtration Rate >60 (60-); Glucose, Blood 223 mg/dL (70-99); Sodium, Blood 140 mmol/L (136-145)
--- NOTE | 2021-04-09 17:46 | NUR ---
VSS. AFEBRILE. NO C/O PAIN. UROSTOMY MAINTAINED- AUO. NO BM- PT C/O CONSTIPATION, PRN SUPPOSITORY AND SCHEDULED MEDS GIVEN. TOLERATING CURRENT DIET. WORKED WITH PT- SBA WITH FWW AND GAIT BELT. HEPARIN GTT MAINTAINED- NO S/S OF BLEEDING NOTED. FREQUENT ROUNDS TO ENSURE PT SAFETY. PT IN NO APPARENT DISTRESS AT THIS TIME. WILL CONTINUE TO MONITOR UNTIL TRANSFER OF CARE TO ONCOMING RN.
[2021-04-10 00:38] LABS: Hemoglobin 10.4 g/dL (13.5-17.5); Mean Corpuscular HGB 29.7 pg (26.0-34.0); Mean Corpuscular HGB Conc 33.5 g/dL (31.5-36.5); Mean Corpuscular Volume 89 fL (80-100); Mean Platelet Volume 9.2 fL (9.1-12.4); NRBC ABSOLUTE 0.04 K/mm3 (0.00-0.02); NRBC Auto 0.3 /100 WBC (0.0-0.2); Platelet Count 223 K/mm3 (150-400); RDW Standard Deviation 58.5 fL (35.1-46.3)
[2021-04-10 01:01] LABS: BAND PERCENT MAN 3 % (0-8); BASOPHILS PERCENT MAN 0 % (0-2); EOSINOPHILS PERCENT MAN 0 % (0-6); LYMPHOCYTES ABSOLUTE MAN 0.64 K/mm3 (0.84-5.20); LYMPHOCYTES PERCENT MAN 5 % (21-46); METAMYELOCYTE ABSOLUTE MAN 0.12 K/mm3 (0.00-0.00); METAMYELOCYTE PERCENT MAN 1 % (0-0); MONOCYTES ABSOLUTE MAN 0.12 K/mm3 (0.16-1.47); MONOCYTES PERCENT MAN 1 % (4-13); SEG NEUTROPHILS PERCENT MAN 90 % (41-73); TOTAL CELLS COUNTED 100
[2021-04-10 01:06] LABS: Calcium, Blood 8.8 mg/dL (8.5-10.1); Creatinine, Blood 1.23 mg/dL (0.60-1.20); Potassium, Blood 3.8 mmol/L (3.5-5.5)
--- NOTE | 2021-04-10 05:01 | NUR ---
SHIFT SUMMARY NO ACUTE CHANGES THIS SHIFT. PT AXO. REMAINS IN AFIB, PT TACHED UP TO 130'S BUT HAS SINCE SLOWED TO 100'S POST NOC METOPROLOL DOSE. PT REMAINS ON RA. PT REQUESTING ENEMA UPON SHIFT START, ENEMA PROVIDED, SUCCESFUL WITH LARGE BM. NO BLOOD NOTED. PT REMAINS ON HEPARIN GTT, NO BLEEDING NOTED. UROSTOMY DRAINING TO GRAVITY. PT STATES OVERALL IMPROVEMENT IN RESPIRATORY STATUS. OTHERWISE, PT RESTING IN BED T/O SHIFT.
--- NOTE | 2021-04-10 17:46 | NUR ---
VSS. AFEBRILE. NO C/O PAIN. UROSTOMY PRESENT WITH AUO. NO BM. TOLERATING CURRENT DIET. HEPARIN GTT MAINTAINED-TITRATED BY PHARMACY PER MOST CURRENT APTT VALUES. WORKED WITH PT- SBA UTILIZING GAIT BELT AND FWW, NO DESATS OR SOB/KING NOTED. FREQUENT ROUNDS TO ENSURE PT SAFETY. PT IN NO APPARENT DISTRESS AT THIS TIME. WILL CONTINUE TO MONITOR UNTIL TRANSFER OF CARE TO ONCOMING RN.
--- NOTE | 2021-04-11 05:53 | NUR ---
SHIFT SUMMARY NO ACUTE CHANGES THIS SHIFT VSS. REMAINS ON RA. AFIB, RATE CONTROLLED 90'S. HEP GTT CONTINUES TO INFUSE. PT UP TO CHAIR AND BACK TO BED. PT HAS STARTED TO COMPLAIN OF R HIP PAIN, HEAT PAD PLACED, LIDOCAIN PAD PLACED, TYLENOL GIVEN, LEGS ELEVATED. AWAITING TO SEE RESULTS OF THIS. UROSTOMY BAG IN PLACE, PATENT. NO BLOOD NOTED. OTHERWISE, PT RESTING OFF AND ON IN BED.
[2021-04-11 06:11] LABS: Mean Platelet Volume 9.9 fL (9.1-12.4); Platelet Count 205 K/mm3 (150-400)
[2021-04-11 08:27] LABS: Hemoglobin 10.4 g/dL (13.5-17.5); Mean Corpuscular HGB Conc 33.5 g/dL (31.5-36.5); Mean Corpuscular Volume 89 fL (80-100); Mean Platelet Volume 9.2 fL (9.1-12.4); NRBC ABSOLUTE 0.07 K/mm3 (0.00-0.02); NRBC Auto 0.4 /100 WBC (0.0-0.2); Platelet Count 218 K/mm3 (150-400); RDW Standard Deviation 58.5 fL (35.1-46.3); Red Blood Cell Count 3.47 M/mm3 (4.30-5.90); White Blood Cell Count 16.03 K/mm3 (4.00-11.30)
[2021-04-11 09:04] LABS: Bun/Creatinine Ratio 25.4 (12.0-20.0); Calcium, Blood 8.3 mg/dL (8.5-10.1); Creatinine, Blood 1.26 mg/dL (0.60-1.20); Potassium, Blood 3.9 mmol/L (3.5-5.5)
[2021-04-11 09:25] LABS: BASOPHILS PERCENT MAN 0 % (0-2); EOSINOPHILS PERCENT MAN 0 % (0-6); LYMPHOCYTES ABSOLUTE MAN 2.08 K/mm3 (0.84-5.20); LYMPHOCYTES PERCENT MAN 13 % (21-46); MONOCYTES ABSOLUTE MAN 0.64 K/mm3 (0.16-1.47); MONOCYTES PERCENT MAN 4 % (4-13); SEG NEUTROPHILS PERCENT MAN 83 % (41-73); TOTAL CELLS COUNTED 100
--- NOTE | 2021-04-11 12:42 | NUR ---
UPDATE: NOTIFIED DR. LILLY OF HYPOTENSION. NO NEW ORDERS PLACED, WILL ROUND AT BEDSIDE.
[2021-04-11 14:14] LABS: Albumin, Blood 2.3 g/dL (3.4-5.0); Bilirubin, Direct 0.4 mg/dL (0.0-0.3); Bilirubin, Total 1.4 mg/dL (0.1-1.0); Globulin, Blood 2.3 g/dL (2.2-4.0); Total Protein, Blood 4.6 g/dL (6.4-8.2); Troponin I 0.098 ng/mL (0.000-0.040)
--- NOTE | 2021-04-11 16:09 | NUR ---
UPDATE: PT TRANSFERED TO ICU D/T HYPOTENSION. CT ABD/PELVIS COMPLETED PRIOR TO TRANSFER. MERREM STARTED AND 2ND 1L NS BOLUS INFUSING (2 OF 3 1L NS BOLUS ORDERED). DURING AM PT COMPLAINED OF R LEG PAIN, TRAMADOL X1 GIVEN. REPORT PROVIDED TO RECEIVING RN. ALL BELONGINGS SENT WITH SPOUSE.
[2021-04-11 17:07] LABS: Hematocrit 21.2 % (37.0-53.0)
--- NOTE | 2021-04-11 19:00 | NUR ---
ASSUME CARE: PT LYING IN BED WITH FAMILY (, MARLA, AND DAUGHTER) AT BEDSIDE. LEVO INFUSING AT 18MCG/MIN AND HE IS RECEIVING THE 2ND UNIT OF PRBCS. HE IS A&O X4 AND LETHARGIC. ON 2L NC HE IS SATING >95%. HR IRREGULAR IN THE 130'S-160'S AND BP SOFT SO NEW ORDER OF VASOPRESSIN PLACED AND PENDING. UROSTOMY IN PATENT AND INTACT ON RIGHT ABDOMEN DRAINING CLEAR YELLOW URINE. RIGHT UPPER ARM PICC AND LEFT AC PERIPHERAL BOTH FLUSHING W/ C/D/I DRESSINGS. SKIN IS COOL, DRY, AND INTACT. HE COMPLAINS OF ABDOMINAL AND RIGHT HIP PAIN AND NAUSEA. STAT XRAY ORDERED AND COMING TO BEDSIDE. SEE SHIFT ASSESSMENT FOR DETAILS.
--- NOTE | 2021-04-11 19:27 | NUR ---
PT ARRIVED ON UNIT.... PT ARRIVED ON UNIT AT 1600, PT WAS PULLED OVER ON THE BED WITH SLIDER SHEET AND 4 STAFF. THE PT WAS BROUGHT TO THE ICU FOR HYPOTENSION THAT WAS NOT RESPONDING TO FLUID BOLUSES. A PICC LINE WAS PLACED BY PICC RN AND LEVOPHED WAS STARTED. THE PT'S LEVOPHED WAS TITRATED TO KEEP MAPS >60 (SEE ICU FLOW SHEET.) THE PT WAS IN AFIB IN THE LOW 100'S. NO EDEMA NOTED ON ASSESSMENT. THE PT WAS ON RA WITH L/S CLEAR T/O. BT HYPOACTIVE, ABD MODERATE DISTENTION AND PAINFUL TO PALP. PT WAS ALSO C/O OF SEVERE PAIN TO THE RIGHT HIP. THE PT WAS VERY PALE AND DIAPHORETIC. DR. LILLY AT THE BEDSIDE TO NOTIFIED THIS RN AND THE PT AND HIS THAT THE PT HAS A RETROPERITONEAL BLEED. AN ORDER FOR 2 UNTIS OF PRCBs WAS GIVEN AND PLACED. THE PT'S HR DURING THIS TIME HAD INCREASED TO AFIB W/RVR IN THE 130'S-150'S TOUCHING INTO THE 170'S AT TIMES. DURING THIS TIME THE PT STARTED C/O OF CHEST PAIN, THIS INCREASED TO A 3/10 PAIN PER THE PT. AN EKG WAS OBTAINED. A UNIT OF UNIVERSAL PRBCs WAS OBTAINED FROM THE BLOOD BANK AND GIVEN VIA WARMER, A SECOND UNIT OF MATCHED BLOOD WAS STARTED AFTER THE FIRST. THE PT ALSO HAD NAUSEA AFTER THE FIRST UNIT OF PRBCs WAS TRANSFUSED, THE PT WAS MEDICATED WITH ZOFRAN WITH GOOD RESUTLS. APROX HALF WAY THROUGH THE SECOND UNIT OF PRBCs THE PT'S BP STARTED TO DROP AGAIN, THE LEVOPHED WAS INCREASED TO 18MCG AND THE ICU PROVIDER WAS CALLED. AN ORDER FOR VASOPRESSIN WAS OBATAINED. REPORT WAS GIVEN TO THE ONCOMING RN. UPDATED BY THIS RN UPON HIS ARRIVAL.
--- NOTE | 2021-04-11 20:00 | NUR ---
DR. VALLADARES AT BEDSIDE DR. VALLADARES AT BEDSIDE SPEAKING WITH FAMILY IN REGARDS TO PLAN. PLACING ORDERS FOR AMIODARONE AND MORE NAUSEA MEDICATION.
--- NOTE | 2021-04-11 22:10 | NUR ---
NAUSEA RX SPOKE WITH DR. VALLADARES TO FOLLOW UP ON ADDITIONAL NAUSEA MEDICATION FOR PT SINCE HIS CURRENT ZOFRAN WAS ONLY FOR Q6HR. HE ORDERED PHENERGAN 12.5-25MG Q4HR PRN NAUSEA.
[2021-04-11 22:29] LABS: Hematocrit 29.6 % (37.0-53.0); Hemoglobin 9.9 g/dL (13.5-17.5)
[2021-04-12 02:43] LABS: Hemoglobin 9.4 g/dL (13.5-17.5); Mean Corpuscular HGB Conc 33.6 g/dL (31.5-36.5); Mean Corpuscular Volume 90 fL (80-100); Mean Platelet Volume 10.3 fL (9.1-12.4); NRBC ABSOLUTE 0.67 K/mm3 (0.00-0.02); NRBC Auto 2.1 /100 WBC (0.0-0.2); Platelet Count 256 K/mm3 (150-400); RDW Coefficient Variation 17.2 % (11.7-14.2); Red Blood Cell Count 3.13 M/mm3 (4.30-5.90); White Blood Cell Count 32.58 K/mm3 (4.00-11.30)
[2021-04-12 02:57] LABS: Calcium, Blood 7.6 mg/dL (8.5-10.1); Creatinine, Blood 1.77 mg/dL (0.60-1.20)
[2021-04-12 03:20] LABS: BAND PERCENT MAN 2 % (0-8); BASOPHILS PERCENT MAN 0 % (0-2); EOSINOPHILS PERCENT MAN 0 % (0-6); LYMPHOCYTES ABSOLUTE MAN 2.28 K/mm3 (0.84-5.20); LYMPHOCYTES PERCENT MAN 7 % (21-46); MONOCYTES ABSOLUTE MAN 3.58 K/mm3 (0.16-1.47); MONOCYTES PERCENT MAN 11 % (4-13); NEUTROPHILS ABSOLUTE MAN 26.71 K/mm3 (1.96-9.15); SEG NEUTROPHILS PERCENT MAN 80 % (41-73); TOTAL CELLS COUNTED 100
--- NOTE | 2021-04-12 06:13 | NUR ---
SHIFT SUMMARY: PT LYING IN BED ON 2L NC SATING 99%. LEVO INFUSING AT 16MCG/MIN, VASO AT 0.04UNIT/MIN, AMIO 0.5MG/MIN, AND NS AT 100ML/HR. HR HAS BEEN BTW 100-110'S AND MAP HAS BEEN BTW 68-80. UROSTOMY STILL IN PLACE DRAINING CLEAR YELLOW URINE TO GRAVITY.
[2021-04-12 06:25] LABS: Hematocrit 27.4 % (37.0-53.0); Hemoglobin 9.4 g/dL (13.5-17.5)
--- NOTE | 2021-04-12 07:57 | NUR ---
AM NOTE... ASSUMED CARE OF PT AT 0700. PT IS A&Ox4. PT CURRENTLY DENIES ANY PAIN ALSO DENIES ANY CHEST PAIN AT THIS TIME. PT IS IN AFIB W/RVR IN THE 100'S-120'S AMIO GTT RUNNING AT 0.5MG/HR. LEVOPHED IS CURRENTLY AT 16MCG AND VASOPRESSIN IS AT 0.04UNITS WITH MAPS >60. TRACE EDEMA NOTED TO THE PT'S BLE, PULSES WEAK BUT PALPABLE. PT IS ON 2L NC WITH O2 SATS >90% L/S CLEAR IN THE UPPER LOBES DIM IN THE LOWER LOBES. THE PT DENIES ABD PAIN, MODERATE DISTENTION, ABD IS NONTENDER TO PALP. UROSTOMY IS PATENT AND DRAINING TO GRAVITY. PT CURRENTLY DENIES ANY N/V AT THIS TIME. CALL LIGHT IN REACH WILL CONTINUE TO MONITOR.
[2021-04-12 10:11] LABS: Hematocrit 25.5 % (37.0-53.0); Hemoglobin 8.4 g/dL (13.5-17.5)
--- NOTE | 2021-04-12 18:18 | NUR ---
SHIFT SUMMARY... NO ACUTE NEGATIVE CHANGES NOTED THIS SHIFT. THE VASOPRESSIN WAS TAKEN OFF SINCE 1200. THE LEVOPHED HAS BEEN TITRATED FROM 16MCG DOWN TO 4MCG WITH MAPS >60. THE PT'S HR HAS BEEN AFIB IN THE 80'S-100'S. THE PT HAS BEEN ON RA FOR MOST OF THIS SHIFT UNLESS HE IS SLEEPING THEN 2L NC TO KEEP HIS O2 SATS >90%. THE PT HAS DENIED ANY CHEST PAIN OR ABD PAIN THIS SHIFT. THE PT HAS SLEPT SEVERAL HOURS THIS AFTERNOON. THE PT'S AND SON WERE AT THE BEDSIDE FOR VISITING HOURS. THE PT'S UROSTOMY DRAINED 350MLS OF DARK YELLOW URINE THIS SHIFT. THE PT DID NOT HAVE A BM. THE PT ATE A SMALL BOWL OF CEREAL AND REFUSED ALL OTHER MEALS. THE PT HAS REFUSED SEVERAL TURNS THIS SHIFT, HE WAS EDUCATED ON PRESSURE ULCER PREVENTION AND SKIN BREAKDOWN ISSUES. PT VERBALIZED HIS UNDERSTANDING BUT STILL REFUSED TURNS. CALL LIGHT IN REACH WILL CONTINUE TO MONITOR UNTIL REPORT IS GIVEN TO ONCOMING RN.
--- NOTE | 2021-04-12 19:00 | NUR ---
ASSUME CARE: PT LYING IN BED W/ EYES CLOSED APPEARING TO BE RESTING COMFORTABLY. ON RA HE IS SATING 92%, HR 100, AND MAP 60. HE IS AROUSABLE AND A&O X3. HE DENIES PAIN AND IS AFEBRILE. LEVO CURRENTLY INFUSING AT 8MCG/KG/MIN AND NS AT 50ML/HR. UROSTOMY IN PLACE ON RT ABDOMEN AND IS DRAINING YELLOW URINE. SKIN IS COOL, DRY, AND INTACT W/ RIGHT GREAT TOE AMPUTATED. HE HAS NO CURRENT COMPLAINTS OR REQUESTS. SEE SHIFT ASSESSMENT FOR DETAILS.
[2021-04-12 20:23] LABS: Hematocrit 20.4 % (37.0-53.0)
--- NOTE | 2021-04-12 20:38 | NUR ---
HH INFORMED DR. CARPENTER THAT PT'S HGB IS 7.0 FROM 8.4 THIS MORNING. ALSO HAVE INCREASED HIS LEVO FROM 3MCG/MIN TO 8MCG/MIN. HE ORDERED 1 UNIT PRBC AND Q4 HH X4.
[2021-04-13 02:24] LABS: BASOPHILS ABSOLUTE AUTO 0.04 K/mm3 (0.00-0.23); BASOPHILS PERCENT AUTO 0 % (0-2); EOSINOPHILS PERCENT AUTO 0 % (0-6); Hematocrit 25.3 % (37.0-53.0); Hemoglobin 8.8 g/dL (13.5-17.5); IMMATURE GRAN ABSOLUTE AUTO 0.95 K/mm3 (0.00-0.10); IMMATURE GRAN PERCENT AUTO 4 % (0-1); LYMPHOCYTES ABSOLUTE AUTO 1.58 K/mm3 (0.84-5.20); LYMPHOCYTES PERCENT AUTO 7 % (21-46); MONOCYTES PERCENT AUTO 8 % (4-13); Mean Corpuscular HGB 30.2 pg (26.0-34.0); Mean Corpuscular HGB Conc 34.8 g/dL (31.5-36.5); Mean Corpuscular Volume 87 fL (80-100); Mean Platelet Volume 10.1 fL (9.1-12.4); NEUTROPHILS ABSOLUTE AUTO 19.49 K/mm3 (1.96-9.15); NEUTROPHILS PERCENT AUTO 81 % (41-73); NRBC ABSOLUTE 0.16 K/mm3 (0.00-0.02); NRBC Auto 0.7 /100 WBC (0.0-0.2); Platelet Count 206 K/mm3 (150-400); RDW Coefficient Variation 16.5 % (11.7-14.2); Red Blood Cell Count 2.91 M/mm3 (4.30-5.90); White Blood Cell Count 24.06 K/mm3 (4.00-11.30)
[2021-04-13 02:42] LABS: Bun/Creatinine Ratio 29.3 (12.0-20.0); Calcium, Blood 7.7 mg/dL (8.5-10.1); Creatinine, Blood 1.81 mg/dL (0.60-1.20); Potassium, Blood 4.5 mmol/L (3.5-5.5)
[2021-04-13 06:10] LABS: Hematocrit 24.2 % (37.0-53.0); Hemoglobin 8.4 g/dL (13.5-17.5)
--- NOTE | 2021-04-13 06:39 | NUR ---
SHIFT SUMMARY: PT RESTING IN BED QUIETY. HE IS EASILY AROUSABLE AND ALERT AND ORIENTED. HE DENIES PAIN AND HAS BEEN AFEBRILE. OVERNIGHT HE RECEIVED 1 UNIT OF PRBCS FOR A HGB OF 7.0 WHICH HAS COME UP TO 8.4 THIS AM. WHILE SLEEPING, HE REQUIRES 2L NC AND SATS >95%. HR HAS BEEN FROM 90-150'S. HE HAS BEEN HYPOTENSIVE T/O THE SHIFT SO LEVO HAS BEEN TITRATED UP TO 12MCG/MIN. NS CONTINUES TO INFUSE AT 50ML/HR. UROSTOMY REMAINS IN PLACE DRAINING YELLOW URINE TO GRAVITY. NO BM THIS SHIFT. WILL REPORT TO ONCOMING RN WHEN AVAILABLE.
--- NOTE | 2021-04-13 08:49 | NUR ---
AM NOTE... ASSUMED CARE OF PT AT 0700. THE PT IS A&Ox4. THE PT'S LEVOPHED WAS ON AT 12MCG THIS AM WITH PT'S MAPS >65. THE PT IS IN AFIB W/RVR IN THE 120'S-150'S. 1+ EDEMA NOTED TO THE BLE. THE PT IS ON RA WITH O2 SATS >90% L/S CLEAR T/O DIM IN THE BASES. THE PT DENIES ANY ABD PAIN OR CHEST PAIN AT THIS TIME. THE PT'S UROSTOMY IS DRAINING WELL TO GRAVITY. THE PT IS ABLE TO REAVES WEAKLY. THE PT SAT UP IN HIS BED FOR BREAKFAST. CALL LIGHT IN REACH WILL CONTINUE TO MONITOR.
--- NOTE | 2021-04-13 09:53 | NUR ---
Telephone call with pt's Kendra this morning. Plan set for meeting with Kendra and daughter Mely at 1630 today, just to touch base, talk about possible goals for discharge. At this point, both pt and his agree for him to go home upon discharge with assistance of either HH or Hospice; whichever service is most appropriate at time of discharge. Both pt and understand the seriousness of pt's current condition, and are approaching it with a positive yet realistic view of pt's health status, and goals for outcome.
--- NOTE | 2021-04-13 11:56 | NUR ---
Met. Pt. lying in bed resting, pt. reports of little improvement in his health ane requested to be anointed, his request was granted : reconciliation and the anointing,encouraged and given spiritual support and prayers.
[2021-04-13 13:49] LABS: Hematocrit 22.5 % (37.0-53.0); Hemoglobin 7.8 g/dL (13.5-17.5)
--- NOTE | 2021-04-13 15:04 | NUR ---
Today I faxed over complete packet to [facility] for possible SNF placement. Per chart review with Dr. Thibodeaux, patient is not appropriate for discharge.
--- NOTE | 2021-04-13 17:52 | NUR ---
SHIFT SUMMARY... NO ACUTE NEGATIVE CHANGES NOTED THIS SHIFT, THE LEVOPHED HAS BEEN OFF SINCE 1230, THE PT'S MAPS HAVE BEEN >60. THE PT'S HR HAS IMPROVED FROM THE 120'S-150'S TO THE 80'S TO LOW 100'S. THE PT HAS BEEN ON RA T/O THE SHIFT WITH O2 SATS >90%. THE PT WORKED WITH PT/OT AND GOT UP TO THE CHAIR WITH MOD ASSIST, THE LIFT WAS USED TO GET THE PT BACK INTO BED. THE PT'S AND DAUGHTER ARE MEETING WITH PALLIATIVE CARE ABOUT DISCHARGE PLANS. THE PT HAS DENIED ANY CHEST PAIN THIS SHIFT, THE PT DOSE C/O OF ABD PAIN AND RIGHT HIP PAIN WITH COUGHING. CALL LIGHT IN REACH WILL CONTINUE TO MONITOR UNTIL REPORT IS GIVEN TO ONCOMING RN.
[2021-04-13 18:03] LABS: Hematocrit 21.4 % (37.0-53.0); Hemoglobin 7.4 g/dL (13.5-17.5)
--- NOTE | 2021-04-13 19:16 | NUR ---
ASSUMED CARE OF PT AT 1915. REPORT RECEIVED AT BEDSIDE. PT PRESENTS IN BED. SLEEPING. NO DISTRESS TO NOTE. WILL REVIEW CHART AND PLAN OF CARE FOR THIS PT.
--- NOTE | 2021-04-13 20:50 | NUR ---
PT IN PROCESS OF RECEIVING TRANSFUSION OF PRBC'S. PT TEACHING DONE ON S/S TRANSFUSION REACTIONS. PT HAS HAD PREVIOUS TRANSFUSIONS WITHOUT ISSUES. PT VERBALIZES UNDERSTANDING. NO S/S TRANSFUSION REACTION AT THIS TIME. PT DENIES COMPLAINTS AT THIS TIME. WILL CONTINUE TO MONITOR.
--- NOTE | 2021-04-14 00:58 | NUR ---
PLACED PT TO 2 L/M O2 PER NASAL CANNULA. WHEN PT ASLEEP HE DEMONSTRATES A SLEEP APNEIC TYPE BREATHING PATTERN WHICH TRENDS PT DOWN TO 86-87 PERCENT. WITH O2 PT MAINTAINS > 90 PERCENT. PT ALSO SHOWING SOME BLOOD PRESSURES THAT ARE POSITIONAL TO WHERE PT HAS HIS ARM WHILE SLEEPING. WILL MONITOR.
[2021-04-14 04:22] LABS: BASOPHILS ABSOLUTE AUTO 0.01 K/mm3 (0.00-0.23); BASOPHILS PERCENT AUTO 0 % (0-2); EOSINOPHILS ABSOLUTE AUTO 0.01 K/mm3 (0.00-0.68); EOSINOPHILS PERCENT AUTO 0 % (0-6); Hematocrit 22.6 % (37.0-53.0); Hemoglobin 7.6 g/dL (13.5-17.5); IMMATURE GRAN ABSOLUTE AUTO 0.48 K/mm3 (0.00-0.10); IMMATURE GRAN PERCENT AUTO 3 % (0-1); LYMPHOCYTES ABSOLUTE AUTO 1.35 K/mm3 (0.84-5.20); LYMPHOCYTES PERCENT AUTO 10 % (21-46); MONOCYTES ABSOLUTE AUTO 1.57 K/mm3 (0.16-1.47); MONOCYTES PERCENT AUTO 11 % (4-13); Mean Corpuscular HGB 29.6 pg (26.0-34.0); Mean Corpuscular HGB Conc 33.6 g/dL (31.5-36.5); Mean Corpuscular Volume 88 fL (80-100); Mean Platelet Volume 9.7 fL (9.1-12.4); NEUTROPHILS ABSOLUTE AUTO 10.68 K/mm3 (1.96-9.15); NEUTROPHILS PERCENT AUTO 76 % (41-73); NRBC ABSOLUTE 0.06 K/mm3 (0.00-0.02); NRBC Auto 0.4 /100 WBC (0.0-0.2); Platelet Count 127 K/mm3 (150-400); RDW Coefficient Variation 16.6 % (11.7-14.2); Red Blood Cell Count 2.57 M/mm3 (4.30-5.90)
[2021-04-14 04:37] LABS: Calcium, Blood 8.1 mg/dL (8.5-10.1); Creatinine, Blood 1.43 mg/dL (0.60-1.20); Potassium, Blood 4.2 mmol/L (3.5-5.5)
--- NOTE | 2021-04-14 05:05 | NUR ---
PT HAS BEEN ABLE TO REST THIS NIGHT. NO ACTIVE S/S BLEEDING TO NOTE. PT HAS RECEIVED 1 UNIT PRBC'S THIS SHIFT WITHOUT S/S TRANSFUSION REACTIONS. WILL CONTINUE TO MONITOR PT, AND WILL REPORT OFF TO ONCOMING RN.
--- NOTE | 2021-04-14 07:15 | NUR ---
Assumed care. Report received from nightshift RN. Pt sleeping in bed at this time. On 1 oxygen, 1 L/min via NC. Urostomy in place, draining yellow urine. No acute needs noted at this time, will continue to monitor.
--- NOTE | 2021-04-14 12:48 | NUR ---
Met pt at lunch he is doing much better offered prayers and spiritual support.
[2021-04-14 14:25] LABS: Hematocrit 24.9 % (37.0-53.0); Hemoglobin 8.6 g/dL (13.5-17.5)
--- NOTE | 2021-04-14 18:48 | NUR ---
Shift summary. Pt resting in room, on 02 at 1 L/min via NC. Pt rested throughout shift, up to recliner for much of the afternoon. Pt able to stand with assistance to transfer. Pt received additional unit of PRBCs this am. See shift assessment for further details, will continue to monitor and report off to nightshift RN.
[2021-04-15 03:36] LABS: BASOPHILS ABSOLUTE AUTO 0.04 K/mm3 (0.00-0.23); BASOPHILS PERCENT AUTO 0 % (0-2); EOSINOPHILS ABSOLUTE AUTO 0.01 K/mm3 (0.00-0.68); EOSINOPHILS PERCENT AUTO 0 % (0-6); Hematocrit 22.5 % (37.0-53.0); Hemoglobin 7.9 g/dL (13.5-17.5); IMMATURE GRAN ABSOLUTE AUTO 0.81 K/mm3 (0.00-0.10); IMMATURE GRAN PERCENT AUTO 5 % (0-1); LYMPHOCYTES ABSOLUTE AUTO 1.39 K/mm3 (0.84-5.20); LYMPHOCYTES PERCENT AUTO 9 % (21-46); MONOCYTES ABSOLUTE AUTO 1.69 K/mm3 (0.16-1.47); MONOCYTES PERCENT AUTO 10 % (4-13); Mean Corpuscular HGB 30.4 pg (26.0-34.0); Mean Corpuscular HGB Conc 35.1 g/dL (31.5-36.5); Mean Corpuscular Volume 87 fL (80-100); NEUTROPHILS ABSOLUTE AUTO 12.25 K/mm3 (1.96-9.15); NEUTROPHILS PERCENT AUTO 76 % (41-73); NRBC ABSOLUTE 0.11 K/mm3 (0.00-0.02); NRBC Auto 0.7 /100 WBC (0.0-0.2); Platelet Count 127 K/mm3 (150-400); RDW Coefficient Variation 16.4 % (11.7-14.2); White Blood Cell Count 16.19 K/mm3 (4.00-11.30)
[2021-04-15 03:51] LABS: Bun/Creatinine Ratio 32.5 (12.0-20.0); Calcium, Blood 8.2 mg/dL (8.5-10.1); Creatinine, Blood 1.2 mg/dL (0.60-1.20); Potassium, Blood 4.3 mmol/L (3.5-5.5)
--- NOTE | 2021-04-15 05:33 | NUR ---
SUMMARY: NEURO- A/OX4 PLEASANT AND FOLLOWS COMMANDS. ABLE TO SWALLOW AND TAKE PILLS. REAVES. WEAK BLE, MOD STRENGTH IN BUE. WAS ABLE TO HELP PULL SELF UP IN BED. COMPLAINED OF RIB PAIN ONE TIME. PT REPOSITIONED AND PAIN RELIEVED. CV- AFIB HR 100-120. BP WNL. PALPABLE PULSES. CAP REFILL GOOD RESP. WNL. GOOD PRODUCTIVE COUGH ON ROOM AIR. GI. BM DURING DAY SHIFT YESTERDAY. BOWEL MEDS PASSED, ACTIVE BS. GOOD APETITE. . UROSTOMY DRAINING WELL. CLEAR YELLOW. SKIN UNCHANGED. PICC IN MARI. UROSTOMY WNL. WILL CONTINUE TO MONITOR.
--- NOTE | 2021-04-15 07:41 | NUR ---
Assumed care. Report received from nightshift RN. Pt resting in bed at this time, on room air. Alert and oriented, call light within reach. Vital signs stable, no acute needs at this time. Will continue to monitor.
[2021-04-15 15:12] LABS: Hematocrit 24.7 % (37.0-53.0); Hemoglobin 8.3 g/dL (13.5-17.5)
--- NOTE | 2021-04-15 18:22 | NUR ---
Shift summary. Pt resting bed, son at bedside. On room air, stable vital signs throughout shift. Call light within reach. Pt up to recliner for much of shift, PT this am. Pt was able to transfer himself to bed from chair without assistance today, he is very motivated to try to avoid a retirement facility. No acute needs at this time, will continue to monitor and report off to nightshift RN.
--- NOTE | 2021-04-15 19:53 | NUR ---
bed side commode pt transfered to bed side commode as a stand by assist. only needed help scooting to edge of bed to stand. 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 steady on feet for the few steps he took. no BM. just gas.
[2021-04-16 05:53] LABS: BASOPHILS ABSOLUTE AUTO 0.04 K/mm3 (0.00-0.23); BASOPHILS PERCENT AUTO 0 % (0-2); EOSINOPHILS ABSOLUTE AUTO 0.08 K/mm3 (0.00-0.68); EOSINOPHILS PERCENT AUTO 1 % (0-6); Hematocrit 22.6 % (37.0-53.0); Hemoglobin 7.6 g/dL (13.5-17.5); IMMATURE GRAN ABSOLUTE AUTO 0.88 K/mm3 (0.00-0.10); IMMATURE GRAN PERCENT AUTO 6 % (0-1); LYMPHOCYTES ABSOLUTE AUTO 1.77 K/mm3 (0.84-5.20); LYMPHOCYTES PERCENT AUTO 11 % (21-46); MONOCYTES ABSOLUTE AUTO 1.51 K/mm3 (0.16-1.47); MONOCYTES PERCENT AUTO 10 % (4-13); Mean Corpuscular HGB 30.4 pg (26.0-34.0); Mean Corpuscular HGB Conc 33.6 g/dL (31.5-36.5); Mean Corpuscular Volume 90 fL (80-100); Mean Platelet Volume 10.5 fL (9.1-12.4); NEUTROPHILS ABSOLUTE AUTO 11.41 K/mm3 (1.96-9.15); NEUTROPHILS PERCENT AUTO 73 % (41-73); NRBC ABSOLUTE 0.25 K/mm3 (0.00-0.02); NRBC Auto 1.6 /100 WBC (0.0-0.2); Platelet Count 142 K/mm3 (150-400); RDW Coefficient Variation 16.2 % (11.7-14.2); White Blood Cell Count 15.69 K/mm3 (4.00-11.30)
[2021-04-16 06:03] LABS: Anion Gap 5 mmol/L (6-16); Blood Urea Nitrogen 30 mg/dL (8-24); Bun/Creatinine Ratio 26.1 (12.0-20.0); CO2, Blood 30 mmol/L (21-32); Calcium, Blood 8.5 mg/dL (8.5-10.1); Chloride, Blood 104 mmol/L (98-108); Creatinine, Blood 1.15 mg/dL (0.60-1.20); Glomerular Filtration Rate >60 (60-); Glucose, Blood 114 mg/dL (70-99); Sodium, Blood 139 mmol/L (136-145)
--- NOTE | 2021-04-16 06:07 | NUR ---
SUMMARY: NEURO- INTACT. WNL REAVES STRONG CV- AFIB BP STABLE. RESP- 2LNC FOR APNEA OVER NIGHT DESAT TO 83%. CLEAR T/O GI- SAT ON COMMODE, JUST GAS. BOWEL MEDS GIVEN. ACTIVE BS. GOOD APETITE. - BERTRAM SEDIMENT 1. 7L OUT FOR SHIFT. UROSTOMY SITE WNL. SKIN NO CHANGES.
--- NOTE | 2021-04-16 09:00 | NUR ---
ASSUMED CARE REPORT RECIEVED. PT IS AWAKE, ALERT, AND ORIENTED. PT ANSWERS QUESTIONS APPROPRIATELY. PT COMPLAINS OF MILD HEAD ACHE, IMPROVING WITH TYLENOL. VITAL SIGNS STABLE. PT ON ROOM AIR. PICC TO MARI SALINE LOCKED. UROSTOMY C/D/I, YELLOW OUTPUT NOTED. PT UP TO RECLINER CHAIR WITH MINIMAL ASSISTANCE FROM PHYSICAL THERAPY. WILL CONTINUE TO MONITOR.
--- NOTE | 2021-04-16 13:07 | NUR ---
Pt. to room #230, via w/c, at 1300. Pivot transfer with fww from w/c to bed with minimal assist. Alert and oriented, call light given and instructed pt. to use for any needs, concerns, complaints. Urostomy to gravity bag, patent, with clear yellow urine. On room air, no shortness of breath noted.
--- NOTE | 2021-04-16 15:14 | NUR ---
TELEMETRY REPORT SHOWS AFIB IN SR. SCD'S PLACED ON BILAT. LE'S. FAMILY IN TO VISIT. ULTRAM GIVEN FOR HEADACHE EARLIER AND PT. VERBALIZE RELIEF.
[2021-04-17 04:45] LABS: Hematocrit 24.1 % (37.0-53.0); Mean Corpuscular HGB 30.2 pg (26.0-34.0); Mean Corpuscular HGB Conc 33.2 g/dL (31.5-36.5); Mean Corpuscular Volume 91 fL (80-100); Mean Platelet Volume 10.4 fL (9.1-12.4); NRBC ABSOLUTE 0.56 K/mm3 (0.00-0.02); NRBC Auto 3.7 /100 WBC (0.0-0.2); Platelet Count 145 K/mm3 (150-400); RDW Coefficient Variation 15.9 % (11.7-14.2); RDW Standard Deviation 51.8 fL (35.1-46.3); Red Blood Cell Count 2.65 M/mm3 (4.30-5.90); White Blood Cell Count 15.17 K/mm3 (4.00-11.30)
--- NOTE | 2021-04-17 05:25 | NUR ---
SHIFT SUMMARY PT AOX4. MILD HYPOTENSIVE THIS MORNING BUT ASYMPTOMATIC. PT SLEPT GOOD OVERNIGHT. HGB IMPROVED FROM 7.6 TO 8. PT DENIES DIZZINESS/LIGHTHEADEDNESS. PT STS "I FEEL A LOT BETTER TODAY." UROSTOMY ON GRAVITY, DRAINING WELL WITH AN OUTPUT OF 1300ML. TELE ON AFIB AT 90'S. PT ON ROOM AIR SATURATING AT 93%. PT REPOSITIONED HIMSELF AT NIGHT. HEMATOMA ON L SIDE/HIP UNCHANGED. SCD'S IN PLACED. PICC ON MARI. CALL LIGHT WITHIN REACH. WILL PROVIDE REPORT TO ONCOMING NURSE.
[2021-04-17 06:00] LABS: BAND PERCENT MAN 1 % (0-8); BASOPHILS PERCENT MAN 0 % (0-2); EOSINOPHILS ABSOLUTE MAN 0.15 K/mm3 (0.00-0.68); EOSINOPHILS PERCENT MAN 1 % (0-6); LYMPHOCYTES ABSOLUTE MAN 1.66 K/mm3 (0.84-5.20); LYMPHOCYTES PERCENT MAN 11 % (21-46); METAMYELOCYTE ABSOLUTE MAN 0.15 K/mm3 (0.00-0.00); METAMYELOCYTE PERCENT MAN 1 % (0-0); MONOCYTES ABSOLUTE MAN 1.06 K/mm3 (0.16-1.47); MONOCYTES PERCENT MAN 7 % (4-13); MYELOCYTE PERCENT MAN 2 % (0-0); NEUTROPHILS ABSOLUTE MAN 11.83 K/mm3 (1.96-9.15); SEG NEUTROPHILS PERCENT MAN 77 % (41-73); TOTAL CELLS COUNTED 100
[2021-04-17 06:34] LABS: Bun/Creatinine Ratio 22.3 (12.0-20.0); Calcium, Blood 8.3 mg/dL (8.5-10.1); Creatinine, Blood 1.21 mg/dL (0.60-1.20); Potassium, Blood 3.7 mmol/L (3.5-5.5)
--- NOTE | 2021-04-17 18:35 | NUR ---
SHIFT SUMMARY PT A/O X4; PLEASANT AND COOPERATIVE WITH CARE. PT REPORTS FEELING MUCH BETTER TODAY AND IS WORKING HARD WITH PHYSICAL THERAPY IN ORDER TO GO HOME W/HH RATHER THAN GO BACK TO SNF. PT TO DC TOMORROW. VSS. WILL REPORT TO STEVEN SULLIVAN.
[2021-04-18 05:15] LABS: Hematocrit 26.1 % (37.0-53.0); Hemoglobin 8.5 g/dL (13.5-17.5); Mean Corpuscular HGB Conc 32.6 g/dL (31.5-36.5); Mean Corpuscular Volume 92 fL (80-100); Mean Platelet Volume 10.4 fL (9.1-12.4); NRBC ABSOLUTE 0.71 K/mm3 (0.00-0.02); NRBC Auto 4.2 /100 WBC (0.0-0.2); Platelet Count 163 K/mm3 (150-400); RDW Coefficient Variation 16.4 % (11.7-14.2); RDW Standard Deviation 51.9 fL (35.1-46.3); Red Blood Cell Count 2.83 M/mm3 (4.30-5.90); White Blood Cell Count 16.99 K/mm3 (4.00-11.30)
[2021-04-18 05:54] LABS: BAND PERCENT MAN 4 % (0-8); BASOPHILS PERCENT MAN 0 % (0-2); EOSINOPHILS PERCENT MAN 0 % (0-6); LYMPHOCYTES ABSOLUTE MAN 1.18 K/mm3 (0.84-5.20); LYMPHOCYTES PERCENT MAN 7 % (21-46); METAMYELOCYTE ABSOLUTE MAN 0.16 K/mm3 (0.00-0.00); METAMYELOCYTE PERCENT MAN 1 % (0-0); MONOCYTES ABSOLUTE MAN 0.67 K/mm3 (0.16-1.47); MONOCYTES PERCENT MAN 4 % (4-13); MYELOCYTE ABSOLUTE MAN 0.33 K/mm3 (0.00-0.00); MYELOCYTE PERCENT MAN 2 % (0-0); NEUTROPHILS ABSOLUTE MAN 14.61 K/mm3 (1.96-9.15); SEG NEUTROPHILS PERCENT MAN 82 % (41-73); TOTAL CELLS COUNTED 100
[2021-04-18 06:19] LABS: Calcium, Blood 8.1 mg/dL (8.5-10.1); Creatinine, Blood 1.19 mg/dL (0.60-1.20); Potassium, Blood 3.5 mmol/L (3.5-5.5)
--- NOTE | 2021-04-18 08:26 | NUR ---
SUMMARY PT HOPING FOR DISCHARGE TODAY? REFUSED MIRALAX AND ASKS FOR SENNA OR FLEETS. DAY RN AWARE OF REQUEST PER REPORT.
--- NOTE | 2021-04-18 13:06 | NUR ---
SPOKE WITH [facility]OS GAMING PIT BOSS RN AT THIS TIME. PT MED REC AND RECORDS FAXED TO OFFICE. TO CONTACT PT CONCERNING CARE ON TUESDAY. WILL MAKE PT AND PT FAMILY AWARE.
[2021-04-18] MEDS ORDERED: Isosorbide Mono30 MG PO (13:17)
[2021-04-18] MEDS ORDERED: METO25 PO (13:18)
[2021-04-18] MEDS ORDERED: POLYETHYLENE G500 G1 PO (13:32)
[2021-04-18] MEDS ORDERED: DULCOLAX400 MG/5 M PO (13:33)
[2021-04-18] MEDS ORDERED: METF500 PO (13:35)
[2021-04-18] MEDS ORDERED: HYDCOR10 PO (13:36)
--- NOTE | 2021-04-18 15:27 | NUR ---
DISCHARGE: PACKET PRINTED AND PT/PT EDUCATED. MEDS FAXED TO [place]. PICC LINE DC'D BY SAILING OFFICERSULAIMAN. PT LEFT UNIT VIA WHEELCHAIR WITH ABLE BODIED SEAMANSEFERINO AND AT ABOUT 1520
--- NOTE | 2021-04-20 07:56 | NUR ---
Per chart review with Dr. Chakraborty, patient appropriate for discharge on 04/20/2021. Patient denied barriers and feels safe to return to his home with his , Kendra Shen. I plan to call to schedule a hospital follow up this morning and contact Summer with [facility] to set up home health services for
== END 2021-04-18 15:24 | disposition home health service (06) | DRG 871 ==
LOC: ER 22:41 → PCU 04-04 02:45 → ERHOLD 04-04 02:45 → ICUE 04-04 02:45 → PCU 04-04 15:06 → ICUE 04-11 16:05 → SURS 04-16 13:01
PROVIDERS: Family Medicine; Internal Medicine; Internal Medicine Cardiovascular Disease; Internal Medicine Critical Care Medicine; Internal Medicine Endocrinology, Diabetes & Metabolism; Student in an Organized Health Care Education/Training Program; ADMIT Internal Medicine
PROC: 30233N1 Transfusion of Nonautologous Red Blood Cells into Peripheral Vein, Percutaneous Approach (ICD-10-PCS; 2021-04-04)
PROC: 3E033XZ Introduction of Vasopressor into Peripheral Vein, Percutaneous Approach (ICD-10-PCS; principal; 2021-04-11)
DX: A41.9 Sepsis, unspecified organism (principal); J18.9 Pneumonia, unspecified organism; J96.01 Acute respiratory failure with hypoxia; R57.8 Other shock; I21.4 Non-ST elevation (NSTEMI) myocardial infarction; K66.1 Hemoperitoneum; I50.33 Acute on chronic diastolic (congestive) heart failure; I13.0 Hypertensive heart and chronic kidney disease with heart failure and stage 1 through stage 4 chronic kidney disease, or unspecified chronic kidney disease; C85.90 Non-Hodgkin lymphoma, unspecified, unspecified site; N17.9 Acute kidney failure, unspecified; N39.0 Urinary tract infection, site not specified; D62 Acute posthemorrhagic anemia; I48.19 Other persistent atrial fibrillation; Z66 Do not resuscitate; Z20.822 Contact with and (suspected) exposure to COVID-19; N18.30 Chronic kidney disease, stage 3 unspecified; E11.22 Type 2 diabetes mellitus with diabetic chronic kidney disease; E66.9 Obesity, unspecified; K21.9 Gastro-esophageal reflux disease without esophagitis; I35.0 Nonrheumatic aortic (valve) stenosis; R58 Hemorrhage, not elsewhere classified; R65.20 Severe sepsis without septic shock; R91.1 Solitary pulmonary nodule; D63.0 Anemia in neoplastic disease; I25.10 Atherosclerotic heart disease of native coronary artery without angina pectoris; E11.40 Type 2 diabetes mellitus with diabetic neuropathy, unspecified; Z68.30 Body mass index [BMI] 30.0-30.9, adult; E78.00 Pure hypercholesterolemia, unspecified; G47.33 Obstructive sleep apnea (adult) (pediatric); Z85.46 Personal history of malignant neoplasm of prostate; Z87.01 Personal history of pneumonia (recurrent); Z95.5 Presence of coronary angioplasty implant and graft; Z90.89 Acquired absence of other organs; Z98.890 Other specified postprocedural states; Z87.891 Personal history of nicotine dependence; Z88.1 Allergy status to other antibiotic agents; Z91.048 Other nonmedicinal substance allergy status; Z79.01 Long term (current) use of anticoagulants; Z79.899 Other long term (current) drug therapy
CPT/HCPCS: 36415; 36430; 36569; 71045; 71260; 74177; 76705; 80048; 80053; 80076; 81001; 82947; 83605; 83880; 84484; 85014; 85018; 85025; 85049; 85379; 85610; 85730; 86850; 86900; 86901; 86920; 86923; 87040; 87070; 87077; 87086; 87186; 87205; 93005; 93010; 93306; 94640; 94660; 94760; 94762; 96365; 97110; 97116; 97161; 97166; 97530; 97535; 99285; A9270; C1751; J0282; J0692; J1644; J1815; J1940; J1956; J2020; J2185; J2270; J2405; J2550; J2920; J2930; J3010; J3370; J7030; J7050; J7060; J7512; P9016; Q9967; U0004

== ENCOUNTER → 2021-04-28 | Outpatient (CLI) | payer MEDICARE, OTHER ==
[~2021-04-28] MED LIST changes: +CEFDINIR300 M4; +DOXYCYCLINE HY100 M1; +DULCOLAX400 MG/5 M PO; +HYDCOR10 PO; +LISI5; +LISINOPRIL TAB 5MG; +METF500 PO; +METO25 PO; +MUPIROCIN22 G6; +POLYETHYLENE G500 G1 PO; +Tessalon200 MG; +Ventolin/Prove6.7 GM
[2021-04-29 20:09] LABS: BASOPHILS ABSOLUTE AUTO 0.02 K/mm3 (0.00-0.23); BASOPHILS PERCENT AUTO 0 % (0-2); EOSINOPHILS ABSOLUTE AUTO 0.11 K/mm3 (0.00-0.68); EOSINOPHILS PERCENT AUTO 2 % (0-6); Hematocrit 32.2 % (37.0-53.0); IMMATURE GRAN ABSOLUTE AUTO 0.05 K/mm3 (0.00-0.10); IMMATURE GRAN PERCENT AUTO 1 % (0-1); LYMPHOCYTES ABSOLUTE AUTO 1.13 K/mm3 (0.84-5.20); LYMPHOCYTES PERCENT AUTO 23 % (21-46); MONOCYTES PERCENT AUTO 8 % (4-13); Mean Corpuscular HGB 30.1 pg (26.0-34.0); Mean Corpuscular HGB Conc 31.1 g/dL (31.5-36.5); Mean Corpuscular Volume 97 fL (80-100); Mean Platelet Volume 10.1 fL (9.1-12.4); NEUTROPHILS ABSOLUTE AUTO 3.29 K/mm3 (1.96-9.15); NEUTROPHILS PERCENT AUTO 66 % (41-73); Platelet Count 216 K/mm3 (150-400); RDW Standard Deviation 69.4 fL (35.1-46.3); Red Blood Cell Count 3.32 M/mm3 (4.30-5.90)
[2021-04-29 20:12] LABS: Albumin, Blood 2.6 g/dL (3.4-5.0); Anion Gap 5 mmol/L (6-16); Blood Urea Nitrogen 15 mg/dL (8-24); Bun/Creatinine Ratio 13.8 (12.0-20.0); CO2, Blood 26 mmol/L (21-32); Calcium, Blood 8.4 mg/dL (8.5-10.1); Chloride, Blood 108 mmol/L (98-108); Creatinine, Blood 1.09 mg/dL (0.60-1.20); Glomerular Filtration Rate >60 (60-); Glucose, Blood 205 mg/dL (70-99); Phosphorus, Blood 2.8 mg/dL (2.5-4.9); Potassium, Blood 4.2 mmol/L (3.5-5.5); Sodium, Blood 139 mmol/L (136-145)
== END | disposition home or self-care (01) ==
LOC: LAB SHORT 14:40
PROVIDERS: Family Medicine
DX: I12.9 Hypertensive chronic kidney disease with stage 1 through stage 4 chronic kidney disease, or unspecified chronic kidney disease (principal); E11.22 Type 2 diabetes mellitus with diabetic chronic kidney disease; E11.69 Type 2 diabetes mellitus with other specified complication; N18.31 Chronic kidney disease, stage 3a; D62 Acute posthemorrhagic anemia
CPT/HCPCS: 80069; 83036; 85025

== ENCOUNTER → 2021-06-11 | Outpatient (CLI) | payer MEDICARE, OTHER ==
[2021-06-11 17:06] LABS: BASOPHILS ABSOLUTE AUTO 0.03 K/mm3 (0.00-0.23); BASOPHILS PERCENT AUTO 0 % (0-2); EOSINOPHILS ABSOLUTE AUTO 0.17 K/mm3 (0.00-0.68); EOSINOPHILS PERCENT AUTO 2 % (0-6); Hemoglobin 11.5 g/dL (13.5-17.5); IMMATURE GRAN ABSOLUTE AUTO 0.05 K/mm3 (0.00-0.10); IMMATURE GRAN PERCENT AUTO 1 % (0-1); LYMPHOCYTES PERCENT AUTO 28 % (21-46); MONOCYTES ABSOLUTE AUTO 0.73 K/mm3 (0.16-1.47); MONOCYTES PERCENT AUTO 9 % (4-13); Mean Corpuscular HGB 30.2 pg (26.0-34.0); Mean Corpuscular HGB Conc 32.9 g/dL (31.5-36.5); Mean Corpuscular Volume 92 fL (80-100); Mean Platelet Volume 9.4 fL (9.1-12.4); NEUTROPHILS ABSOLUTE AUTO 4.75 K/mm3 (1.96-9.15); NEUTROPHILS PERCENT AUTO 60 % (41-73); Platelet Count 242 K/mm3 (150-400); Red Blood Cell Count 3.81 M/mm3 (4.30-5.90); White Blood Cell Count 7.93 K/mm3 (4.00-11.30)
[2021-06-11 17:16] LABS: Albumin, Blood 3.2 g/dL (3.4-5.0); Albumin/Globulin Ratio 1.5 (0.8-1.8); Bilirubin, Total 0.8 mg/dL (0.1-1.0); Bun/Creatinine Ratio 11.6 (12.0-20.0); Calcium, Blood 8.9 mg/dL (8.5-10.1); Creatinine, Blood 1.29 mg/dL (0.60-1.20); Globulin, Blood 2.2 g/dL (2.2-4.0); Potassium, Blood 3.6 mmol/L (3.5-5.5); Total Protein, Blood 5.4 g/dL (6.4-8.2)
== END | disposition home or self-care (01) ==
LOC: LAB SHORT 16:58
PROVIDERS: Physician Assistant
DX: R05.1 Acute cough (principal)
CPT/HCPCS: 80053; 83880; 85025

== ENCOUNTER 2021-09-03 17:49 | Inpatient (IN) | payer MEDICARE, OTHER ==
[~2021-09-03] VITALS: Ht 190.5 cm; Wt 95.2 kg
[~2021-09-03 17:49] MED LIST changes: -METO25 PO; +METO25ER PO; -Ventolin/Prove6.7 GM; +Ventolin/Prove6.7 GM INH
[2021-09-03 18:25] LABS: BASOPHILS ABSOLUTE AUTO 0.02 K/mm3 (0.00-0.23); BASOPHILS PERCENT AUTO 0 % (0-2); EOSINOPHILS ABSOLUTE AUTO 0.14 K/mm3 (0.00-0.68); EOSINOPHILS PERCENT AUTO 2 % (0-6); Hematocrit 31.9 % (37.0-53.0); Hemoglobin 10.3 g/dL (13.5-17.5); IMMATURE GRAN ABSOLUTE AUTO 0.07 K/mm3 (0.00-0.10); IMMATURE GRAN PERCENT AUTO 1 % (0-1); LYMPHOCYTES ABSOLUTE AUTO 2.35 K/mm3 (0.84-5.20); LYMPHOCYTES PERCENT AUTO 29 % (21-46); MONOCYTES ABSOLUTE AUTO 0.91 K/mm3 (0.16-1.47); MONOCYTES PERCENT AUTO 11 % (4-13); Mean Corpuscular HGB 31.2 pg (26.0-34.0); Mean Corpuscular HGB Conc 32.3 g/dL (31.5-36.5); Mean Corpuscular Volume 97 fL (80-100); Mean Platelet Volume 9.5 fL (9.1-12.4); NEUTROPHILS ABSOLUTE AUTO 4.69 K/mm3 (1.96-9.15); NEUTROPHILS PERCENT AUTO 57 % (41-73); Platelet Count 214 K/mm3 (150-400); RDW Coefficient Variation 16.5 % (11.7-14.2); RDW Standard Deviation 58.7 fL (35.1-46.3); White Blood Cell Count 8.18 K/mm3 (4.00-11.30)
[2021-09-03 18:39] LABS: Albumin/Globulin Ratio 1.2 (0.8-1.8); Bilirubin, Total 0.8 mg/dL (0.1-1.0); Bun/Creatinine Ratio 17.9 (12.0-20.0); Calcium, Blood 8.9 mg/dL (8.5-10.1); Creatinine, Blood 1.45 mg/dL (0.60-1.20); Globulin, Blood 2.6 g/dL (2.2-4.0); Potassium, Blood 4.2 mmol/L (3.5-5.5); Total Protein, Blood 5.6 g/dL (6.4-8.2)
[2021-09-04] MEDS ORDERED: CAMPHOR TOP (00:15)
[2021-09-04] MEDS ORDERED: MENTHOL TOP (00:15)
[2021-09-04] MEDS ORDERED: Vibramycin50 MG PO (00:16)
[2021-09-04] MEDS ORDERED: FURO20 PO (00:16)
[2021-09-04] MEDS ORDERED: LACT PO (00:17)
[2021-09-04] MEDS ORDERED: OMEP20ER PO (00:19)
[2021-09-04] MEDS ORDERED: POTA10T PO (00:20)
[2021-09-04] MEDS ORDERED: DOCU100 PO (00:21)
--- NOTE | 2021-09-04 05:14 | NUR ---
SHIFT SUMMARY: Patient arrived to the unit at approx 2300 via gurney with ER staff, A&O, on 3 L via NC to maintain O2 sats> 92%, patient does not wear home O2, uses a CPAP at night however refused ours this evening, developed a headache at approx 0400, states he gets migranes at home sometimes. PRN tylenol ordered and administered, patient has nephrostomy to RLQ, stoma is WNL, patient placed home night device on urostomy, clear yellow urine noted out
[2021-09-04 05:15] LABS: BASOPHILS ABSOLUTE AUTO 0.03 K/mm3 (0.00-0.23); BASOPHILS PERCENT AUTO 0 % (0-2); EOSINOPHILS PERCENT AUTO 1 % (0-6); Hematocrit 31.1 % (37.0-53.0); Hemoglobin 10.3 g/dL (13.5-17.5); IMMATURE GRAN ABSOLUTE AUTO 0.07 K/mm3 (0.00-0.10); IMMATURE GRAN PERCENT AUTO 1 % (0-1); LYMPHOCYTES ABSOLUTE AUTO 1.62 K/mm3 (0.84-5.20); LYMPHOCYTES PERCENT AUTO 20 % (21-46); MONOCYTES ABSOLUTE AUTO 0.78 K/mm3 (0.16-1.47); MONOCYTES PERCENT AUTO 10 % (4-13); Mean Corpuscular HGB 31.3 pg (26.0-34.0); Mean Corpuscular HGB Conc 33.1 g/dL (31.5-36.5); Mean Corpuscular Volume 95 fL (80-100); Mean Platelet Volume 9.3 fL (9.1-12.4); NEUTROPHILS ABSOLUTE AUTO 5.56 K/mm3 (1.96-9.15); NEUTROPHILS PERCENT AUTO 68 % (41-73); Platelet Count 240 K/mm3 (150-400); RDW Coefficient Variation 16.1 % (11.7-14.2); RDW Standard Deviation 56.2 fL (35.1-46.3); Red Blood Cell Count 3.29 M/mm3 (4.30-5.90); White Blood Cell Count 8.16 K/mm3 (4.00-11.30)
[2021-09-04 05:42] LABS: Albumin, Blood 2.7 g/dL (3.4-5.0); Bun/Creatinine Ratio 16.8 (12.0-20.0); Calcium, Blood 8.7 mg/dL (8.5-10.1); Creatinine, Blood 1.31 mg/dL (0.60-1.20); Globulin, Blood 2.8 g/dL (2.2-4.0); Potassium, Blood 3.9 mmol/L (3.5-5.5); Total Protein, Blood 5.5 g/dL (6.4-8.2)
[2021-09-04 13:17] LABS: CPK Creatine Kinase 56 U/L (39-308)
--- NOTE | 2021-09-04 14:06 | NUR ---
Pt. is awake and welcomes my visit. Pt. is Tenriism and verbalizes that he normally sees Father Bairon. I offered to contact him, but Pt. declined as it is Good Tuesday and a Holy Weekend. Pt. verbalized gratitude for offering. Established rapport, and visited for some time as we have many common relationships. Pt. verbalized gratitude for the spiritual care visit.
--- NOTE | 2021-09-04 17:44 | NUR ---
SHIFT SUMMARY PATIENT MEDICATED X1 FOR HEADACHE. PATIENT DENIES NAUSEA AND SHORTNESS OF BREATH AT REST. PATIENT RREPORTS SHORTNESS OF BREATH WHEN AMBULATING TO BATHROOM, BUT MINIMAL. PATIENT IS A SBA WITH A FWW. PATIENT TROP ARE TRENDING DOWN. PATIENT ON ROOM AIR DURING DAY, SATURATING AT 92%. PATIENT UROSTOMY PATENT AND DRAINING TO GRAVITY. PER DR. CORNELL, NEW ORDERS FOR IV STERIODS. PATIENT EAGER TO GET HOME FOR [facility]. PATIENT IS EATING AND DRINKING WELL. PATIENT IS PLEASANT AND COOPERATIVE WITH CARE.
[2021-09-05 05:05] LABS: BASOPHILS ABSOLUTE AUTO 0.01 K/mm3 (0.00-0.23); BASOPHILS PERCENT AUTO 0 % (0-2); EOSINOPHILS PERCENT AUTO 0 % (0-6); Hematocrit 33.7 % (37.0-53.0); Hemoglobin 11.4 g/dL (13.5-17.5); IMMATURE GRAN ABSOLUTE AUTO 0.07 K/mm3 (0.00-0.10); IMMATURE GRAN PERCENT AUTO 1 % (0-1); LYMPHOCYTES ABSOLUTE AUTO 0.72 K/mm3 (0.84-5.20); LYMPHOCYTES PERCENT AUTO 14 % (21-46); MONOCYTES ABSOLUTE AUTO 0.21 K/mm3 (0.16-1.47); MONOCYTES PERCENT AUTO 4 % (4-13); Mean Corpuscular HGB 31.4 pg (26.0-34.0); Mean Corpuscular HGB Conc 33.8 g/dL (31.5-36.5); Mean Corpuscular Volume 93 fL (80-100); Mean Platelet Volume 9.4 fL (9.1-12.4); NEUTROPHILS ABSOLUTE AUTO 4.22 K/mm3 (1.96-9.15); NEUTROPHILS PERCENT AUTO 81 % (41-73); Platelet Count 273 K/mm3 (150-400); RDW Coefficient Variation 15.6 % (11.7-14.2); RDW Standard Deviation 53.2 fL (35.1-46.3); Red Blood Cell Count 3.63 M/mm3 (4.30-5.90); White Blood Cell Count 5.23 K/mm3 (4.00-11.30)
[2021-09-05 05:33] LABS: Anion Gap 6 mmol/L (6-16); Blood Urea Nitrogen 22 mg/dL (8-24); Bun/Creatinine Ratio 19.6 (12.0-20.0); CO2, Blood 28 mmol/L (21-32); Calcium, Blood 9.5 mg/dL (8.5-10.1); Chloride, Blood 105 mmol/L (98-108); Creatinine, Blood 1.12 mg/dL (0.60-1.20); Glomerular Filtration Rate >60 (60-); Glucose, Blood 243 mg/dL (70-99); Potassium, Blood 4.2 mmol/L (3.5-5.5); Sodium, Blood 139 mmol/L (136-145)
--- NOTE | 2021-09-05 06:04 | NUR ---
SHIFT SUMMARY: PATIENT REPORT RE-OCCURANT HEADACHE. TYLENOL AND A COOL COMPRESS WERE GIVEN WITH GOOD EFFECT. UP TO THE BATHROOM WITH A SBA OF 1, USING FWW. STAEDY GAIT OBSERVED.
--- NOTE | 2021-09-05 14:52 | NUR ---
SHIFT SUMMARY PT AWAKE DURING SHIFT REPORT. A&O, PLEASANT AND CO-OP. PT REPORTED THAT HE IS FEELING BETTER AND WANTING TO GO HOME TODAY. DR CORNELL HERE LATER TO SEE PT. DISCUSSED PLAN OF CARE. PT TO D/C TO HOME LATER THIS AFTERNOON. PT TO GET UP AND AMBULATE AROUND RM. PT UP AFTER LUNCH AND ABLE TO AMBULATE IN RM AND AROUND IN HALLS. PT THEN BACK TO AND REQUESTED SHOWER. PT ABLE TO SHOWER HIMSELF WITH SBA IN AND OUT OF [facility]. PT ALSO ABLE TO GET HIMSELF DRESSED. TO RM WAITING FOR PT TO D/C. ORDERS PLACED. TELE AND IV SITE DC'D.
[2021-09-05] MEDS ORDERED: GUAI600T33 PO (16:46)
[2021-09-05] MEDS ORDERED: PRED20 PO (16:47)
[2021-09-05] MEDS ORDERED: Cefpodoxime Pr100 MG PO (16:47)
== END 2021-09-05 16:58 | disposition home or self-care (01) | DRG 177 ==
LOC: ER 17:49 → MEDS 17:50 → ER 22:33 → MEDS 22:33
PROVIDERS: Emergency Medicine; Internal Medicine; ADMIT Internal Medicine
DX: J15.6 Pneumonia due to other Gram-negative bacteria (principal); I50.33 Acute on chronic diastolic (congestive) heart failure; J96.01 Acute respiratory failure with hypoxia; I13.0 Hypertensive heart and chronic kidney disease with heart failure and stage 1 through stage 4 chronic kidney disease, or unspecified chronic kidney disease; I24.8 Other forms of acute ischemic heart disease; Z66 Do not resuscitate; B96.89 Other specified bacterial agents as the cause of diseases classified elsewhere; I48.91 Unspecified atrial fibrillation; K59.00 Constipation, unspecified; N18.30 Chronic kidney disease, stage 3 unspecified; E11.22 Type 2 diabetes mellitus with diabetic chronic kidney disease; E11.42 Type 2 diabetes mellitus with diabetic polyneuropathy; I27.20 Pulmonary hypertension, unspecified; I25.10 Atherosclerotic heart disease of native coronary artery without angina pectoris; I35.0 Nonrheumatic aortic (valve) stenosis; I25.2 Old myocardial infarction; Z88.1 Allergy status to other antibiotic agents; Z91.09 Other allergy status, other than to drugs and biological substances; Z79.899 Other long term (current) drug therapy; Z79.84 Long term (current) use of oral hypoglycemic drugs; Z92.21 Personal history of antineoplastic chemotherapy; Z85.72 Personal history of non-Hodgkin lymphomas; Z85.46 Personal history of malignant neoplasm of prostate; Z92.3 Personal history of irradiation; Z87.891 Personal history of nicotine dependence; Z90.89 Acquired absence of other organs; Z90.49 Acquired absence of other specified parts of digestive tract; Z98.890 Other specified postprocedural states; Z95.5 Presence of coronary angioplasty implant and graft; Z89.411 Acquired absence of right great toe
CPT/HCPCS: 36415; 71046; 80048; 80053; 82550; 82947; 83880; 84145; 84484; 85025; 87070; 87077; 87185; 87205; 93005; 93010; 96365; 96366; 96374; 96375; 96376; 99284-25; A9270; G0378; J0696; J1650; J1940; J2920

== ENCOUNTER 2022-03-12 12:22 | Emergency (ER) | payer MEDICARE, OTHER ==
[~2022-03-12] VITALS: Ht 190.5 cm; Wt 100.7 kg
[~2022-03-12 12:22] MED LIST changes: +CAMPHOR TOP; +Cefpodoxime Pr100 MG PO; +FURO20 PO; +MENTHOL TOP; +PRED20 PO; +Vibramycin50 MG PO
[2022-03-12 13:00] LABS: BASOPHILS ABSOLUTE AUTO 0.02 K/mm3 (0.00-0.23); BASOPHILS PERCENT AUTO 0 % (0-2); EOSINOPHILS PERCENT AUTO 1 % (0-6); Hematocrit 34.5 % (37.0-53.0); Hemoglobin 11.5 g/dL (13.5-17.5); IMMATURE GRAN ABSOLUTE AUTO 0.04 K/mm3 (0.00-0.10); IMMATURE GRAN PERCENT AUTO 1 % (0-1); LYMPHOCYTES ABSOLUTE AUTO 2.01 K/mm3 (0.84-5.20); LYMPHOCYTES PERCENT AUTO 26 % (21-46); MONOCYTES ABSOLUTE AUTO 0.67 K/mm3 (0.16-1.47); MONOCYTES PERCENT AUTO 9 % (4-13); Mean Corpuscular HGB 32.6 pg (26.0-34.0); Mean Corpuscular HGB Conc 33.3 g/dL (31.5-36.5); Mean Corpuscular Volume 98 fL (80-100); Mean Platelet Volume 9.4 fL (9.1-12.4); NEUTROPHILS ABSOLUTE AUTO 4.98 K/mm3 (1.96-9.15); NEUTROPHILS PERCENT AUTO 64 % (41-73); Platelet Count 189 K/mm3 (150-400); RDW Coefficient Variation 16.2 % (11.7-14.2); RDW Standard Deviation 57.3 fL (35.1-46.3); Red Blood Cell Count 3.53 M/mm3 (4.30-5.90); White Blood Cell Count 7.82 K/mm3 (4.00-11.30)
[2022-03-12 13:22] LABS: Albumin, Blood 3.7 g/dL (3.4-5.0); Albumin/Globulin Ratio 1.5 (0.8-1.8); Bilirubin, Total 0.9 mg/dL (0.1-1.0); Bun/Creatinine Ratio 24.8 (12.0-20.0); Calcium, Blood 9.2 mg/dL (8.5-10.1); Creatinine, Blood 1.37 mg/dL (0.60-1.20); Globulin, Blood 2.4 g/dL (2.2-4.0); Potassium, Blood 4.4 mmol/L (3.5-5.5); Total Protein, Blood 6.1 g/dL (6.4-8.2)
== END 2022-03-12 17:06 | disposition home or self-care (01) ==
LOC: ER 12:22
PROVIDERS: Emergency Medicine
DX: R07.9 Chest pain, unspecified (principal); E11.40 Type 2 diabetes mellitus with diabetic neuropathy, unspecified; I11.0 Hypertensive heart disease with heart failure; I50.9 Heart failure, unspecified; K21.9 Gastro-esophageal reflux disease without esophagitis; I25.10 Atherosclerotic heart disease of native coronary artery without angina pectoris; I25.2 Old myocardial infarction; I48.91 Unspecified atrial fibrillation; Z91.048 Other nonmedicinal substance allergy status; Z88.1 Allergy status to other antibiotic agents; Z79.899 Other long term (current) drug therapy; Z79.84 Long term (current) use of oral hypoglycemic drugs
CPT/HCPCS: 71045; 80053; 83880; 84484; 85025; 93005; 93010; 99285-25

== ENCOUNTER 2022-10-07 09:47 | Day surgery (SDC) | payer OTHER ==
[~2022-10-07] VITALS: Ht 190.5 cm; Wt 100.7 kg
--- NOTE | 2022-10-07 10:24 | NUR ---
10/07/22 [facility] Dee Garcia AT 1020 PLEDGET AT 1021
--- NOTE | 2022-10-07 11:23 | NUR ---
10/07/22 1122 Bibiana Davila PATIENT IS BRADYCARDIC. OR NURSE STATED IT WAS NORMAL AND OCCURED DURING THE PROCEDURE WELL.
[2022-10-07 11:25] VITALS: BP 108/36
== END 2022-10-07 11:48 | disposition home or self-care (01) ==
LOC: ORSCSDS 09:47
PROVIDERS: Ophthalmology
PROC: 08RJ3JZ Replacement of Right Lens with Synthetic Substitute, Percutaneous Approach (ICD-10-PCS; principal; 2022-10-07 11:00)
DX: E11.36 Type 2 diabetes mellitus with diabetic cataract (principal); H25.11 Age-related nuclear cataract, right eye; H52.201 Unspecified astigmatism, right eye; H21.81 Floppy iris syndrome; Z96.1 Presence of intraocular lens; Z87.891 Personal history of nicotine dependence; Z85.46 Personal history of malignant neoplasm of prostate; E78.5 Hyperlipidemia, unspecified; E11.40 Type 2 diabetes mellitus with diabetic neuropathy, unspecified; I12.9 Hypertensive chronic kidney disease with stage 1 through stage 4 chronic kidney disease, or unspecified chronic kidney disease; E11.22 Type 2 diabetes mellitus with diabetic chronic kidney disease; N18.30 Chronic kidney disease, stage 3 unspecified; G47.33 Obstructive sleep apnea (adult) (pediatric); I25.10 Atherosclerotic heart disease of native coronary artery without angina pectoris; I25.2 Old myocardial infarction; Z79.899 Other long term (current) drug therapy
CPT/HCPCS: 82947; J2250; J3010; J3301; J7040; V2632

== ENCOUNTER 2022-10-27 04:21 | Inpatient (IN) | payer OTHER ==
[~2022-10-27] VITALS: Ht 190.5 cm; Wt 103.4 kg
[2022-10-27] VITALS (12 sets, daily range): BP systolic 90–110; BP diastolic 38–58
[2022-10-27 04:54] LABS: BASOPHILS ABSOLUTE AUTO 0.04 K/mm3 (0.00-0.23); BASOPHILS PERCENT AUTO 0 % (0-2); EOSINOPHILS ABSOLUTE AUTO 0.25 K/mm3 (0.00-0.68); EOSINOPHILS PERCENT AUTO 1 % (0-6); Hematocrit 34.1 % (37.0-53.0); Hemoglobin 11.6 g/dL (13.5-17.5); IMMATURE GRAN ABSOLUTE AUTO 0.15 K/mm3 (0.00-0.10); IMMATURE GRAN PERCENT AUTO 1 % (0-1); LYMPHOCYTES ABSOLUTE AUTO 2.76 K/mm3 (0.84-5.20); LYMPHOCYTES PERCENT AUTO 14 % (21-46); MONOCYTES ABSOLUTE AUTO 0.76 K/mm3 (0.16-1.47); MONOCYTES PERCENT AUTO 4 % (4-13); Mean Corpuscular HGB 32.3 pg (26.0-34.0); Mean Corpuscular Volume 95 fL (80-100); Mean Platelet Volume 9.7 fL (9.1-12.4); NEUTROPHILS ABSOLUTE AUTO 15.88 K/mm3 (1.96-9.15); NEUTROPHILS PERCENT AUTO 80 % (41-73); NRBC ABSOLUTE 0.02 K/mm3 (0.00-0.02); NRBC Auto 0.1 /100 WBC (0.0-0.2); Platelet Count 204 K/mm3 (150-400); RDW Coefficient Variation 15.5 % (11.7-14.2); RDW Standard Deviation 53.1 fL (35.1-46.3); Red Blood Cell Count 3.59 M/mm3 (4.30-5.90); White Blood Cell Count 19.84 K/mm3 (4.00-11.30)
[2022-10-27 05:05] LABS: Albumin, Blood 3.6 g/dL (3.4-5.0); Albumin/Globulin Ratio 1.5 (0.8-1.8); Bilirubin, Total 0.8 mg/dL (0.1-1.0); Bun/Creatinine Ratio 22.9 (12.0-20.0); Calcium, Blood 9.1 mg/dL (8.5-10.1); Creatinine, Blood 1.53 mg/dL (0.60-1.20); Globulin, Blood 2.4 g/dL (2.2-4.0); Potassium, Blood 4.3 mmol/L (3.5-5.5)
[2022-10-27 09:29] LABS: Anti-Xa UFH, PHA Monitoring <0.10 IU/mL; International Normalized Ratio 0.98; Prothrombin Time Results 10.3 Sec (9.7-11.5)
--- NOTE | 2022-10-27 09:52 | NUR ---
ADMIT PT ARRIVED AT 0915 VIA ER BED. WHEN PT IS AWAKE, HE IS ALERT, AND ORIENTED. PT IS DROWSEY AND FALLS ASLEEP QUICKLY. PT DENIES CHEST PAIN, SOB, AND NAUSEA AT THIS TIME. VITAL SIGNS STABLE. PT ON 3L O2 NC. IV'S SALINE LOCKED. UROSTOMY IN PLACE WITH YELLOW OUTPUT NOTED TO DRAINAGE BAG. PT SPOUSE AND DAUGHTER AT BEDSIDE. WILL CONTINUE TO MONITOR.
--- NOTE | 2022-10-27 10:39 | NUR ---
Spiritual Care Visit. Pt. is resting. Pts. Spoue and daughter are present and welcome my visit. Facilitate life review with the family, and get an update from ICU charge nurse. Listen with empathy and a calming presence as rapport is established. Pts. family is known to this solutions sales consultant. Considered matters of yvrose and practice. Family verbalized gratitude for the spiritual care visit.
[2022-10-27] MEDS ORDERED: OXAYDO5 M1 PO (11:15)
--- NOTE | 2022-10-27 15:50 | NUR ---
PATIENT CAME FROM ICU TO SURGICAL TODAY AT 1530. PATIENT IS A&OX4 BUT FOND DU LAC. IS AT BEDSIDE. PATIENT HAS HIS UROSTOMY WITH DARK BERTRAM URINE IN THOMAS BAG. PATIENT IS TOLERATING PO INTAKE. DENIES PAIN AND REPORTS "I AM FEELING VERY COMFORTABLE RIGHT NOW". PATIENT HAS CALL LIGHT WITHIN REACH.
--- NOTE | 2022-10-27 16:45 | NUR ---
Spiritual Care Follow Up Pt. has been moved to Surgical floor. Pt. is awake in his bed and spouse is present. Both welcome my visit. Facilitate life review and give pastoral care. Daught and grandson arrive. Pt. displays evidence of ocassional visceral pain but also adore especially with his grandson present. Family verbalized gratitude for the spiritual care visit.
[2022-10-28 04:46] VITALS: BP 101/50
[2022-10-28 05:05] LABS: BASOPHILS ABSOLUTE AUTO 0.05 K/mm3 (0.00-0.23); BASOPHILS PERCENT AUTO 0 % (0-2); EOSINOPHILS ABSOLUTE AUTO 0.02 K/mm3 (0.00-0.68); EOSINOPHILS PERCENT AUTO 0 % (0-6); IMMATURE GRAN ABSOLUTE AUTO 0.22 K/mm3 (0.00-0.10); IMMATURE GRAN PERCENT AUTO 1 % (0-1); LYMPHOCYTES ABSOLUTE AUTO 2.34 K/mm3 (0.84-5.20); LYMPHOCYTES PERCENT AUTO 10 % (21-46); MONOCYTES ABSOLUTE AUTO 1.42 K/mm3 (0.16-1.47); MONOCYTES PERCENT AUTO 6 % (4-13); Mean Corpuscular HGB 32.5 pg (26.0-34.0); Mean Corpuscular HGB Conc 34.4 g/dL (31.5-36.5); Mean Corpuscular Volume 95 fL (80-100); Mean Platelet Volume 9.2 fL (9.1-12.4); NEUTROPHILS PERCENT AUTO 82 % (41-73); Platelet Count 183 K/mm3 (150-400); RDW Coefficient Variation 15.7 % (11.7-14.2); RDW Standard Deviation 53.1 fL (35.1-46.3); Red Blood Cell Count 3.38 M/mm3 (4.30-5.90); White Blood Cell Count 22.45 K/mm3 (4.00-11.30)
--- NOTE | 2022-10-28 05:32 | NUR ---
EOS NOTE PATIENT A/OX4, VERY PLESANT. AT BEDSIDE DURING BEDSIDE REPORT, PATIENT IS ON 3L NC. ACCORDING TO PMD PT USES A CPAP AT HOME, PT AND STATE HE HASN'T USED IT IN A LONG TIME. O2 SATS SPOT CHECKED THROUGHOUT THE NIGHT AND REMAINED IN LOW 90'S ON 3L NC. 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 IS SEARCHING FOR A BACKUP PAIR TO BRING IN TODAY. PATIENT ENDORSED 10/10 PAIN ON TWO SEPARATE OCCASIONS LAST NIGHT, ONCE EARLIER ON FOR CBP AND ONCE AT 0515 FOR ONGOING CHEST PAIN-ALSO THE REASON FOR ADMISSION. SEE MAR FOR MEDICATING FOR BOTH EPISODES. UROSTOMY OUTPUT APPROPRIATE, TUBES REMAINED UNKINKED, LOWER THAN BLADDER HANGING AT THE END OF THE BED. HAS QUESTIONS ABOUT PATIENT NOT BEING ON ABX FOR PNA, WILL DISCUSS WITH MD TODAY. VSS.
[2022-10-28 05:37] LABS: Bun/Creatinine Ratio 25.6 (12.0-20.0); Creatinine, Blood 1.72 mg/dL (0.60-1.20); Potassium, Blood 4.6 mmol/L (3.5-5.5)
[2022-10-28 07:38] VITALS: BP 111/55
[2022-10-28 14:18] VITALS: BP 106/59
--- NOTE | 2022-10-28 14:41 | NUR ---
"Spiritual Care | Family support Pt. is resting in his room, and I meet with Pts. spouse in the hallway for an extended time of life review and rapport building. Was able to connect spouse with a Eucharistic volunteer, who took the families information. Pts. spouse verbalized gratitude for the care and concern for the Pt. and family."
[2022-10-28 19:08] VITALS: BP 100/49
[2022-10-29 04:27] LABS: BASOPHILS ABSOLUTE AUTO 0.03 K/mm3 (0.00-0.23); BASOPHILS PERCENT AUTO 0 % (0-2); EOSINOPHILS ABSOLUTE AUTO 0.04 K/mm3 (0.00-0.68); EOSINOPHILS PERCENT AUTO 0 % (0-6); Hematocrit 30.6 % (37.0-53.0); Hemoglobin 10.4 g/dL (13.5-17.5); IMMATURE GRAN ABSOLUTE AUTO 0.12 K/mm3 (0.00-0.10); IMMATURE GRAN PERCENT AUTO 1 % (0-1); LYMPHOCYTES ABSOLUTE AUTO 2.64 K/mm3 (0.84-5.20); LYMPHOCYTES PERCENT AUTO 17 % (21-46); MONOCYTES ABSOLUTE AUTO 1.15 K/mm3 (0.16-1.47); MONOCYTES PERCENT AUTO 8 % (4-13); Mean Corpuscular Volume 94 fL (80-100); Mean Platelet Volume 9.6 fL (9.1-12.4); NEUTROPHILS ABSOLUTE AUTO 11.35 K/mm3 (1.96-9.15); NEUTROPHILS PERCENT AUTO 74 % (41-73); NRBC ABSOLUTE 0.02 K/mm3 (0.00-0.02); NRBC Auto 0.1 /100 WBC (0.0-0.2); Platelet Count 182 K/mm3 (150-400); RDW Coefficient Variation 15.6 % (11.7-14.2); RDW Standard Deviation 53.5 fL (35.1-46.3); Red Blood Cell Count 3.25 M/mm3 (4.30-5.90); White Blood Cell Count 15.33 K/mm3 (4.00-11.30)
[2022-10-29 04:45] VITALS: BP 120/58
[2022-10-29 04:50] LABS: Bun/Creatinine Ratio 28.2 (12.0-20.0); Creatinine, Blood 1.63 mg/dL (0.60-1.20); Potassium, Blood 4.5 mmol/L (3.5-5.5)
--- NOTE | 2022-10-29 06:27 | NUR ---
EOS NOTE: PATIENT A/OX4, VERY HARD OF HEARING BUT FAMILY BROUGHT IN HEARING AID. PATIENT DID NOT USE CALL LIGHT, EDUCATED MULTIPLE TIMES TO CALL. PATIENT WOULD MOAN, WHEN CHECKED ON WOULD ASK FOR PAIN MEDS. ASKED PATIENT WHY HE WASN'T USING THE CALL LIGHT AND HE STATED "I REALLY HATE TO." PATIENT STATED HE HASN'T HHAD A BM IN FIVE DAYS, JERI IS ON HIS MAR. WILL NOTIFY DAY SHIFT/MD.
[2022-10-29 07:27] VITALS: BP 112/51
--- NOTE | 2022-10-29 11:11 | NUR ---
Spiritual Care Visit. Pt. is awake in bed and welcomes my visit. Spouse stepped out of the room to make a call. Facilitated an extended life review and re-established rapport. Pt. displayed evidence of trust and a boutant spirit. Hospitalizt arrived, and this methods examiner excused himself. Pt. verbalized gratitude for the spiritual care visit.
[2022-10-29 14:32] VITALS: BP 121/57
--- NOTE | 2022-10-29 15:00 | NUR ---
SHIFT SUMMARY: NO SIGNIFICANT CHANGES DURING SHIFT SO FAR. PATIENT IS SAMISH BUT IS A&OX4. VS ARE WNL AND IS STILL ON 3L NC. PATIENT PULLED DOWN HIS NC ON ACCIDENT EARLIER THIS SHIFT AND STATED "I FEEL VERY SHORT OF BREATH" BUT ONCE NC WAS PLACED BACK ON HE REPORTED FEELING MUCH BETTER. OXYGEN SATS WITH NC IS >90%. PAIN IS MANAGED WITH ORAL PAIN MEDICATIONS BUT HAS NOT NEEDED ANY YET THIS SHIFT. 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 HE IS TOLERATING PO INTAKE. PATIENT IS A SBA WITH FWW AND GAIT BELT. PATIENT TRIED GOING TO THE BATHROOM BUT WAS ONLY ABLE TO PASS GAS AND NO BM. PATIENT IS LAYING IN THE RECLINER WITH CALL LIGHT IN REACH. IS AT BEDSIDE. THE PLAN IS TO CONTINUE IV ABX AND THE IV LASIX. PATIENT WILL GO HOME ON HOSPICE ON TUESDAY.
[2022-10-29 20:24] VITALS: BP 155/76
--- NOTE | 2022-10-29 21:59 | NUR ---
pt c/o nausea and have no meds available for nausea.pt has scheduled meds due that he is unable to take due to nausea, call out to hospitalist pending call back.
--- NOTE | 2022-10-30 01:14 | NUR ---
order matteo received for zofran and dose was effective.pt was given his scheduled meds.
[2022-10-30 06:39] LABS: BASOPHILS ABSOLUTE AUTO 0.03 K/mm3 (0.00-0.23); BASOPHILS PERCENT AUTO 0 % (0-2); EOSINOPHILS ABSOLUTE AUTO 0.23 K/mm3 (0.00-0.68); EOSINOPHILS PERCENT AUTO 2 % (0-6); Hematocrit 30.2 % (37.0-53.0); Hemoglobin 10.5 g/dL (13.5-17.5); IMMATURE GRAN ABSOLUTE AUTO 0.13 K/mm3 (0.00-0.10); IMMATURE GRAN PERCENT AUTO 1 % (0-1); LYMPHOCYTES ABSOLUTE AUTO 2.06 K/mm3 (0.84-5.20); LYMPHOCYTES PERCENT AUTO 22 % (21-46); MONOCYTES ABSOLUTE AUTO 0.87 K/mm3 (0.16-1.47); MONOCYTES PERCENT AUTO 9 % (4-13); Mean Corpuscular HGB 32.5 pg (26.0-34.0); Mean Corpuscular HGB Conc 34.8 g/dL (31.5-36.5); Mean Corpuscular Volume 94 fL (80-100); Mean Platelet Volume 9.7 fL (9.1-12.4); NEUTROPHILS ABSOLUTE AUTO 6.09 K/mm3 (1.96-9.15); NEUTROPHILS PERCENT AUTO 65 % (41-73); Platelet Count 222 K/mm3 (150-400); RDW Coefficient Variation 15.5 % (11.7-14.2); RDW Standard Deviation 52.3 fL (35.1-46.3); Red Blood Cell Count 3.23 M/mm3 (4.30-5.90); White Blood Cell Count 9.41 K/mm3 (4.00-11.30)
[2022-10-30 07:00] LABS: Bun/Creatinine Ratio 27.8 (12.0-20.0); Calcium, Blood 8.7 mg/dL (8.5-10.1); Creatinine, Blood 1.44 mg/dL (0.60-1.20); Potassium, Blood 3.7 mmol/L (3.5-5.5)
[2022-10-30 07:26] VITALS: BP 123/54
--- NOTE | 2022-10-30 07:43 | NUR ---
SUMMARY PT MED X 1 PO FOR PAIN TONIGHT.UROSTOMY PATENT TO LARGE THOMAS BAG.INTERACTIVE WITH STAFF TONIGHT.
[2022-10-30 14:28] VITALS: BP 120/57
--- NOTE | 2022-10-30 15:26 | NUR ---
SHIFT SUMMARY: NO SIGNIFICANT CHANGES THROUGHOUT SHIFT. A&OX4 BUT IS [place]. VS ARE WNL AND IS ON HIS 3L NC WITH >90% OXYGEN SATS. PATIENT HAS REFUSED PAIN MEDICATIONS SO FAR THIS SHIFT AND STATES "I'M FEELING GREAT!" AFTER EACH ASK. PATIENT IS TOLERATING PO INTAKE AND IS VOIDING IN HIS UROSTOMY WITH YELLOW URINE IN BAG. PATIENT HAS BEEN PASSING GAS AND HAS BEEN TAKING HIS BOWEL CARE MEDICATIONS BUT STILL NO BM SO FAR. PATIENTS POWERGLIDE IN HIS [place] IS WNL AND HAS IV FLUIDS TO FLUSH HIS IV ABX. HE IS A SBA WITH FWW AND GAIT BELT FROM [id number]. PATIENT IS SITTING UP IN RECLINER WITH CALL LIGHT IN REACH. FAMILY IS AT BEDSIDE. THE PLAN IS TO DISCHARGE HOME WITH HOSPICE ON TUESDAY BUT CONTINUE PAIN MANAGEMENT AND IV ABX.
[2022-10-30 20:30] VITALS: BP 124/58
[2022-10-31 06:05] VITALS: BP 121/59
--- NOTE | 2022-10-31 06:44 | NUR ---
SUMMARY PT SLEPT WELL TONIGHT WHEN UNDISTURBED.
[2022-10-31 07:26] VITALS: BP 108/53
--- NOTE | 2022-10-31 14:51 | NUR ---
SHIFT SUMMARY: NO SIGNIFICANT CHANGES DURING SHIFT. PATIENT IS A&OX4 BUT IS [place]. VS ARE WNL AND IS ON RA WITH >90% OXYGEN SATS. PAIN IS MANAGED WITH 10 OXY PO WITH HIS PAIN MAINLY FROM HIS NEUROPATHY IN HIS FEET. PATIENT IS TOLERATING PO INTAKE AND HAS HIS CHRONIC UROSTOMY WITH YELLOW URINE FOR OUTPUT. PATIENT WAS ABLE TO HAVE A SMALL BM TODAY AND IS PASSING GAS WELL. HE IS A SBA WITH FWW AND GAIT BELT FROM [id number]. HE IS SITTING UP IN THE RECLINER WITH CALL LIGHT IN REACH. FAMILY IS AT BEDSIDE. PATIENT CALLS APPROPRIATELY. POWERGLIDE IN [place] DRAWS BLOOD AND FLUSHES WELL. POWERGLIDE IS CURRENTLY SALINE LOCKED. THE PLAN IS TO DISCHARGE HOME ON HOSPICE TOMORROW.
[2022-10-31 16:52] VITALS: BP 110/59
[2022-10-31 20:03] VITALS: BP 118/56
[2022-11-01 04:16] VITALS: BP 118/57
[2022-11-01 04:38] LABS: BASOPHILS ABSOLUTE AUTO 0.06 K/mm3 (0.00-0.23); BASOPHILS PERCENT AUTO 1 % (0-2); EOSINOPHILS ABSOLUTE AUTO 0.56 K/mm3 (0.00-0.68); EOSINOPHILS PERCENT AUTO 6 % (0-6); Hematocrit 32.2 % (37.0-53.0); IMMATURE GRAN ABSOLUTE AUTO 0.19 K/mm3 (0.00-0.10); IMMATURE GRAN PERCENT AUTO 2 % (0-1); LYMPHOCYTES ABSOLUTE AUTO 2.49 K/mm3 (0.84-5.20); LYMPHOCYTES PERCENT AUTO 25 % (21-46); MONOCYTES ABSOLUTE AUTO 1.09 K/mm3 (0.16-1.47); MONOCYTES PERCENT AUTO 11 % (4-13); Mean Corpuscular HGB 31.9 pg (26.0-34.0); Mean Corpuscular HGB Conc 34.2 g/dL (31.5-36.5); Mean Corpuscular Volume 93 fL (80-100); Mean Platelet Volume 9.4 fL (9.1-12.4); NEUTROPHILS PERCENT AUTO 55 % (41-73); Platelet Count 238 K/mm3 (150-400); RDW Coefficient Variation 15.1 % (11.7-14.2); RDW Standard Deviation 50.9 fL (35.1-46.3); Red Blood Cell Count 3.45 M/mm3 (4.30-5.90); White Blood Cell Count 9.79 K/mm3 (4.00-11.30)
[2022-11-01 04:58] LABS: Albumin, Blood 2.7 g/dL (3.4-5.0); Bilirubin, Total 0.8 mg/dL (0.1-1.0); Calcium, Blood 8.8 mg/dL (8.5-10.1); Creatinine, Blood 1.41 mg/dL (0.60-1.20); Globulin, Blood 2.7 g/dL (2.2-4.0); Potassium, Blood 3.8 mmol/L (3.5-5.5); Total Protein, Blood 5.4 g/dL (6.4-8.2)
--- NOTE | 2022-11-01 06:02 | NUR ---
SHIFT SUMMARY PT A&OX4, AND COOPERATIVE WITH CARE. NO ACUTE CHANGES, VSS. MEDICATED FOR PAIN ONCE WITH OXY. TOLERATING PO INTAKE. SBA WITH FWW/GB. SATS >90 ON RA. UROSTOMY DRAINING YELLOW URINE. CALLS APPROPRIATELY, CALL LIGHT WITHIN REACH. PLAN IS TO DISCHARGE TODAY HOME ON HOSPICE.
[2022-11-01 07:07] VITALS: BP 120/46
[2022-11-01] MEDS ORDERED: ACET325 PO (10:35)
[2022-11-01] MEDS ORDERED: DOXY100 PO (10:35)
--- NOTE | 2022-11-01 11:43 | NUR ---
DISCHARGE PATIENT EATING & DRINKING W/O DIFFICULTY. UROSTOMY PRODUCING URINE WELL TO THOMAS DRAINAGE BAG. PATIENT DENIES CP/PRESSURE/SOB. AMBULATING WITH FWW & GB SBA. UP TO CHAIR FOR MEALS. DISCUSSED DISCHARGE INSTRUCTIONS WITH PATIENT & AT [facility]. AWAITING TRANSPORTATION TO TRANSPORT HOME ON HOSPICE.
--- NOTE | 2022-11-01 12:36 | NUR ---
patient escorted out via gurney with [facility] transport
== END 2022-11-01 12:38 | disposition home or self-care (01) | DRG 871 ==
LOC: ER 04:21 → SURS 04:22 → ICUE 04:22 → SURS 15:29
PROVIDERS: Family Medicine; Student in an Organized Health Care Education/Training Program; ADMIT Family Medicine
PROC: 5A09357 Assistance with Respiratory Ventilation, Less than 24 Consecutive Hours, Continuous Positive Airway Pressure (ICD-10-PCS; principal; 2022-10-27)
PROC: 3E03329 Introduction of Other Anti-infective into Peripheral Vein, Percutaneous Approach (ICD-10-PCS; 2022-10-27)
DX: A41.1 Sepsis due to other specified staphylococcus (principal); I21.4 Non-ST elevation (NSTEMI) myocardial infarction; I50.31 Acute diastolic (congestive) heart failure; J18.9 Pneumonia, unspecified organism; J96.91 Respiratory failure, unspecified with hypoxia; I47.1 Supraventricular tachycardia; I13.0 Hypertensive heart and chronic kidney disease with heart failure and stage 1 through stage 4 chronic kidney disease, or unspecified chronic kidney disease; E87.20 Acidosis, unspecified; R04.2 Hemoptysis; Z16.11 Resistance to penicillins; N17.9 Acute kidney failure, unspecified; Z66 Do not resuscitate; Z51.5 Encounter for palliative care; I25.10 Atherosclerotic heart disease of native coronary artery without angina pectoris; I48.0 Paroxysmal atrial fibrillation; E11.22 Type 2 diabetes mellitus with diabetic chronic kidney disease; N18.30 Chronic kidney disease, stage 3 unspecified; I27.20 Pulmonary hypertension, unspecified; I08.2 Rheumatic disorders of both aortic and tricuspid valves; E11.42 Type 2 diabetes mellitus with diabetic polyneuropathy; E78.5 Hyperlipidemia, unspecified; G47.33 Obstructive sleep apnea (adult) (pediatric); K21.9 Gastro-esophageal reflux disease without esophagitis; E66.9 Obesity, unspecified; R59.1 Generalized enlarged lymph nodes; K80.20 Calculus of gallbladder without cholecystitis without obstruction; K59.00 Constipation, unspecified; M48.00 Spinal stenosis, site unspecified; I95.9 Hypotension, unspecified; R94.31 Abnormal electrocardiogram [ECG] [EKG]; Z85.46 Personal history of malignant neoplasm of prostate; Z88.5 Allergy status to narcotic agent; Z88.8 Allergy status to other drugs, medicaments and biological substances; Z93.6 Other artificial openings of urinary tract status; Z91.048 Other nonmedicinal substance allergy status; Z79.2 Long term (current) use of antibiotics; Z79.899 Other long term (current) drug therapy; Z86.19 Personal history of other infectious and parasitic diseases; I25.2 Old myocardial infarction; Z90.89 Acquired absence of other organs; Z95.5 Presence of coronary angioplasty implant and graft; Z89.411 Acquired absence of right great toe; Z85.72 Personal history of non-Hodgkin lymphomas; Z92.21 Personal history of antineoplastic chemotherapy; Z90.79 Acquired absence of other genital organ(s); Z90.6 Acquired absence of other parts of urinary tract; Z87.891 Personal history of nicotine dependence; Z68.28 Body mass index [BMI] 28.0-28.9, adult; Z99.89 Dependence on other enabling machines and devices; Z88.1 Allergy status to other antibiotic agents; Z79.01 Long term (current) use of anticoagulants; Z79.4 Long term (current) use of insulin; Z79.891 Long term (current) use of opiate analgesic
CPT/HCPCS: 36415; 71045; 71260; 80048; 80053; 82947; 83605; 83690; 83880; 84145; 84484; 85025; 85520; 85610; 87040; 87077; 87186; 93005; 93010; 93306; 94760; 96361; 96365-59; 96367; 96375-59; 96376-59; 97161; 97530; 99285-25; A9270; J0295; J0690; J0696; J1170; J1940; J2270; J2370; J2405; J3010; J7040; J7120; Q9967